=== PATIENT | female | born 1940 | race Caucasian/White ===

== ENCOUNTER 2024-10-10 06:33 | Emergency (ER) | payer OTHER, MEDICAID, SELFPAY ==
[2024-10-10 06:42] VITALS: BP 148/63; PULSE 92; RESP 16; TEMP 36.6; O2SAT 97
--- NOTE | 2024-10-10 06:55 | XR_ITS ---
Examination: AP chest single view TECHNIQUE: AP portable upright chest single view Exam date and time: October 10, 2024, 0803 hours Comparison November 17, 2023. INDICATIONS: Shortness of breath history. FINDINGS: Mild chronic heart failure pattern Mild enlargement cardiac contour. Prominent vascular congestion with mild bibasilar edema Significant bilateral pleural effusions Prominent osteopenia IMPRESSION: Mild heart failure with significant bilateral pleural effusions
--- NOTE | 2024-10-10 06:55 | EKG_ITS ---
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
--- NOTE | 2024-10-10 07:03 | PD.EDSOB ---
ED SOB =RME/HPI General Chief Complaint: Shortness of Breath/Dyspnea Stated Complaint: SOB Time Seen by Provider: 10/10/24 06:41 Arrival date/time: 10/10/24 06:33 Limitations: no limitations RME / HPI RME / HPI Narrative: 83 year old female with history of CHF, HTN, type 2 diabetes presented to the ER accompanied by grandson with a chief complaint of SOB. Per patient, she stated she has chronic pain but had worsened overnight and asked her for pain medication. provided the wrong medication and gave her a BP medication at unknown time. Patient stated no other complaints. Related Data Home Medications ?Medication ?Instructions ?Recorded ?Confirmed metformin 500 mg tablet 500 mg PO QDAY 10/10/21 10/10/21 amlodipine 5 mg tablet 5 mg PO QDAY 11/18/23 11/18/23 celecoxib 100 mg capsule 100 mg PO QDAY 11/18/23 11/18/23 doxazosin 2 mg tablet 2 mg PO HS 11/18/23 11/18/23 Held on 11/20/23. Instructions: Resume on 11/27/23. re-check with PCP rosuvastatin 5 mg tablet 5 mg PO QPM 11/18/23 11/18/23 Previous Rx's ?Medication ?Instructions ?Recorded apixaban 5 mg tablet (Eliquis) 5 mg PO BID 30 days #60 tabs 11/20/23 furosemide 40 mg tablet (Lasix) 40 mg PO QDAY 30 days #30 tabs 11/20/23 lisinopril 2.5 mg tablet 2.5 mg PO QDAY #30 tabs 10/10/24 Allergies Allergy/AdvReac Type Severity Reaction Status Date / Time No Known Allergies Allergy Verified 10/10/24 06:35 Review of Systems Review of Systems Systems Reviewed: All systems reviewed, normal except as documented Past Medical History Past Medical History CARDIAC: Positive Cardiac Disorders, Congestive Heart Failure and Hypertension GASTROINTESTINAL: Positive Pancreatitis ENDOCRINE: Positive Diabetes Mellitus Type 2 Social History SMOKING STATUS: Never smoker ED Exam General Limitations: Present no limitations General appearance: Present alert, in no apparent distress and other (hard of hearing, thin build, frail, speaks in full sentences) Head Head exam: Present atraumatic Eye Eye exam: Present normal appearance, PERRL and EOMI ENT ENT exam: Present normal exam, normal oropharynx and mucous membranes moist Neck Neck exam: Present normal inspection, full ROM and trachea midline Chest Chest inspection: Present symmetric chest wall rise and other (barrel chest) Respiratory Respiratory exam: Present normal lung sounds bilaterally and other (no respiratory distress) Cardiovascular Cardiovascular exam: Present regular rate, normal rhythm and normal heart sounds Abdominal Exam Abdominal exam: Present soft and normal bowel sounds Extremities Exam Extremities exam: Present normal inspection and full ROM Back Exam Back exam: Present normal inspection and full ROM Neurological Exam Neurological exam: Present alert, oriented X3 and CN II-XII intact Psychiatric Psychiatric exam: Present normal affect and normal mood Skin Skin exam: Present warm, dry, intact and normal color Course Course Course Narrative: Chest x-ray has been ordered due to determining etiology of SOB. Quality Measures none Orders Category Date Time Status Chemical Compounder STAT Care 10/10/24 06:55 Completed Continuous Pulse Oximetry ONCE Care 10/10/24 06:55 Completed EKG (ED ONLY) *Do not use* NOW Care 10/10/24 06:55 Completed Discharge Routine Discharge 10/10/24 11:07 Active Discharge Routine Discharge 10/10/24 11:[address] chest wo con Stat Exams 10/10/24 07:23 Completed EKG (ED Only) Stat Exams 10/10/24 06:55 Draft XR chest 1V portable Stat Exams 10/10/24 06:55 Completed B-Type Natriuretic Peptide Stat Lab 10/10/24 08:03 Completed CBC Stat Lab 10/10/24 08:03 Completed Comprehensive Metabolic Panel Stat Lab 10/10/24 08:03 Completed Troponin I Stat Lab 10/10/24 08:03 Completed Aspirin Chew Med 10/10/24 06:55 Discontinued 324 mg PO X1 ONE Vital Signs Vital signs: Vital Signs Temperature 97.8 F 10/10/24 06:42 Pulse Rate 92 10/10/24 06:42 Respiratory Rate 16 10/10/24 06:42 Blood Pressure 148/63 H 10/10/24 06:42 Pulse Oximetry (%) 97 10/10/24 06:42 Oxygen Delivery Method Room Air 10/10/24 06:42 Shortness of Breath / Dyspnea Patient data External records reviewed:: [facility] previous records Clinical information provided by:: patient and family (grandson) Social determinants that could affect healthcare access:: none Patient has the following chronic illnesses:: CHF, HTN, type 2 diabetes How is presenting disease/condition affected by chronic disease/condition?: exacerbated by Evaluation data The following diagnostics were reviewed and interpreted by me:: lab results, radiology exam(s) and EKG tracing(s) (EKG#1: EKG at 0711 hours.Interpreted by me: atrial fibrilation, rate 102) Lab and/or radiology exams considered but not ordered:: none Interpretation Summary: Ordering Physician: Davin Dale MD Date of Service: 10/10/24 Procedure(s): XR chest 1V portable Accession Number(s): [id number] cc: Davin Dale MD; Sam Salcedo MD; Yasmany Gorman MD~ Examination: AP chest single view TECHNIQUE: AP portable upright chest single view Exam date and time: October 10, 2024, 0803 hours Comparison November 17, 2023. INDICATIONS: Shortness of breath history. FINDINGS: Mild chronic heart failure pattern Mild enlargement cardiac contour. Prominent vascular congestion with mild bibasilar edema Significant bilateral pleural effusions Prominent osteopenia IMPRESSION: Mild heart failure with significant bilateral pleural effusions Dictated By: Sam Salcedo MD Signed By: <Electronically signed by Sam Salcedo MD in OV> 10/10/24 0811 Ordering Physician: Davin Dale MD Date of Service: 10/10/24 Procedure(s): CT chest wo con Accession Number(s): [id number] cc: Davin Dale MD; Sam Salecdo MD; Yasmany Gorman MD~ Examination: CT chest, without intravenous contrast. Sagittal and coronal 2-D reconstructions. Exam date and time: October 10, 2024 0925 hours Comparison November 17, 2023 INDICATIONS: Shortness of breath beginning 4 days ago CTDI:vol (mGy) 9.52 DLP: (mGycm) 293 Technique: Multiple 3.0 mm axial sections of the chest to been obtained. Bone and lung density settings are obtained. Sagittal and coronal 2-D reconstructions have been obtained. Low dose protocols were performed. One or more of the following dose reduction techniques were used; automated exposure control, adjustment of the mA and/or KV according to patient size, use of iterative reconstruction technique. Findings: No thoracic aortic aneurysm dilatation Main pulmonary artery segment 32 mm Mild enlargement left atrium and left ventricle Mitral valvular calcification Prominent vascular congestion with mild edema versus pneumonia at the lung bases Large bilateral pleural effusions since 3 to 4 mm pericardial effusion Liver is irregular in contour Spleen is nonenlarged Mild ascites No visualized pancreatic mass Severe osteopenia IMPRESSION: Mild heart failure Edema versus mild pneumonia at the lung bases Large bilateral pleural effusions Cirrhosis versus primary hepatocellular disease Mild ascites Dictated By: Sam Salcedo MD Signed By: <Electronically signed by Sam Salcedo MD in OV> 10/10/24 0947 Medications / Prescriptions Medications or Prescriptions considered but not ordered:: none Medication administrations:: Medication Administration History Discontinued Medications Aspirin (Aspirin 81 Mg Chew) 324 mg PO X1 ONE Stop: 10/10/24 06:56 Last Admin: 10/10/24 07:43 Dose: 324 mg Documented By: TM see above. Consultations Consultation(s) initiated? (list below): No Diagnosis Shortness of Breath Differential Diagnosis: congestive heart failure, pulmonary embolism and other (anxiety ) Most likely diagnosis given after review of the tests above:: Afib, CHF Admission Indicated Admission indicated?: not indicated Explain why admission is indicated or not indicated:: Patient was admitted 11 months ago here with similar symptoms, diagnosed with pericardial effusion. Was under the impression that she might have recurrence of this condition. Work up was negative. I looked through her EMR and could not find a contrindication or a reason why she is not on an LAURA/ARB, therefore I started her on Lisinopril 2.5 mg. Discussed the results with her daughter in law. Also, she may need to be treated for depression, which could be the underlying reason for her insomnia. Admission Request Was there a request for admission?: No Disposition Plan Disposition Plan: Discharge Discharge Attestation Discharge Attestation: The patient and all family members were given an opportunity to ask questions and understood the discharge instructions. Discharge instructions specifically effects, indications for sooner follow up or return to the emergency department, and the expected course of current diagnosis. Patient condition: Stable Discharge Plan Plan Patient Disposition: HOME (Self Care) Discharge Disposition comment: FU with your photonics engineering technician Patient condition on transfer: Stable Prescriptions/Referrals Prescriptions/Med Rec: New lisinopril 2.5 mg tablet 2.5 mg PO QDAY Qty: 30 0RF No Action metformin 500 mg Tablet 500 mg PO QDAY rosuvastatin 5 mg Tablet 5 mg PO QPM Rx Instructions: TAKE WITH DINNER doxazosin 2 mg Tablet 2 mg PO HS celecoxib 100 mg Capsule 100 mg PO QDAY Rx Instructions: TAKE WITH BREAKFAST amlodipine 5 mg Tablet 5 mg PO QDAY Rx Instructions: TAKE AT NOON furosemide [Lasix] 40 mg tablet 40 mg PO QDAY 30 Days Qty: 30 3RF Eliquis 5 mg tablet 5 mg PO BID 30 Days Qty: 60 3RF Referrals: Yasmany Gorman MD [Primary Care Provider] - In 1 week Problem List Clinical Impression: Afib, Congestive heart failure Patient/Caregiver Discharge Instructions Discharge Activity: activity as tolerated Education Materials: AFL/Afib, Coping with Heart Failure Print Language: Algerian Stand Alone Forms: Amy Award Info., Patient Portal Info Letter
--- NOTE | 2024-10-10 07:23 | XR_ITS ---
Examination: CT chest, without intravenous contrast. Sagittal and coronal 2-D reconstructions. Exam date and time: October 10, 2024 0925 hours Comparison November 17, 2023 INDICATIONS: Shortness of breath beginning 4 days ago CTDI:vol (mGy) 9.52 DLP: (mGycm) 293 Technique: Multiple 3.0 mm axial sections of the chest to been obtained. Bone and lung density settings are obtained. Sagittal and coronal 2-D reconstructions have been obtained. Low dose protocols were performed. One or more of the following dose reduction techniques were used; automated exposure control, adjustment of the mA and/or KV according to patient size, use of iterative reconstruction technique. Findings: No thoracic aortic aneurysm dilatation Main pulmonary artery segment 32 mm Mild enlargement left atrium and left ventricle Mitral valvular calcification Prominent vascular congestion with mild edema versus pneumonia at the lung bases Large bilateral pleural effusions since 3 to 4 mm pericardial effusion Liver is irregular in contour Spleen is nonenlarged Mild ascites No visualized pancreatic mass Severe osteopenia IMPRESSION: Mild heart failure Edema versus mild pneumonia at the lung bases Large bilateral pleural effusions Cirrhosis versus primary hepatocellular disease Mild ascites
[2024-10-10] MEDS: ASPIRIN 81 MG CHEW 324 MG PO (07:43)
--- NOTE | 2024-10-10 08:00 | PC.NURSE ---
PT REPORTS THAT SHE IS FEELING SOB. USED [facility] TO COMMUNICATE (KYLIE SP45). PT DENIES ANY PAIN. FAMILY AT BEDSIDE ATTENTIVE TO PT. CALL [facility] IN [place]
[2024-10-10 08:18] LABS: Basophils % (Auto) 0 % (0-2.5); Eosinophils % (Auto) 0 % (0-10); Hematocrit 40.4 % (36.0-46.0); Hemoglobin 13.2 g/dL (12.0-16.0); Immature Granulocytes % (Auto) 1 % (0-0); Immature Granulocytes Auto 0.04 Thou/mm3 (0.00-0.00); Lymphocytes # (Auto) 0.8 Thou/mm3 (1.0-4.8); Lymphocytes % (Auto) 9 % (10-50); Mean Corpuscular HGB Conc 32.7 g/dl (31.0-37.0); Mean Corpuscular Hemoglobin 28.4 pg (25.0-35.0); Mean Corpuscular Volume 87 fL (80-100); Monocytes # (Auto) 0.5 Thou/mm3 (0.0-0.8); Monocytes % (Auto) 6 % (0-12); Neutrophils # (Auto) 7.1 Thou/mm3 (1.8-7.7); Neutrophils % (Auto) 84 % (37-80); Nucleated Red Blood Cell % 0 /100 WBC (0); Platelet Count 234 Thou/mm3 (140-440); RDW Standard Deviation 49.8 fL (36.4-46.3); Red Blood Count 4.65 Miln/mm3 (4.00-5.20); White Blood Count 8.5 Thou/mm3 (3.6-11.0)
[2024-10-10 08:37] LABS: B-Type Natriuretic Peptide 241 pg/mL (0-100)
[2024-10-10 08:39] LABS: Alanine Aminotransferase < 7 U/L (10-49); Albumin, Serum 4.3 gm/dL (3.4-4.8); Albumin/Globulin Ratio 1.5 (1.2-2.2); Alkaline Phosphatase 73 U/L (46-116); Anion Gap 9 (7-16); Aspartate Amino Transferase 13 U/L (0-34); BUN/Creatinine Ratio 37 Ratio (12-20); Bilirubin,Total 0.5 mg/dL (0.3-1.2); Blood Urea Nitrogen 22 mg/dL (9-23); Calcium 9.3 mg/dL (8.3-10.6); Calcium (Corrected) 9.3 mg/dL (8.5-10.1); Carbon Dioxide 28.7 mMol/L (20.0-31.0); Chloride 105 mMol/L (98-107); Creatinine (Component) 0.6 mg/dL (0.6-1.3); Globulin 2.9 gm/dL (2.3-3.5); Glucose 140 mg/dL (74-106); Osmolality,Calculated 290 (275-295); Potassium 3.6 mMol/L (3.4-5.1); Sodium 143 mMol/L (136-145); Total Protein 7.2 gm/dL (5.7-8.2); Troponin I < 0.020 ng/mL (0.0-0.045); eGFR > 60 See Note
[2024-10-10 10:28] VITALS: BP 154/81; PULSE 97; RESP 17; TEMP 36.2; O2SAT 96
[2024-10-10 12:10] VITALS: BP 171/80; PULSE 97; RESP 18; TEMP 36.5; O2SAT 97
== END 2024-10-10 12:41 | disposition home or self-care (01) ==
PROVIDERS: Emergency Provider Emergency Medicine; PCP Family Medicine
DX: I11.0 Hypertensive heart disease with heart failure (principal); I50.9 Heart failure, unspecified; I48.91 Unspecified atrial fibrillation; R18.8 Other ascites; Z79.01 Long term (current) use of anticoagulants
CPT/HCPCS: 36415; 71045; 71250; 80053; 83880; 84484; 85025; 93005; 99284; A9270

== ENCOUNTER 2024-10-25 11:16 | Emergency (ER) | payer MEDICARE, MEDICAID, SELFPAY | END 2024-10-25 12:55 | disposition home or self-care (01) | PROVIDERS: Emergency Provider Emergency Medicine; PCP Student in an Organized Health Care Education/Training Program; Referring Provider Emergency Medicine | DX: R06.02 Shortness of breath (principal) | CPT/HCPCS: 99281 ==

== ENCOUNTER 2024-12-03 08:14 | Emergency (ER) | payer MEDICARE, SELFPAY ==
--- NOTE | 2024-12-03 | XR_ITS ---
Examination: PA chest single view TECHNIQUE: Upright PA chest single view. Date and time: December 03, 2024, 1330 hours Comparison December 03, 2024 8:48 AM INDICATIONS: Post right thoracentesis today FINDINGS: No pneumothorax post thoracentesis Mild prominence cardiac contour Significant bilateral pleural fluid remains IMPRESSION: No pneumothorax post thoracentesis
[2024-12-03 08:20] VITALS: BP 168/90; BP 189/72; PULSE 96; RESP 21; TEMP 36.6; O2SAT 95; BMI 21.8
--- NOTE | 2024-12-03 08:40 | EKG_ITS ---
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
--- NOTE | 2024-12-03 08:40 | XR_ITS ---
Examination: PA lateral chest 2 views TECHNIQUE: Upright PA lateral chest 2 views Date and time: December 03, 2024 0858 hours, comparison October 10, 2024 INDICATION: Chest pain today. FINDINGS: Mild prominence cardiac contour Large right moderate left pleural effusions Moderate vascular congestion Prominent osteopenia IMPRESSION: Large right moderate left pleural effusions
--- NOTE | 2024-12-03 08:55 | PD.EDRME ---
Rapid Medical Screening Exam RME Arrival date/time: 12/03/24 08:14 Chief Complaint: Shortness of Breath/Dyspnea Time Seen by Provider: 12/03/24 08:24 Vital signs: Vital Signs Temperature 97.8 F 12/03/24 08:20 Pulse Rate 96 12/03/24 08:20 Respiratory Rate 21 H 12/03/24 08:20 Blood Pressure 189/72 H 12/03/24 08:20 Pulse Oximetry (%) 95 12/03/24 08:20 Oxygen Delivery Method Room Air 12/03/24 08:20 Vital signs reviewed by provider: Yes RME Narrative: 83-year-old with history of A-fib with brought in by son for evaluation of shortness of breath x 12 hours. Patient reports progressively worsening dyspnea over the last several weeks. She is currently using her 's at home O2 (patient is on does not know how many liters). Patient was pending a cardiac stress test today but canceled the appointment due to worsening dyspnea.
[2024-12-03 09:04] LABS: Basophils % (Auto) 0 % (0-2.5); Eosinophils % (Auto) 0 % (0-10); Hematocrit 40.6 % (36.0-46.0); Hemoglobin 13.6 g/dL (12.0-16.0); Immature Granulocytes % (Auto) 0 % (0-0); Immature Granulocytes Auto 0.01 Thou/mm3 (0.00-0.00); Lymphocytes # (Auto) 0.9 Thou/mm3 (1.0-4.8); Lymphocytes % (Auto) 24 % (10-50); Mean Corpuscular HGB Conc 33.5 g/dl (31.0-37.0); Mean Corpuscular Hemoglobin 27.6 pg (25.0-35.0); Mean Corpuscular Volume 83 fL (80-100); Monocytes # (Auto) 0.3 Thou/mm3 (0.0-0.8); Monocytes % (Auto) 8 % (0-12); Neutrophils # (Auto) 2.6 Thou/mm3 (1.8-7.7); Neutrophils % (Auto) 67 % (37-80); Nucleated Red Blood Cell % 0 /100 WBC (0); Platelet Count 233 Thou/mm3 (140-440); RDW Standard Deviation 44.8 fL (36.4-46.3); Red Blood Count 4.92 Miln/mm3 (4.00-5.20); White Blood Count 3.9 Thou/mm3 (3.6-11.0)
[2024-12-03 09:18] LABS: INR 1.1 (0.9-1.3); Partial Thromboplastin Time 27.3 Seconds (22.0-36.0); Prothrombin Time 12.4 Seconds (9.0-12.2)
[2024-12-03 09:21] LABS: B-Type Natriuretic Peptide 319 pg/mL (0-100)
[2024-12-03 09:35] LABS: Alanine Aminotransferase 10 U/L (10-49); Albumin, Serum 4.4 gm/dL (3.4-4.8); Albumin/Globulin Ratio 1.7 (1.2-2.2); Alkaline Phosphatase 68 U/L (46-116); Anion Gap 7 (7-16); Aspartate Amino Transferase 15 U/L (0-34); BUN/Creatinine Ratio 26 Ratio (12-20); Bilirubin,Total 0.5 mg/dL (0.3-1.2); Blood Urea Nitrogen 13 mg/dL (9-23); Calcium 9.6 mg/dL (8.3-10.6); Calcium (Corrected) 9.6 mg/dL (8.5-10.1); Carbon Dioxide 30.7 mMol/L (20.0-31.0); Chloride 102 mMol/L (98-107); Creatinine (Component) 0.5 mg/dL (0.6-1.3); Globulin 2.6 gm/dL (2.3-3.5); Glucose 90 mg/dL (74-106); LDH (Lactate Dehydrogenase) 155 U/L (120-246); Magnesium 1.3 mg/dL (1.6-2.6); Osmolality,Calculated 279 (275-295); Potassium 3.9 mMol/L (3.4-5.1); Sodium 140 mMol/L (136-145); Troponin I < 0.020 ng/mL (0.0-0.045); eGFR > 60 See Note
[2024-12-03 10:10] LABS: Collection Type, Urine Clean Catch
[2024-12-03 10:18] LABS: Bilirubin,Urine Negative (Negative); Blood,Urine Negative (Negative); Clarity,Urine Clear (Clear/Hazy); Color,Urine Lt-Yellow (Lt Yel-Yel); Glucose, Urine Negative (Negative); Ketones,Urine 1+ (Negative); Leukocyte Esterase,Urine Negative (Negative); Nitrite,Urine Negative (Negative); Protein,Urine Negative (Neg - Trace); RBC,Urine 7 /hpf (0-3); Specific Gravity,Urine 1.016 (1.001-1.035); Squamous Epithelial Cell,Urine 1 /hpf (0-5); Urobilinogen,Urine Negative mg/dL (0.0-1.0); WBC,Urine 2 /hpf (0-5)
[2024-12-03 10:35] LABS: Amphetamine/Methamp Scrn,U Negative (Negative); Barbiturate Screen,Urine Negative (Negative); Benzodiazepines Screen,Urine Negative (Negative); Benzoylecgonine Screen, Ur Negative (Negative); Fentanyl Screen,Urine Negative (Negative); Opiate Screen,Urine Negative (Negative); THC Screen,Urine Negative (Negative)
--- NOTE | 2024-12-03 11:24 | PD.EDSOB ---
ED SOB =RME/HPI General Chief Complaint: Shortness of Breath/Dyspnea Stated Complaint: SOB since last night Time Seen by Provider: 12/03/24 08:24 Arrival date/time: 12/03/24 08:14 RME / HPI RME / HPI Narrative: 83-year-old with history of A-fib hypertension, diabetes mellitus, history of pleural effusion in the past, with brought in by son for evaluation of shortness of breath x 12 hours. Patient reports progressively worsening dyspnea over the last several weeks. She is currently using her 's at home O2 (patient is on does not know how many liters). Patient denies any cough. Denies any fever denies any chest pain. Patient was pending a cardiac stress test today but canceled the appointment due to worsening dyspnea. Related Data Home Medications ?Medication ?Instructions ?Recorded ?Confirmed metformin 500 mg tablet 500 mg PO QDAY 10/10/21 10/10/21 amlodipine 5 mg tablet 5 mg PO QDAY 11/18/23 11/18/23 celecoxib 100 mg capsule 100 mg PO QDAY 11/18/23 11/18/23 doxazosin 2 mg tablet 2 mg PO HS 11/18/23 11/18/23 Held on 11/20/23. Instructions: Resume on 11/27/23. re-check with PCP rosuvastatin 5 mg tablet 5 mg PO QPM 11/18/23 11/18/23 Previous Rx's ?Medication ?Instructions ?Recorded apixaban 5 mg tablet (Eliquis) 5 mg PO BID 30 days #60 tabs 11/20/23 furosemide 40 mg tablet (Lasix) 40 mg PO QDAY 30 days #30 tabs 11/20/23 lisinopril 2.5 mg tablet 2.5 mg PO QDAY #30 tabs 10/10/24 Allergies Allergy/AdvReac Type Severity Reaction Status Date / Time No Known Allergies Allergy Verified 12/03/24 08:17 Review of Systems Review of Systems Narrative Review of Systems: Review of system reviewed and within normal limits except mentioned in HPI ED Exam Narrative Physical exam: VITAL SIGNS: Reviewed. GENERAL APPEARANCE: Alert and interactive, follows commands, no acute distress, HEAD AND FACE: Non-traumatic. ENT: PERRL, pink conjunctivitis, eyelid no trauma, Mucous membrane moist. NECK: Supple, nontender, no nuchal rigidity. CHEST: No tenderness, no crepitus, no paradoxical movement, no retractions. LUNGS: Symmetric, no rales, no wheezing, no ronchi, no stridor, decreased breath sounds bilaterally. HEART: Regular rate, regular rhythm, no murmur, no gallops. ABDOMEN: Soft, positive bowel sounds, nondistended, no guarding, nontender, no rebound, no masses, RECTAL: Deferred. GENITAL: Deferred. NEUROLOGICAL: Gross motor function intact sensory function intact, Appropriate for age. MUSCULOSKELETAL: low back nontender, full range of motion. EXTREMITIES: Nontender, full range of motion. SKIN: Color pink, dry, no rash, no lacerations, no abrasions, no contusions. LYMPHATICS: Deferred. Course Quality Measures none Orders Category Date Time Status EKG (ED ONLY) *Do not use* NOW Care 12/03/24 08:40 Completed EKG (ED Only) Stat Exams 12/03/24 08:40 Draft US thoracentesis Stat Exams 12/03/24 11:31 Completed XR chest 1V post procedure Stat Exams 12/03/24 Completed XR chest 2V Stat Exams 12/03/24 08:40 Completed Amylase,Pleural Fluid Routine Lab 12/03/24 14:20 Completed B-Type Natriuretic Peptide Stat Lab 12/03/24 08:50 Completed Body Fld Cult w [address] Routine Lab 12/03/24 14:20 Received CBC Stat Lab 12/03/24 08:50 Completed Comprehensive Metabolic Panel Stat Lab 12/03/24 08:50 Completed Drug Screen,Urine Stat Lab 12/03/24 10:04 Completed Glucose,Pleural Fluid Routine Lab 12/03/24 14:20 Completed LDH (Lactate Dehydrogenase) Stat Lab 12/03/24 08:50 Completed LDH,Pleural Fluid Routine Lab 12/03/24 14:20 Completed Magnesium Stat Lab 12/03/24 08:50 Completed Partial Thromboplastin Time Stat Lab 12/03/24 08:50 Completed Pleural Fld Cell Count Diff Routine Lab 12/03/24 14:20 Completed Protein Total,Pleural Fluid Routine Lab 12/03/24 14:20 Completed Prothrombin Time with INR Stat Lab 12/03/24 08:50 Completed Troponin I Stat Lab 12/03/24 08:50 Completed Urinalysis Stat Lab 12/03/24 10:04 Completed Lidocaine 1% Pf 30 ml [Xylocaine 1% Pf 30 ml] Med 12/03/24 12:34 Discontinued 30 ml .ROUTE .STK-MED ONE Magnesium Sulfate 2 GM Ivpb [Magnesium Sulfate Ivpb] Med 12/03/24 11:31 Discontinued 2 gm in 50 ml IV X1 Vital Signs Vital signs: Vital Signs Temperature 97.8 F 12/03/24 08:20 Pulse Rate 96 12/03/24 08:20 Respiratory Rate 21 H 12/03/24 08:20 Blood Pressure 189/72 H 12/03/24 08:20 Pulse Oximetry (%) 95 12/03/24 08:20 Oxygen Delivery Method Room Air 12/03/24 08:20 Shortness of Breath / Dyspnea [facility] Narrative MDM Narrative:: 83-year-old with history of A-fib hypertension, diabetes mellitus, history of pleural effusion in the past, with brought in by son for evaluation of shortness of breath x 12 hours. Patient reports progressively worsening dyspnea over the last several weeks. She is currently using her 's at home O2 (patient is on does not know how many liters). Patient denies any cough. Denies any fever denies any chest pain. Patient was pending a cardiac stress test today but canceled the appointment due to worsening dyspnea. EKG as interpreted by me showed chronic A-fib, ventricular rate of 99 bpm, no ST segment elevation or depression noted patient CBC showed no leukocytosis, neurovascular labs unremarkable. Urinalysis no UTI. Chest x-ray showed Large right moderate left pleural effusions Plan of care discussed with the family and patient including ultrasound-guided thoracentesis.. Both of them agree with the plan. Patient underwent ultrasound-guided thoracentesis and was able to remove 1 L of fluid. Was sent to the lab for pleural fluid analysis. Pending pathology results. Patient was advised to follow-up with PCP for pathology results none Patient data External records reviewed:: None Clinical information provided by:: patient and family Social determinants that could affect healthcare access:: none Patient has the following chronic illnesses:: Hypertension chronic A-fib diabetes mellitus How is presenting disease/condition affected by chronic disease/condition?: exacerbated by Evaluation data The following diagnostics were reviewed and interpreted by me:: lab results, radiology exam(s) and EKG tracing(s) Lab and/or radiology exams considered but not ordered:: None Interpretation Summary: See results MDM Medications / Prescriptions Medications or Prescriptions considered but not ordered:: None Medication administrations:: Medication Administration History Discontinued Medications Magnesium Sulfate (Magnesium Sulfate Ivpb) 2 gm in 50 mls @ 25 mls/hr IV X1 ONE Stop: 12/03/24 13:30 Last Infusion: 12/03/24 13:58 Dose: Infused Documented By: Admin: 12/03/24 11:54 Dose: 25 mls/hr Documented By: MARTINA Lidocaine HCl (Lidocaine Inj Pf 1% 30 Ml Vial) Confirm Administered Dose 30 ml .ROUTE .STK-MED ONE Stop: 12/03/24 12:35 Last Admin: 12/03/24 13:19 Dose: Not Given Documented By: MARTINA Non-Admin Reason: Override Medication Magnesium sulfate Consultations Consultation(s) initiated? (list below): No Diagnosis Shortness of Breath Differential Diagnosis: acute exacerbation of chronic obstructive airways disease, congestive heart failure and community acquired pneumonia Most likely diagnosis given after review of the tests above:: Pleural fluid, history of congestive heart failure Admission Indicated Admission indicated?: not indicated Admission Request Was there a request for admission?: No Disposition Plan Disposition Plan: Discharge Discharge Attestation Discharge Attestation: The patient and all family members were given an opportunity to ask questions and understood the discharge instructions. Discharge instructions specifically effects, indications for sooner follow up or return to the emergency department, and the expected course of current diagnosis. Patient condition: Stable Discharge Plan Plan Patient Disposition: HOME (Self Care) Discharge Disposition comment: Stable Prescriptions/Referrals Prescriptions/Med Rec: No Action metformin 500 mg Tablet 500 mg PO QDAY rosuvastatin 5 mg Tablet 5 mg PO QPM Rx Instructions: TAKE WITH DINNER doxazosin 2 mg Tablet 2 mg PO HS celecoxib 100 mg Capsule 100 mg PO QDAY Rx Instructions: TAKE WITH BREAKFAST amlodipine 5 mg Tablet 5 mg PO QDAY Rx Instructions: TAKE AT NOON furosemide [Lasix] 40 mg tablet 40 mg PO QDAY 30 Days Qty: 30 3RF Eliquis 5 mg tablet 5 mg PO BID 30 Days Qty: 60 3RF lisinopril 2.5 mg tablet 2.5 mg PO QDAY Qty: 30 0RF Referrals: Yasmeen Tran MD [Primary Care Provider] - In 1 week Problem List Clinical Impression: Pleural effusion Patient/Caregiver Discharge Instructions Discharge Activity: activity as tolerated Education Materials: Thoracentesis Dc Additional Instructions: Thank you for the opportunity for serving you today. You are stable for discharged . You are advised to: Follow-up with your PCP in 1 to 2 days Return to ED for worsening of symptoms Increase oral fluids Follow-up with your PCP regarding the pathology of your pleural effusion. Print Language: Yi Stand Alone Forms: Amy Award Info., Patient Portal Info Letter PA/MANUEL Supervising Physician JAMAICA/MANUEL Supervising Physician: Lloyd Duran MD
[2024-12-03 11:29] VITALS: BP 142/112; PULSE 99; RESP 27; O2SAT 97
[2024-12-03 11:31] VITALS: BP 188/117; PULSE 102; RESP 29; O2SAT 95
--- NOTE | 2024-12-03 11:31 | XR_ITS ---
Examination: Ultrasound-guided right thoracentesis Ultrasound right hemithorax Ultrasound left hemithorax Date and time: 12/03/2024 at 1307 hours INDICATIONS: Difficulty breathing this week, large right pleural effusion on chest x-ray today TECHNIQUE AND FINDINGS: Informed consent provided. Timeout performed. Ultrasound images right hemithorax demonstrate large right pleural effusion and images left hemithorax small left pleural effusion Skin prepped over the right back and sterile drape applied ultrasound sterile technique hand hygiene 1% lidocaine administered for local anesthesia Utilizing ultrasonographic guidance 5 Malaysian catheter placed in the right pleural space 850 cc pleural fluid removed Estimated blood loss 0 cc IMPRESSION: Successful ultrasound-guided right thoracentesis, 850 cc pleural fluid removed
[2024-12-03] MEDS: Magnesium Sulfate 2 GM Ivpb 2 GM/50 ML BAG IV (11:54)
[2024-12-03 12:00] VITALS: BP 153/90; PULSE 99; RESP 28; O2SAT 94
[2024-12-03 12:24] VITALS: BP 153/90; PULSE 105; RESP 18; TEMP 36.6; O2SAT 95
[2024-12-03 12:30] VITALS: BP 176/111; PULSE 96; RESP 21; O2SAT 95
[2024-12-03 14:55] LABS: Pleural Fluid WBC 928 /cmm
[2024-12-03 14:56] LABS: Pleural Fluid Appearance Hazy; Pleural Fluid Color Yellow; Pleural Fluid Mononuclear 97 %; Pleural Fluid Polynuclear 3 %; Pleural Fluid RBC 1000 /cmm
[2024-12-03 15:08] LABS: Amylase,Pleural Fluid 78 IU/L; Glucose,Pleural Fluid 96 mg/dL; LDH,Pleural Fluid 93 IU/L; Protein Total,Pleural Fluid 4.2 g/dL
== END 2024-12-03 16:35 | disposition home or self-care (01) ==
PROVIDERS: Nurse Practitioner Family; Physician Assistant; Emergency Provider Emergency Medicine; PCP Family Medicine
DX: J90 Pleural effusion, not elsewhere classified (principal); I45.10 Unspecified right bundle-branch block; I48.91 Unspecified atrial fibrillation; I10 Essential (primary) hypertension; E11.9 Type 2 diabetes mellitus without complications
CPT/HCPCS: 32555; 36415; 71046; 80053; 80307; 81001; 82150; 82945; 83615; 83735; 83880; 84157; 84484; 85025; 85610; 85730; 87070; 87075; 87205; 89051; 93005; 96365; 96366; 99284; C1729; J3475

== ENCOUNTER 2024-12-11 10:28 | Emergency (ER) | payer MEDICARE, SELFPAY ==
[2024-12-11 10:41] VITALS: BP 178/80; PULSE 102; RESP 16; TEMP 36.9; O2SAT 95; BMI 23.4
--- NOTE | 2024-12-11 11:08 | EKG_ITS ---
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
--- NOTE | 2024-12-11 11:08 | XR_ITS ---
Examination: PA lateral chest 2 views Technique: Upright PA lateral chest 2 views Date and time: December 11, 2024 1119 hrs. Comparison December 04, 1999 185 Indications: Status post thoracentesis Findings: Chronic heart failure pattern with mild to moderate enlargement cardiac contour prominent vascular congestion and significant bilateral pleural effusions No pneumothorax Impression: Chronic heart failure pattern No pneumothorax
--- NOTE | 2024-12-11 11:09 | PD.EDRME ---
Rapid Medical Screening Exam RME Arrival date/time: 12/11/24 10:28 This is an 83-year-old female that comes into the emergency room with complaints of shortness of breath. Patient recently had a thoracentesis done on December 03, 2024. 850 mL of fluid was removed at that time. Patient complains of shortness of breath and some mild chest pain. Patient has a history of high blood pressure, diabetes, atrial fibrillation and hyperlipidemia. I have greeted and performed a focused initial assessment of this patient. Initial appropriate labs ordered at this time. A comprehensive ED assessment and evaluation of the patient and analysis of all test and completion of medical decision making process will be conducted by additional ED provider. Chief Complaint: Shortness of Breath/Dyspnea Time Seen by Provider: 12/11/24 10:31 Vital signs: Vital Signs Temperature 98.5 F 12/11/24 10:41 Pulse Rate 102 H 12/11/24 10:41 Respiratory Rate 16 12/11/24 10:41 Blood Pressure 178/80 H 12/11/24 10:41 Pulse Oximetry (%) 95 12/11/24 10:41 Oxygen Delivery Method Room Air 12/11/24 10:41
[2024-12-11 12:27] LABS: Basophils # (Auto) 0.0 Thou/mm3 (0.0-0.2); Basophils % (Auto) 1 % (0-2.5); Eosinophils # (Auto) 0.2 Thou/mm3 (0.0-0.5); Eosinophils % (Auto) 4 % (0-10); Hematocrit 42.1 % (36.0-46.0); Hemoglobin 13.5 g/dL (12.0-16.0); Immature Granulocytes Auto 0.02 Thou/mm3 (0.00-0.00); Lymphocytes # (Auto) 1.2 Thou/mm3 (1.0-4.8); Lymphocytes % (Auto) 20 % (10-50); Mean Corpuscular HGB Conc 32.1 g/dl (31.0-37.0); Mean Corpuscular Hemoglobin 27.9 pg (25.0-35.0); Mean Corpuscular Volume 87 fL (80-100); Monocytes # (Auto) 0.5 Thou/mm3 (0.0-0.8); Monocytes % (Auto) 8 % (0-12); Neutrophils # (Auto) 4.2 Thou/mm3 (1.8-7.7); Neutrophils % (Auto) 68 % (37-80); Nucleated Red Blood Cell # 0.00 Thou/mm3 (0.00-0.00); Nucleated Red Blood Cell % 0 /100 WBC (0); Platelet Count 272 Thou/mm3 (140-440); RDW Standard Deviation 48.3 fL (36.4-46.3); Red Blood Count 4.84 Miln/mm3 (4.00-5.20); White Blood Count 6.1 Thou/mm3 (3.6-11.0)
[2024-12-11 12:46] LABS: INR 1.1 (0.9-1.3); Prothrombin Time 11.9 Seconds (9.0-12.2)
[2024-12-11 12:51] LABS: B-Type Natriuretic Peptide 279 pg/mL (0-100)
[2024-12-11 12:53] LABS: Alanine Aminotransferase 73 U/L (10-49); Albumin, Serum 4.4 gm/dL (3.4-4.8); Albumin/Globulin Ratio 1.5 (1.2-2.2); Alkaline Phosphatase 79 U/L (46-116); Anion Gap 6 (7-16); Aspartate Amino Transferase 66 U/L (0-34); BUN/Creatinine Ratio 30 Ratio (12-20); Bilirubin,Total 0.5 mg/dL (0.3-1.2); Blood Urea Nitrogen 15 mg/dL (9-23); Calcium 9.6 mg/dL (8.3-10.6); Calcium (Corrected) 9.6 mg/dL (8.5-10.1); Carbon Dioxide 30.9 mMol/L (20.0-31.0); Chloride 104 mMol/L (98-107); Creatinine (Component) 0.5 mg/dL (0.6-1.3); Estimated Creatinine Clearance 61.0 mL/min (>60); Globulin 2.9 gm/dL (2.3-3.5); Glucose 92 mg/dL (74-106); Osmolality,Calculated 282 (275-295); Potassium 4.5 mMol/L (3.4-5.1); Sodium 141 mMol/L (136-145); Total Protein 7.3 gm/dL (5.7-8.2); Troponin I < 0.020 ng/mL (0.0-0.045); eGFR > 60 See Note
--- NOTE | 2024-12-11 15:05 | PD.EDSOB ---
ED SOB =RME/HPI General Chief Complaint: Shortness of Breath/Dyspnea Stated Complaint: SOB, not able to sleep Time Seen by Provider: 12/11/24 10:31 Arrival date/time: 12/11/24 10:28 Limitations: no limitations RME / HPI RME / HPI Narrative: Patient is a 83-year-old female who is here today with her son. She has 1 day history of increased shortness of breath. This is a chronic issue and happens intermittently. She has remote history of pericardial effusion. She was seen recently here for a pleural effusion and had a thoracentesis performed for similar symptoms. She has known atrial fibrillation that is chronic. She is currently taking Eliquis for that. She also has a history of heart failure. She denies any increased lower leg edema. No fevers or chills. She has no chest pain or abdominal pain. No nausea or vomiting. She has no other acute complaints. Related Data Home Medications ?Medication ?Instructions ?Recorded ?Confirmed metformin 500 mg tablet 500 mg PO QDAY 10/10/21 10/10/21 amlodipine 5 mg tablet 5 mg PO QDAY 11/18/23 11/18/23 celecoxib 100 mg capsule 100 mg PO QDAY 11/18/23 11/18/23 doxazosin 2 mg tablet 2 mg PO HS 11/18/23 11/18/23 Held on 11/20/23. Instructions: Resume on 11/27/23. re-check with PCP rosuvastatin 5 mg tablet 5 mg PO QPM 11/18/23 11/18/23 Previous Rx's ?Medication ?Instructions ?Recorded apixaban 5 mg tablet (Eliquis) 5 mg PO BID 30 days #60 tabs 11/20/23 furosemide 40 mg tablet (Lasix) 40 mg PO QDAY 30 days #30 tabs 11/20/23 lisinopril 2.5 mg tablet 2.5 mg PO QDAY #30 tabs 10/10/24 Allergies Allergy/AdvReac Type Severity Reaction Status Date / Time No Known Allergies Allergy Verified 12/11/24 10:32 Review of Systems Review of Systems Systems Reviewed: All systems reviewed, normal except as documented ED Exam General Limitations: Present no limitations General appearance: Present alert and in no apparent distress Head Head exam: Present atraumatic Eye Eye exam: Present normal appearance, PERRL and EOMI ENT ENT exam: Present normal exam, normal oropharynx and mucous membranes moist Neck Neck exam: Present normal inspection, full ROM and trachea midline Chest Chest inspection: Present normal inspection and symmetric chest wall rise Respiratory Respiratory exam: Present normal lung sounds bilaterally Cardiovascular Cardiovascular exam: Present regular rate, normal rhythm and normal heart sounds Abdominal Exam Abdominal exam: Present soft and normal bowel sounds Extremities Exam Extremities exam: Present normal inspection and full ROM Back Exam Back exam: Present normal inspection and full ROM Neurological Exam Neurological exam: Present alert, oriented X3 and CN II-XII intact Psychiatric Psychiatric exam: Present normal affect and normal mood Skin Skin exam: Present warm, dry, intact and normal color Course Quality Measures none Orders Category Date Time Status EKG (ED ONLY) *Do not use* NOW Care 12/11/24 11:08 Completed EKG (ED Only) Stat Exams 12/11/24 11:08 Draft US thoracentesis Stat Exams 12/11/24 13:55 Ordered XR chest 2V Stat Exams 12/11/24 11:08 Completed BNP [B-Type Natriuretic Peptide] Stat Lab 12/11/24 12:09 Completed CBC Stat Lab 12/11/24 12:09 Completed Comprehensive Metabolic Panel Stat Lab 12/11/24 12:09 Completed PT [Prothrombin Time with INR] Stat Lab 12/11/24 12:09 Completed Troponin I Stat Lab 12/11/24 12:09 Completed Vital Signs Vital signs: Vital Signs Temperature 98.5 F 12/11/24 10:41 Pulse Rate 102 H 12/11/24 10:41 Respiratory Rate 16 12/11/24 10:41 Blood Pressure 178/80 H 12/11/24 10:41 Pulse Oximetry (%) 95 12/11/24 10:41 Oxygen Delivery Method Room Air 12/11/24 10:41 Shortness of Breath / Dyspnea MDM Narrative MDM Narrative:: Patient is a 83-year-old female who is here today with her son. She has 1 day history of increased shortness of breath. This is a chronic issue and happens intermittently. She has remote history of pericardial effusion. She was seen recently here for a pleural effusion and had a thoracentesis performed for similar symptoms. She has known atrial fibrillation that is chronic. She is currently taking Eliquis for that. She also has a history of heart failure. She denies any increased lower leg edema. No fevers or chills. She has no chest pain or abdominal pain. No nausea or vomiting. She has no other acute complaints. On exam, patient is nontoxic-appearing and has no tachypnea. She is in no respiratory stress. Vital signs are stable. She was able to maintain her saturations above 95% while walking. Workup reveals pleural effusion. We did consider a thoracentesis today, however radiology is not available. I do believe the patient is stable for outpatient workup and discharge. We discussed close return precautions. Patient understand agree to return as needed any worsening or emergent changes. Patient data External records reviewed:: [facility] previous records Clinical information provided by:: patient and family Social determinants that could affect healthcare access:: none Patient has the following chronic illnesses:: Atrial fibrillation, CHF, hypertension, diabetes How is presenting disease/condition affected by chronic disease/condition?: exacerbated by Evaluation data The following diagnostics were reviewed and interpreted by me:: lab results (No leukocytosis or significant anemia, no metabolic derangement, AST and ALT are slightly elevated at 66 and 73. BNP is 279.), radiology exam(s) (Pleural effusion) and EKG tracing(s) (EKG reveals atrial fibrillation at [address] changes or dynamic T waves.) Lab and/or radiology exams considered but not ordered:: n/a Interpretation Summary: Pleural effusion, chronic atrial fibrillation Medications / Prescriptions Medications or Prescriptions considered but not ordered:: n/a Medication administrations:: n/a Consultations Consultation(s) initiated? (list below): No Diagnosis Shortness of Breath Differential Diagnosis: acute exacerbation of chronic obstructive airways disease, congestive heart failure, community acquired pneumonia and asthma with exacerbation Most likely diagnosis given after review of the tests above:: Pleural effusion, atrial fibrillation Admission Indicated Admission indicated?: not indicated Admission Request Was there a request for admission?: No Disposition Plan Disposition Plan: Discharge Discharge Attestation Discharge Attestation: The patient and all family members were given an opportunity to ask questions and understood the discharge instructions. Discharge instructions specifically effects, indications for sooner follow up or return to the emergency department, and the expected course of current diagnosis. Patient condition: Stable Discharge Plan Plan Patient Disposition: HOME (Self Care) Patient condition on transfer: Stable Prescriptions/Referrals Prescriptions/Med Rec: No Action metformin 500 mg Tablet 500 mg PO QDAY rosuvastatin 5 mg Tablet 5 mg PO QPM Rx Instructions: TAKE WITH DINNER doxazosin 2 mg Tablet 2 mg PO HS celecoxib 100 mg Capsule 100 mg PO QDAY Rx Instructions: TAKE WITH BREAKFAST amlodipine 5 mg Tablet 5 mg PO QDAY Rx Instructions: TAKE AT NOON furosemide [Lasix] 40 mg tablet 40 mg PO QDAY 30 Days Qty: 30 3RF Eliquis 5 mg tablet 5 mg PO BID 30 Days Qty: 60 3RF lisinopril 2.5 mg tablet 2.5 mg PO QDAY Qty: 30 0RF Referrals: Yasmeen Tran MD [Primary Care Provider] - In 1 week Problem List Clinical Impression: Pleural effusion Patient/Caregiver Discharge Instructions Education Materials: ED Pleural Effusion Additional Instructions: - Contact your clinic and schedule close follow-up appointment next week. - Please do not hesitate to return to the emergency room anytime for any worsening changes as needed. Print Language: Zambian Stand Alone Forms: [employer] Award Info., Patient Portal Info Letter
== END 2024-12-11 15:58 | disposition home or self-care (01) ==
PROVIDERS: Nurse Practitioner Family; Emergency Provider Family Medicine; PCP Family Medicine
DX: I11.0 Hypertensive heart disease with heart failure (principal); I50.9 Heart failure, unspecified; I48.20 Chronic atrial fibrillation, unspecified; Z79.01 Long term (current) use of anticoagulants
CPT/HCPCS: 36415; 71046; 80053; 83880; 84484; 85025; 85610; 93005; 99283

== ENCOUNTER → 2024-12-15 | Outpatient (CLI) | payer MEDICARE, SELFPAY ==
--- NOTE | 2024-12-15 12:23 | XR_ITS ---
Examination: Ultrasound-guided right thoracentesis Ultrasound right hemithorax, ultrasound left hemithorax Date and time: December 15, 2024 1229 hours INDICATIONS: Shortness of breath this week, history heart failure with recurrent bilateral pleural effusions this month TECHNIQUE AND FINDINGS: Grayscale sonographic images right and left hemithoraces Significant bilateral pleural effusions Informed consent provided. Timeout performed. Skin prepped over the right hemithorax and sterile drape applied, hand hygiene ultrasound sterile technique 1% lidocaine administered for local anesthesia Utilizing ultrasonographic guidance successful percutaneous placement 5 Greek catheter in the right pleural space 650 cc pleural fluid removed Estimated blood loss 0 cc IMPRESSION: Successful ultrasound-guided right thoracentesis, 650 cc pleural fluid removed
--- NOTE | 2024-12-15 12:46 | XR_ITS ---
Examination: PA chest single view TECHNIQUE: Upright PA chest single view Date and time: December 15, 2024 1254 hours Comparison December 11, 2024 INDICATIONS: Post right thoracentesis today. FINDINGS: Significant decrease in right pleural fluid. No pneumothorax. Large left pleural effusion. Enlarged cardiac contour with vascular congestion IMPRESSION: No pneumothorax post right thoracentesis today
== END | disposition home or self-care (01) ==
PROVIDERS: Referring Provider Student in an Organized Health Care Education/Training Program; Visit Provider Student in an Organized Health Care Education/Training Program
DX: J90 Pleural effusion, not elsewhere classified (principal)
CPT/HCPCS: 32555; C1729

== ENCOUNTER → 2025-01-08 | Outpatient (CLI) | payer MEDICARE, MEDICAID, SELFPAY ==
--- NOTE | 2025-01-08 11:39 | XR_ITS ---
Examination: PA lateral chest 2 views TECHNIQUE: Upright PA lateral chest 2 views Date and time: January 08, 2025 1150 hours INDICATIONS: Shortness of breath abnormal sounds on auscultation this month FINDINGS: Normal heart size Moderate bilateral pleural effusions Moderate vascular congestion IMPRESSION: Mild chronic heart failure pattern with moderate bilateral pleural effusions
== END | disposition home or self-care (01) ==
PROVIDERS: PCP Student in an Organized Health Care Education/Training Program; Referring Provider Student in an Organized Health Care Education/Training Program; Visit Provider Student in an Organized Health Care Education/Training Program
DX: J90 Pleural effusion, not elsewhere classified (principal)
CPT/HCPCS: 71046

== ENCOUNTER → 2025-01-11 | Outpatient (CLI) | payer MEDICARE, MEDICAID, SELFPAY ==
--- NOTE | 2025-01-11 09:30 | XR_ITS ---
Examination: Screening digital mammography, bilateral Computer aided detection 3-D breast Tomosynthesis, bilateral Date and time of exam: January 11, 2025 0933 hours Compared to mammograms dating to October 23, 2010 Indication: Screening Technique: Nonmagnified MLO, CC views of the breasts to been obtained, reconstructed from 3-D Tomosynthesis images. R2 computer aided detection program utilized for evaluation of suspicious masses and/or abnormal calcifications. 3-D Tomosynthesis images obtained. Findings: Scattered areas of fibroglandular density. Benign calcifications. No interval suspicious masses Impression: BI-RADS category II: Benign Findings. Recommend 1 year follow-up mammogram.
== END | disposition home or self-care (01) ==
PROVIDERS: PCP Student in an Organized Health Care Education/Training Program; Referring Provider Student in an Organized Health Care Education/Training Program; Visit Provider Student in an Organized Health Care Education/Training Program
DX: Z12.31 Encounter for screening mammogram for malignant neoplasm of breast (principal); R92.323 Mammographic fibroglandular density, bilateral breasts; R92.1 Mammographic calcification found on diagnostic imaging of breast
CPT/HCPCS: 77063; 77067

== ENCOUNTER → 2025-01-12 | Outpatient (CLI) | payer MEDICARE, MEDICAID, SELFPAY ==
--- NOTE | 2025-01-12 11:10 | XR_ITS ---
Examination: CT chest, without intravenous contrast. CT abdomen, without intravenous contrast. CT pelvis, without intravenous contrast. 2-D sagittal and coronal reconstructions. 3-D reconstructions. Date and time of exam:January 12, 2025 1116 hours INDICATIONS: Intermittent chest pain shortness of breath one week, CT chest October 10, 2024 mild heart failure pneumonia at the lung bases large bilateral pleural effusions, cirrhosis CTDI vol (mgy) 6.41 DLP (MGycm)423 Technique: Multiple CT images, 3.0 mm slice thickness, obtained chest, abdomen, pelvis, with the high-resolution 64 slice scanner.. Sagittal and coronal 2-D reconstructions are obtained. 3-D reconstructions Low dose protocols were performed. One or more of the following dose reduction techniques were used; automated exposure control, adjustment of the mA and/or KV according to patient size, use of iterative reconstruction technique. Findings: Thoracic aorta calcification no aneurysmal dilatation Pulmonary artery segments are not enlarged Mild to moderate enlargement cardiac contour Mitral valvular calcification Significant vascular congestion 3 mm pulmonary nodule left lower lobe Large bilateral pleural effusions Cirrhosis, liver nodular in contour Gallbladder wall appears thickened Spleen is not enlarged No pancreatic mass No hydronephrosis Mild ascites No bowel obstruction 27 mm fat-containing umbilical hernia No diverticulitis Anteverted uterus with 35 mm uterine body mass Bladder intact Severe osteopenia IMPRESSION: Mild chronic heart failure pattern Large bilateral pleural effusions 3 mm pulmonary nodule left lower lobe, with this study as baseline recommend continued 6 month follow-up CT chest without contrast Cirrhosis Mild ascites Gallbladder wall appears thickened, recommend hepatobiliary sonography follow-up Recommend pelvic sonography to assess 35 mm uterine body mass
[2025-01-12 12:01] LABS: Basophils # (Auto) 0.0 Thou/mm3 (0.0-0.2); Basophils % (Auto) 1 % (0-2.5); Eosinophils # (Auto) 0.0 Thou/mm3 (0.0-0.5); Eosinophils % (Auto) 0 % (0-10); Hematocrit 40.7 % (36.0-46.0); Hemoglobin 13.2 g/dL (12.0-16.0); Immature Granulocytes Auto 0.01 Thou/mm3 (0.00-0.00); Lymphocytes # (Auto) 1.3 Thou/mm3 (1.0-4.8); Lymphocytes % (Auto) 27 % (10-50); Mean Corpuscular HGB Conc 32.4 g/dl (31.0-37.0); Mean Corpuscular Hemoglobin 28.0 pg (25.0-35.0); Mean Corpuscular Volume 86 fL (80-100); Monocytes # (Auto) 0.5 Thou/mm3 (0.0-0.8); Monocytes % (Auto) 9 % (0-12); Neutrophils # (Auto) 3.0 Thou/mm3 (1.8-7.7); Neutrophils % (Auto) 63 % (37-80); Nucleated Red Blood Cell # 0.00 Thou/mm3 (0.00-0.00); Nucleated Red Blood Cell % 0 /100 WBC (0); Platelet Count 241 Thou/mm3 (140-440); RDW Standard Deviation 49.7 fL (36.4-46.3); Red Blood Count 4.72 Miln/mm3 (4.00-5.20); White Blood Count 4.8 Thou/mm3 (3.6-11.0)
[2025-01-12 12:26] LABS: Albumin, Serum 4.4 gm/dL (3.4-4.8); Anion Gap 11 (7-16); BUN/Creatinine Ratio 26 Ratio (12-20); Blood Urea Nitrogen 13 mg/dL (9-23); Calcium 9.5 mg/dL (8.3-10.6); Calcium (Corrected) 9.5 mg/dL (8.5-10.1); Carbon Dioxide 29.3 mMol/L (20.0-31.0); Chloride 101 mMol/L (98-107); Creatinine (Component) 0.5 mg/dL (0.6-1.3); Glucose 95 mg/dL (74-106); Osmolality,Calculated 281 (275-295); Phosphorous 3.4 mg/dL (2.4-5.1); Potassium 4.2 mMol/L (3.4-5.1); Sodium 141 mMol/L (136-145); eGFR > 60 See Note
== END | disposition home or self-care (01) ==
LOC: CCTX 10:54 → COPL 11:31
PROVIDERS: PCP Student in an Organized Health Care Education/Training Program; Referring Provider Student in an Organized Health Care Education/Training Program; Visit Provider Radiology Diagnostic Radiology
DX: J90 Pleural effusion, not elsewhere classified (principal); R91.1 Solitary pulmonary nodule; K74.60 Unspecified cirrhosis of liver; R18.8 Other ascites; N32.89 Other specified disorders of bladder
CPT/HCPCS: 36415; 71250; 74176; 80069; 85025

== ENCOUNTER → 2025-01-14 | Outpatient (CLI) | payer MEDICARE, MEDICAID, SELFPAY ==
[2025-01-14 14:28] LABS: Basophils # (Auto) 0.0 Thou/mm3 (0.0-0.2); Basophils % (Auto) 1 % (0-2.5); Eosinophils # (Auto) 0.0 Thou/mm3 (0.0-0.5); Eosinophils % (Auto) 1 % (0-10); Hematocrit 39.8 % (36.0-46.0); Hemoglobin 12.8 g/dL (12.0-16.0); Immature Granulocytes Auto 0.02 Thou/mm3 (0.00-0.00); Lymphocytes # (Auto) 1.3 Thou/mm3 (1.0-4.8); Lymphocytes % (Auto) 23 % (10-50); Mean Corpuscular HGB Conc 32.2 g/dl (31.0-37.0); Mean Corpuscular Hemoglobin 27.7 pg (25.0-35.0); Mean Corpuscular Volume 86 fL (80-100); Monocytes # (Auto) 0.5 Thou/mm3 (0.0-0.8); Monocytes % (Auto) 9 % (0-12); Neutrophils # (Auto) 3.8 Thou/mm3 (1.8-7.7); Neutrophils % (Auto) 67 % (37-80); Nucleated Red Blood Cell # 0.00 Thou/mm3 (0.00-0.00); Nucleated Red Blood Cell % 0 /100 WBC (0); Platelet Count 278 Thou/mm3 (140-440); RDW Standard Deviation 49.8 fL (36.4-46.3); Red Blood Count 4.62 Miln/mm3 (4.00-5.20); White Blood Count 5.7 Thou/mm3 (3.6-11.0)
[2025-01-14 14:48] LABS: INR 1.1 (0.9-1.3); Partial Thromboplastin Time 26.0 Seconds (22.0-36.0); Prothrombin Time 11.5 Seconds (9.0-12.2)
== END | disposition home or self-care (01) ==
LOC: COPL 12:56
PROVIDERS: PCP Family Medicine; Referring Provider Student in an Organized Health Care Education/Training Program; Visit Provider Student in an Organized Health Care Education/Training Program
DX: J90 Pleural effusion, not elsewhere classified (principal)
CPT/HCPCS: 36415; 85025; 85610; 85730

== ENCOUNTER → 2025-01-15 | Outpatient (CLI) | payer MEDICARE, SELFPAY ==
--- NOTE | 2025-01-15 | XR_ITS ---
Examination: PA lateral chest 2 views TECHNIQUE: Upright PA lateral chest 2 views Date and time: January 15, 2025 0948 hours COMPARISON: January 08, 2025 INDICATIONS: Post right thoracentesis FINDINGS: Mild prominence cardiac contour Moderate elevation left hemidiaphragm. No pneumothorax postthoracentesis today IMPRESSION: No pneumothorax post thoracentesis
--- NOTE | 2025-01-15 09:08 | XR_ITS ---
Examination: Ultrasound-guided right thoracentesis Ultrasound left hemithorax Ultrasound right hemithorax Date and time: January 25, 2025 0920 hours INDICATIONS: Difficulty breathing, chronic, bilateral pleural effusions on CT chest examination January 12, 2025 TECHNIQUE AND FINDINGS: Sonographic images right and left hemithoraces Large right moderate left pleural fluid Informed consent provided. Timeout performed. Skin prepped over the right hemithorax and sterile drape applied hand hygiene ultrasound sterile technique 1% lidocaine administered for local anesthesia Utilizing ultrasonographic guidance 5 Tongan catheter placed in the right pleural space 950 cc pleural fluid removed Estimated blood loss 0 cc IMPRESSION: Successful ultrasound-guided right thoracentesis, 950 cc pleural fluid removed
== END | disposition home or self-care (01) ==
PROVIDERS: PCP Student in an Organized Health Care Education/Training Program; Referring Provider Student in an Organized Health Care Education/Training Program; Visit Provider Student in an Organized Health Care Education/Training Program
DX: J90 Pleural effusion, not elsewhere classified (principal)
CPT/HCPCS: 32555; C1729

== ENCOUNTER 2025-02-09 11:41 | Emergency (ER) | payer MEDICARE, MEDICAID, SELFPAY ==
[2025-02-09 12:19] VITALS: BP 156/78; PULSE 94; RESP 18; TEMP 36.6; O2SAT 95; BMI 22.2
--- NOTE | 2025-02-09 12:24 | XR_ITS ---
Examination: Ultrasound-guided right thoracentesis Ultrasound right hemithorax ultrasound left hemithorax Date and time: February 09, 2025 1358 hours INDICATIONS: Difficulty breathing this week, bilateral pleural effusions on chest x-ray January 15, 2025 TECHNIQUE AND FINDINGS: Sonographic images right and left hemithoraces demonstrates significant bilateral pleural effusions Informed consent provided. Timeout performed. Skin prepped over the right hemithorax and sterile drape applied hand hygiene ultrasound sterile technique 1% lidocaine administered for local anesthesia Utilizing ultrasonographic guidance 5 Tongan catheter placed in the right pleural space 975 cc pleural fluid removed Estimated blood loss 0 cc IMPRESSION: Significant bilateral pleural effusions Successful ultrasound-guided right thoracentesis, 975 cc pleural fluid removed
--- NOTE | 2025-02-09 12:24 | PD.EDRME ---
Rapid Medical Screening Exam E Arrival date/time: 02/09/25 11:41 84-year-old female with a history of hypertension, type 2 diabetes, CHF presents to the emergency room with a chief complaint of shortness of breath x 1 week. Patient states she has a history of pleural effusions requiring thoracentesis. I have greeted and performed a focused initial assessment of this patient. A comprehensive ED assessment and evaluation of the patient, analysis of all test results, and completion of the medical decision making process will be conducted by additional ED providers. Chief Complaint: Shortness of Breath/Dyspnea Time Seen by Provider: 02/09/25 12:13 Vital signs: Vital Signs Temperature 97.9 F 02/09/25 12:19 Pulse Rate 94 02/09/25 12:19 Respiratory Rate 18 02/09/25 12:19 Blood Pressure 156/78 H 02/09/25 12:19 Pulse Oximetry (%) 95 02/09/25 12:19 Oxygen Delivery Method Room Air 02/09/25 12:19 Vital signs reviewed by provider: No
--- NOTE | 2025-02-09 12:25 | EKG_ITS ---
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
--- NOTE | 2025-02-09 12:25 | XR_ITS ---
Examination: PA lateral chest 2 views TECHNIQUE: Upright PA lateral chest 2 views Date and time: February 09, 2025 1311 hours INDICATIONS: Difficulty breathing today. FINDINGS: Normal heart size Moderate vascular congestion. Moderate right pleural effusion. Atelectasis right lower lobe. Prominent osteopenia IMPRESSION: Moderate right pleural effusion
[2025-02-09 13:11] LABS: Basophils # (Auto) 0.0 Thou/mm3 (0.0-0.2); Basophils % (Auto) 0 % (0-2.5); Eosinophils # (Auto) 0.0 Thou/mm3 (0.0-0.5); Eosinophils % (Auto) 0 % (0-10); Hematocrit 38.9 % (36.0-46.0); Hemoglobin 12.6 g/dL (12.0-16.0); Immature Granulocytes Auto 0.02 Thou/mm3 (0.00-0.00); Lymphocytes # (Auto) 1.1 Thou/mm3 (1.0-4.8); Lymphocytes % (Auto) 21 % (10-50); Mean Corpuscular HGB Conc 32.4 g/dl (31.0-37.0); Mean Corpuscular Hemoglobin 28.3 pg (25.0-35.0); Mean Corpuscular Volume 87 fL (80-100); Monocytes # (Auto) 0.5 Thou/mm3 (0.0-0.8); Monocytes % (Auto) 11 % (0-12); Neutrophils # (Auto) 3.5 Thou/mm3 (1.8-7.7); Neutrophils % (Auto) 67 % (37-80); Nucleated Red Blood Cell # 0.00 Thou/mm3 (0.00-0.00); Nucleated Red Blood Cell % 0 /100 WBC (0); Platelet Count 237 Thou/mm3 (140-440); RDW Standard Deviation 53.9 fL (36.4-46.3); Red Blood Count 4.45 Miln/mm3 (4.00-5.20); White Blood Count 5.1 Thou/mm3 (3.6-11.0)
[2025-02-09 13:29] LABS: B-Type Natriuretic Peptide 183 pg/mL (0-100)
[2025-02-09 13:30] LABS: INR 1.1 (0.9-1.3); Partial Thromboplastin Time 25.1 Seconds (22.0-36.0); Prothrombin Time 11.5 Seconds (9.0-12.2)
[2025-02-09 13:43] LABS: Alanine Aminotransferase 9 U/L (10-49); Albumin, Serum 4.3 gm/dL (3.4-4.8); Albumin/Globulin Ratio 1.8 (1.2-2.2); Alkaline Phosphatase 66 U/L (46-116); Anion Gap 11 (7-16); Aspartate Amino Transferase 14 U/L (0-34); BUN/Creatinine Ratio 22 Ratio (12-20); Bilirubin,Total 0.5 mg/dL (0.3-1.2); Blood Urea Nitrogen 11 mg/dL (9-23); Calcium 10.0 mg/dL (8.3-10.6); Calcium (Corrected) 10.0 mg/dL (8.5-10.1); Carbon Dioxide 27.6 mMol/L (20.0-31.0); Chloride 102 mMol/L (98-107); Creatinine (Component) 0.5 mg/dL (0.6-1.3); Estimated Creatinine Clearance 58.0 mL/min (>60); Globulin 2.4 gm/dL (2.3-3.5); Glucose 81 mg/dL (74-106); Osmolality,Calculated 279 (275-295); Potassium 4.1 mMol/L (3.4-5.1); Sodium 141 mMol/L (136-145); Total Protein 6.7 gm/dL (5.7-8.2); Troponin I < 0.020 ng/mL (0.0-0.045); eGFR > 60 See Note
--- NOTE | 2025-02-09 14:15 | XR_ITS ---
Examination: PA chest single view TECHNIQUE: Upright PA chest single view Date and time: February 09, 2025 1418 hours, comparison February 09, 2025 1311 hours INDICATIONS: Post right thoracentesis FINDINGS: No pneumothorax post right thoracentesis Mildly prominent cardiac contour Moderate elevation left hemidiaphragm IMPRESSION: No pneumothorax post right thoracentesis
--- NOTE | 2025-02-09 17:17 | PD.EDSOB ---
ED SOB =RME/HPI General Chief Complaint: Shortness of Breath/Dyspnea Stated Complaint: DIFFICULTY BREATHING Time Seen by Provider: 02/09/25 12:13 Arrival date/time: 02/09/25 11:41 RME / HPI RME / HPI Narrative: 02/09/25 11:41 84-year-old female with a history of hypertension, type 2 diabetes, CHF presents to the emergency room with a chief complaint of shortness of breath x 1 week. Patient states she has a history of pleural effusions requiring thoracentesis. I have greeted and performed a focused initial assessment of this patient. A comprehensive ED assessment and evaluation of the patient, analysis of all test results, and completion of the medical decision making process will be conducted by additional ED providers. DR. SUMMERS MAIN ED EVALUATION 84 year old female with history of hypertension, diabetes, pleural effusions requiring thoracentesis (twice before, last performed 1 month ago) presents to the ED sent by her PCP for evaluation of shortness of breath. Per son, the patient had consulted with her PCP today due to feeling short of breath and was advised to come here for further evaluation/treatment. Denies fevers, chills, sweats. Denies chest pain. Denies nausea, vomiting, diarrhea, constipation. Denies dysuria, urinary frequency and urgency. Geologist: Dr. Lopez Related Data Home Medications ?Medication ?Instructions ?Recorded ?Confirmed metformin 500 mg tablet 500 mg PO QDAY 10/10/21 10/10/21 amlodipine 5 mg tablet 5 mg PO QDAY 11/18/23 11/18/23 celecoxib 100 mg capsule 100 mg PO QDAY 11/18/23 11/18/23 doxazosin 2 mg tablet 2 mg PO HS 11/18/23 11/18/23 Held on 11/20/23. Instructions: Resume on 11/27/23. re-check with PCP rosuvastatin 5 mg tablet 5 mg PO QPM 11/18/23 11/18/23 Previous Rx's ?Medication ?Instructions ?Recorded apixaban 5 mg tablet (Eliquis) 5 mg PO BID 30 days #60 tabs 11/20/23 furosemide 40 mg tablet (Lasix) 40 mg PO QDAY 30 days #30 tabs 11/20/23 lisinopril 2.5 mg tablet 2.5 mg PO QDAY #30 tabs 10/10/24 Allergies Allergy/AdvReac Type Severity Reaction Status Date / Time No Known Allergies Allergy Verified 02/09/25 11:44 Review of Systems Review of Systems Systems Reviewed: All systems reviewed, normal except as documented Past Medical History Past Medical History CARDIAC: Positive Cardiac Disorders, Congestive Heart Failure and Hypertension GASTROINTESTINAL: Positive Pancreatitis ENDOCRINE: Positive Diabetes Mellitus Type 2 Family History FAMILY HISTORY: Negative Family Psychiatric Problems, Family Respiratory Disorders, Family Cardiac Disorders, Family Gastrointestinal Problems, Family Cancer, Family Surgery or Family Anesthesia Reaction Social History SMOKING STATUS: Never smoker ED Exam Narrative Physical exam: GENERAL APPEARANCE: alert and oriented x 4, well-developed, well-nourished, no acute distress HEENT: Normocephalic, atraumatic; pupils equal, round, reactive to light; EOMI; mucous membranes pink, moist; oropharynx clear NECK: Supple LUNGS: CTABL; no wheezes, no rales, no rhonchi HEART: Regular rate, regular rhythm; normal S1, S2; no murmurs ABDOMEN: non distended; normal BS; soft, no tenderness, no guarding, no rebound; no masses, no organomegaly, no hernia BACK: no CVA tenderness EXTREMITIES: atraumatic; no edema NEUROLOGIC: awake; alert and oriented x4; cranial nerves II-XII grossly intact; no focal sensory or motor deficits PSYCHIATRIC: appropriate mood and affect SKIN: warm, dry, normal color; no rashes Course Quality Measures none Orders Category Date Time Status EKG (ED ONLY) *Do not use* NOW Care 02/09/25 12:25 Completed EKG (ED Only) Stat Exams 02/09/25 12:25 Draft US thoracentesis Stat Exams 02/09/25 12:24 Completed XR chest 1V post procedure Stat Exams 02/09/25 14:15 Completed XR chest 2V Stat Exams 02/09/25 12:25 Completed BNP [B-Type Natriuretic Peptide] Stat Lab 02/09/25 12:48 Completed CBC Stat Lab 02/09/25 12:48 Completed CMP [Comprehensive Metabolic Panel] Stat Lab 02/09/25 12:48 Completed PT [Prothrombin Time with INR] Stat Lab 02/09/25 12:48 Completed PTT [Partial Thromboplastin Time] Stat Lab 02/09/25 12:48 Completed Troponin I Stat Lab 02/09/25 12:48 Completed Vital Signs Vital signs: Vital Signs Temperature 97.9 F 02/09/25 12:19 Pulse Rate 94 02/09/25 12:19 Respiratory Rate 18 02/09/25 12:19 Blood Pressure 156/78 H 02/09/25 12:19 Pulse Oximetry (%) 95 02/09/25 12:19 Oxygen Delivery Method Room Air 02/09/25 12:19 Pulse ox is 95% on room air which is adequate. Shortness of Breath / Dyspnea MDM Narrative MDM Narrative:: Martha Winters am scribing for and in the presence of Dr. Summers. 1717: On reassessment after thoracentesis the patient reports feeling improved. Discussed todays results and she is in agreement with plan. Will DC home. Patient data External records reviewed:: [facility] previous records Clinical information provided by:: patient Social determinants that could affect healthcare access:: none Patient has the following chronic illnesses:: HTN, DM, pleural effusions How is presenting disease/condition affected by chronic disease/condition?: exacerbated by Evaluation data The following diagnostics were reviewed and interpreted by me:: lab results, radiology exam(s) and EKG tracing(s) (02/09/2025 @ 12:29 PM. Atrial fibrillation, rate 94, no acute ischemic changes ) Lab and/or radiology exams considered but not ordered:: None Interpretation Summary: Ordering Physician: Alejandro Olmos Date of Service: 02/09/25 Procedure(s): US thoracentesis Accession Number(s): [id number] cc: Alejandro Olmos; Sam Salcedo MD; NO PRIMARY/FAMILY,PHYSICIAN~ Examination: Ultrasound-guided right thoracentesis Ultrasound right hemithorax ultrasound left hemithorax Date and time: February 09, 2025 1358 hours INDICATIONS: Difficulty breathing this week, bilateral pleural effusions on chest x-ray January 15, 2025 TECHNIQUE AND FINDINGS: Sonographic images right and left hemithoraces demonstrates significant bilateral pleural effusions Informed consent provided. Timeout performed. Skin prepped over the right hemithorax and sterile drape applied hand hygiene ultrasound sterile technique 1% lidocaine administered for local anesthesia Utilizing ultrasonographic guidance 5 Maltese catheter placed in the right pleural space 975 cc pleural fluid removed Estimated blood loss 0 cc IMPRESSION: Significant bilateral pleural effusions Successful ultrasound-guided right thoracentesis, 975 cc pleural fluid removed Dictated By: Sam Salcedo MD Signed By: <Electronically signed by Sam Salcedo MD in OV> 02/09/25 1437 Ordering Physician: Alejandro Olmos Date of Service: 02/09/25 Procedure(s): XR chest 2V Accession Number(s): [id number] cc: Alejandro Olmos; Sam Salcedo MD; NO PRIMARY/FAMILY,PHYSICIAN~ Examination: PA lateral chest 2 views TECHNIQUE: Upright PA lateral chest 2 views Date and time: February 09, 2025 1311 hours INDICATIONS: Difficulty breathing today. FINDINGS: Normal heart size Moderate vascular congestion. Moderate right pleural effusion. Atelectasis right lower lobe. Prominent osteopenia IMPRESSION: Moderate right pleural effusion Dictated By: Sam Salcedo MD Signed By: <Electronically signed by Sam Salcedo MD in OV> 02/09/25 1321 Ordering Physician: Sam Salcedo MD Date of Service: 02/09/25 Procedure(s): XR chest 1V post procedure Accession Number(s): [id number] cc: Sam Salcedo MD; NO PRIMARY/FAMILY,PHYSICIAN~ Examination: PA chest single view TECHNIQUE: Upright PA chest single view Date and time: February 09, 2025 1418 hours, comparison February 09, 2025 1311 hours INDICATIONS: Post right thoracentesis FINDINGS: No pneumothorax post right thoracentesis Mildly prominent cardiac contour Moderate elevation left hemidiaphragm IMPRESSION: No pneumothorax post right thoracentesis Dictated By: Sam Salcedo MD Signed By: <Electronically signed by Sam Salcedo MD in OV> 02/09/25 1429 Medications / Prescriptions Medications or Prescriptions considered but not ordered:: None Medication administrations:: None Consultations Consultation(s) initiated? (list below): No Diagnosis Shortness of Breath Differential Diagnosis: acute exacerbation of chronic obstructive airways disease, congestive heart failure, community acquired pneumonia and other (Pleural effusion ) Most likely diagnosis given after review of the tests above:: Recurrent right pleural effusion Status post thoracentesis Dyspnea Admission Indicated Admission indicated?: not indicated Admission Request Was there a request for admission?: No Disposition Plan Disposition Plan: Discharge Discharge Attestation Discharge Attestation: The patient and all family members were given an opportunity to ask questions and understood the discharge instructions. Discharge instructions specifically effects, indications for sooner follow up or return to the emergency department, and the expected course of current diagnosis. Patient condition: Stable Discharge Plan Plan Patient Disposition: HOME (Self Care) Prescriptions/Referrals Prescriptions/Med Rec: No Action metformin 500 mg Tablet 500 mg PO QDAY rosuvastatin 5 mg Tablet 5 mg PO QPM Rx Instructions: TAKE WITH DINNER doxazosin 2 mg Tablet 2 mg PO HS celecoxib 100 mg Capsule 100 mg PO QDAY Rx Instructions: TAKE WITH BREAKFAST amlodipine 5 mg Tablet 5 mg PO QDAY Rx Instructions: TAKE AT NOON furosemide [Lasix] 40 mg tablet 40 mg PO QDAY 30 Days Qty: 30 3RF Eliquis 5 mg tablet 5 mg PO BID 30 Days Qty: 60 3RF lisinopril 2.5 mg tablet 2.5 mg PO QDAY Qty: 30 0RF Referrals: No Primary/Family,Physician [Primary Care Provider] - In 1 week Problem List Clinical Impression: Recurrent right pleural effusion, Status post thoracentesis, Dyspnea Patient/Caregiver Discharge Instructions Education Materials: Pleural Effusion, Thoracentesis Dc Print Language: Portuguese Stand Alone Forms: Amy Award Info., Patient Portal Info Letter
[2025-02-09 17:45] VITALS: BP 120/72; PULSE 83; RESP 18; TEMP 36.8; O2SAT 96
== END 2025-02-09 17:51 | disposition home or self-care (01) ==
PROVIDERS: Nurse Practitioner Family; Emergency Provider Emergency Medicine
DX: J90 Pleural effusion, not elsewhere classified (principal); I11.0 Hypertensive heart disease with heart failure; I50.9 Heart failure, unspecified; I48.91 Unspecified atrial fibrillation
CPT/HCPCS: 32555; 36415; 71046; 80053; 83880; 84484; 85025; 85610; 85730; 93005; 99283; C1729

== ENCOUNTER → 2025-02-19 | Outpatient (CLI) | payer MEDICARE, MEDICAID, SELFPAY ==
--- NOTE | 2025-02-19 | XR_ITS ---
Examination: PA lateral chest 2 views TECHNIQUE: Upright PA lateral chest 2 views Date and time: February 19, 2025 at 12:03 PM INDICATIONS: Shortness of breath beginning several months ago FINDINGS: Mild opacity right base with blunting of the right and left costophrenic angles Normal heart size IMPRESSION: Suspicious for early pneumonia right base Small bilateral pleural effusions
--- NOTE | 2025-02-19 11:00 | XR_ITS ---
Examination: Pelvic ultrasound, transabdominal, complete Technique: Transabdominal ultrasound of the pelvis performed using grayscale imaging Date and time of exam: February 19, 2025 1125 hours INDICATIONS: CT examination January 12, 2025 35 mm uterine body mass FINDINGS: Uterus 7.4 cm uterine body mass 23 x 17 x 26 mm Right ovary obscured by bowel gas Left ovary 3.7 cm arterial flow 31 mm cyst IMPRESSION: 23 x 17 x 26 mm uterine body area of fibroid degeneration
== END | disposition home or self-care (01) ==
PROVIDERS: PCP Student in an Organized Health Care Education/Training Program; Referring Provider Student in an Organized Health Care Education/Training Program; Visit Provider Student in an Organized Health Care Education/Training Program
DX: D25.9 Leiomyoma of uterus, unspecified (principal); J90 Pleural effusion, not elsewhere classified
CPT/HCPCS: 71046; 76856

== ENCOUNTER 2025-03-04 11:54 | Inpatient (IN) | payer MEDICARE, MEDICAID, SELFPAY ==
[2025-03-04 12:37] VITALS: BP 167/70; PULSE 92; RESP 18; TEMP 37.1; O2SAT 96
--- NOTE | 2025-03-04 12:49 | XR_ITS ---
Examination: AP chest single view TECHNIQUE: Upright AP portable chest single view Date and time: March 04, 2025, 1255 hours, comparison 02/19/2025 INDICATIONS: Chest pain shortness of breath beginning 2 days ago. FINDINGS: Moderate right pleural effusion Normal heart size Mild left pleural effusion No lobar pneumonia or pulmonary edema IMPRESSION: Moderate right pleural effusion
--- NOTE | 2025-03-04 12:49 | EKG_ITS ---
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
--- NOTE | 2025-03-04 12:51 | PD.EDCHEST ---
ED Chest Pain RME/HPI General Chief Complaint: Chest Pain Stated Complaint: SENT BY SPUN PASTE MACHINE OPERATOR,YURIDIA,ROSARIO, TO BE ADMITTED Time Seen by Provider: 03/04/25 12:26 Arrival date/time: 03/04/25 11:54 Limitations: no limitations RME / HPI RME / HPI narrative: 84 year old female with history of hypertension, diabetes, pleural effusions requiring thoracentesis (four times before, last performed 3 weeks ago) presents to the ED sent by cigarette vendor Dr. Lopez for evaluation of shortness of breath. Per son, patient had appeared short of breath yesterday and consulted with cigarette vendor today. In the ED, patient complains of pain to her chest. Does not complain of feeling short of breath. Denies fevers, chills, sweats, nausea, vomiting, diarrhea, constipation, abdominal pain. Help Desk Specialist: Dr. Lopez Related Data Home Medications ?Medication ?Instructions ?Recorded ?Confirmed metformin 500 mg tablet 1,000 mg PO .wmeals 10/10/21 03/04/25 rosuvastatin 5 mg tablet 5 mg PO QPM 11/18/23 03/04/25 albuterol sulfate 90 mcg/actuation 1 inh inhalation Q4H 03/04/25 03/04/25 aerosol inhaler diltiazem HCl 180 mg 180 mg PO Q24H 03/04/25 03/04/25 tablet,extended release 24 hr ([place]) furosemide 40 mg tablet (Lasix) 20 mg PO QDAY 03/04/25 03/04/25 losartan 50 mg tablet 50 mg PO QDAY 03/04/25 03/04/25 trazodone 50 mg tablet 50 mg PO HS 03/04/25 03/04/25 Previous Rx's ?Medication ?Instructions ?Recorded apixaban 5 mg tablet (Eliquis) 5 mg PO BID 30 days #60 tabs 11/20/23 Allergies Allergy/AdvReac Type Severity Reaction Status Date / Time No Known Allergies Allergy Verified 03/04/25 11:57 Review of Systems Review of Systems Systems Reviewed: All systems reviewed, normal except as documented Past Medical History Past Medical History CARDIAC: Positive Cardiac Disorders, Congestive Heart Failure and Hypertension GASTROINTESTINAL: Positive Pancreatitis ENDOCRINE: Positive Diabetes Mellitus Type 2 Family History FAMILY HISTORY: Negative Family Psychiatric Problems, Family Respiratory Disorders, Family Cardiac Disorders, Family Gastrointestinal Problems, Family Cancer, Family Surgery or Family Anesthesia Reaction Social History SMOKING STATUS: Never smoker ED Exam General Limitations: Present no limitations General appearance: Present alert and other (Ill appearing not in distress ) Head Head exam: Present atraumatic, normocephalic and normal inspection Eye Eye exam: Present normal appearance, PERRL and EOMI ENT ENT exam: Present normal exam, normal oropharynx and mucous membranes moist Neck Neck exam: Present normal inspection, full ROM and trachea midline Chest Chest inspection: Present normal inspection and symmetric chest wall rise Respiratory Respiratory exam: Present other (decreased breath sounds right side ) Cardiovascular Cardiovascular exam: Present regular rate, normal rhythm and normal heart sounds Abdominal Exam Abdominal exam: Present soft and normal bowel sounds; Absent distention, tenderness or guarding Extremities Exam Extremities exam: Present normal inspection and full ROM Back Exam Back exam: Present normal inspection and full ROM Neurological Exam Neurological exam: Present alert, oriented X3 and CN II-XII intact Psychiatric Psychiatric exam: Present normal affect and normal mood Skin Skin exam: Present warm, dry, intact and normal color Course Quality Measures none Orders Category Date Time Status Patient Condition Routine Admission 03/04/25 15:54 Ordered Activity as Tolerated Routine Care 03/04/25 18:02 Ordered Bedside Blood Glucose ACHS Care 03/04/25 19:19 Completed Manager Of Community Relations NOW Care 03/04/25 12:50 Completed Comfort Measures NEEDED Care 03/04/25 18:00 Completed Continuous Pulse Oximetry NOW Care 03/04/25 18:04 Completed EKG (ED ONLY) *Do not use* NOW Care 03/04/25 12:49 Completed Flu & Pneumonia Vaccine Screen ONCE Care 03/04/25 18:25 Completed Miscellaneous Nursing Order NOW Care 03/04/25 18:25 Completed Notify provider NEEDED Care 03/04/25 15:54 Completed Notify provider NEEDED Care 03/04/25 17:59 Completed Obtain weight 06 Care 03/04/25 18:05 Completed Consult to Cardiology Routine Cons 03/04/25 18:30 Ordered Diet Cardiac Diet 03/05/25 Breakfast Active CA echo doppler complete Routine Exams 03/04/25 18:23 Completed EKG (ED Only) Stat Exams 03/04/25 12:49 Draft US thoracentesis Stat Exams 03/04/25 13:18 Completed XR chest 1V portable Stat Exams 03/04/25 12:49 Completed XR chest 1V post procedure Stat Exams 03/04/25 14:31 Completed RERE IFA Screen w/refl, IFA* Routine Lab 03/05/25 08:50 Received Amylase,Pleural Fluid Stat Lab 03/04/25 14:25 Completed B-Type Natriuretic Peptide Stat Lab 03/04/25 14:05 Completed Body Fld Culture & Gram Stain Stat Lab 03/04/25 14:25 Received C-Reactive Protein Routine Lab 03/05/25 05:30 Completed CBC AM DRAW Lab 03/05/25 05:30 Completed CBC AM DRAW Lab 03/06/25 05:12 Completed CBC Stat Lab 03/04/25 14:05 Completed CRP [C-Reactive Protein] Routine Lab 03/05/25 05:30 Completed Cocci Serology IgM with reflex to IgG [Cocci Serology, Lab 03/05/25 08:50 Completed Unk History] Routine Comprehensive Metabolic Panel AM DRAW Lab 03/05/25 05:30 Completed Comprehensive Metabolic Panel AM DRAW Lab 03/06/25 05:12 Completed Comprehensive Metabolic Panel Stat Lab 03/04/25 14:05 Completed Free T4 (Free Thyroxine) Routine Lab 03/05/25 05:30 Completed Glucose,Pleural Fluid Stat Lab 03/04/25 14:25 Completed Hemoglobin A1C [Glycohemoglobin w (eAG)] AM DRAW Lab 03/05/25 05:30 Completed LDH (Lactate Dehydrogenase) Stat Lab 03/04/25 14:05 Completed LDH,Pleural Fluid Stat Lab 03/04/25 14:25 Completed Lipid Panel AM DRAW Lab 03/05/25 05:30 Completed Magnesium AM DRAW Lab 03/05/25 05:30 Completed Magnesium AM DRAW Lab 03/06/25 05:12 Completed Magnesium Stat Lab 03/04/25 14:05 Completed Partial Thromboplastin Time Stat Lab 03/04/25 14:05 Completed Pleural Fld Cell Count Diff Stat Lab 03/04/25 14:25 Completed Protein Total,Pleural Fluid Stat Lab 03/04/25 14:25 Completed Prothrombin Time with INR Stat Lab 03/04/25 14:05 Completed Sed Rate (ESR) Routine Lab 03/05/25 05:30 Completed Specific [place], Body Fluid Stat Lab 03/04/25 14:25 Completed Thyroid Stimulating Hormone Routine Lab 03/05/25 05:30 Completed Troponin I Stat Lab 03/04/25 14:05 Completed pH,Body Fluid Stat Lab 03/04/25 14:25 Completed Acetaminophen Tab [Tylenol ES Tab] Med 03/05/25 08:18 Discontinued 1,000 mg PO Q6H PRN Acetaminophen Tab [Tylenol Tab] Med 03/04/25 18:04 Discontinued 1,000 mg PO Q6H PRN Apixaban [Eliquis] Med 03/05/25 09:00 Discontinued 2.5 mg PO BID Dextrose 50% Syr [D50w Syringe Abboject] Med 03/04/25 19:19 Discontinued 25 ml IV Q15MIN PRN Dextrose 50% Syr [D50w Syringe Abboject] Med 03/04/25 19:19 Discontinued 50 ml IV Q15MIN PRN Diltiazem Cd [Cardizem Cd] Med 03/05/25 09:00 Discontinued 180 mg PO QDAY Furosemide Inj [Lasix Inj] Med 03/05/25 09:00 Discontinued 40 mg IVP QDAY Glucagon Inj Med 03/04/25 19:19 Discontinued 1 mg IM Q15MIN PRN INSULIN LISPRO (AdmeLOG) [HumaLOG] Med 03/05/25 07:30 Discontinued See Protocol SC AC Labetalol IV [Trandate IV] Med 03/04/25 18:34 Discontinued 10 mg IVP Q6H PRN Lidocaine 1% Pf 30 ml [Xylocaine 1% Pf 30 ml] Med 03/04/25 13:57 Discontinued 30 ml .ROUTE .STK-MED ONE Lisinopril [Prinivil] Med 03/05/25 09:00 Discontinued 2.5 mg PO QDAY Magnesium Sulfate 4 GM Ivpb [Magnesium Sulfate Ivpb] Med 03/04/25 19:20 Discontinued 4 gm in 50 ml IV X1 Ondansetron Inj [Zofran Inj] Med 03/04/25 18:09 Discontinued 4 mg IVP Q6H PRN traZODone HCL [Desyrel] Med 03/04/25 21:00 Discontinued 50 mg PO HS Code Status Routine Oth 03/04/25 15:54 Completed Code Status Routine Oth 03/04/25 18:29 Completed EKG (RT) Routine RT 03/05/25 07:00 Draft Oxygen Delivery PRN RT 03/04/25 18:04 Completed Vital Signs Vital signs: Vital Signs Temperature 98.7 F 03/04/25 12:37 Pulse Rate 92 03/04/25 12:37 Respiratory Rate 18 03/04/25 12:37 Blood Pressure 167/70 H 03/04/25 12:37 Pulse Oximetry (%) 96 03/04/25 12:37 Oxygen Delivery Method Room Air 03/04/25 12:37 Pulse ox is 96% on room air which is adequate. Chest Pain MDM Narrative MDM Narrative:: IMartha, shalom scribing for and in the presence of Dr. Yin. Patient p/w shortness of breath and recurrent pleural effusion. VS and exam as listed. Concern for CHF, acs, pneumonia, malignancy among others. Ordered labs, EKG, CXR. CXR with right sided pleural effusion. Ordered pleural fluid studies and radiology performed thoracentesis. Labs w/o any significant hematologic or metabolic abnl. 15:06p I spoke with cigarette vendor Dr. Lopez and discussed todays results. Requesting patient to be admitted. Requests that testing be performed inpatient to assess for etiology of recurrent pleural effusion 15:07p I spoke with hospitalist team C regarding admission. Kindly accepts patient for admission. Patient data External records reviewed:: [facility] previous records Clinical information provided by:: patient and family Social determinants that could affect healthcare access:: none Patient has the following chronic illnesses:: hypertension, diabetes, pleural effusions requiring thoracentesis (four times before, last performed 3 weeks ago) How is presenting disease/condition affected by chronic disease/condition?: exacerbated by Evaluation data The following diagnostics were reviewed and interpreted by me:: lab results, radiology exam(s) and EKG tracing(s) Lab and/or radiology exams considered but not ordered:: None Interpretation Summary: See [facility] Medications / Prescriptions Medications or Prescriptions considered but not ordered:: None Medication administrations:: Medication Administration History Discontinued Medications Acetaminophen (Acetaminophen 325 Mg Tablet) 1,000 mg PO Q6H PRN PRN Reason: Fever >99.9 Stop: 04/03/25 18:03 Acetaminophen (Acetaminophen 500 Mg Tablet) 1,000 mg PO Q6H PRN PRN Reason: Fever >99.9 Stop: 04/03/25 18:03 Albuterol (Albuterol Inh 8 Gm) 1 puff INH Q4HR PRN PRN Reason: SHORTNESS OF BREATH Stop: 04/05/25 03:05 Last Admin: 03/06/25 09:06 Dose: 1 puff Documented By: DARRELL Apixaban (Apixaban 2.5 Mg Tablet) 2.5 mg PO BID JENIFFER Stop: 04/04/25 08:59 Last Admin: 03/06/25 08:38 Dose: 2.5 mg Documented By: Admin: 03/05/25 20:49 Dose: 2.5 mg Documented By: Admin: 03/05/25 09:17 Dose: 2.5 mg Documented By: RAJINDER Dextrose (Dextrose 50%-Water Inj 50 Ml Syringe) 25 ml IV Q15MIN PRN PRN Reason: BG 50-70 responsive npo pt Stop: 04/03/25 19:18 Dextrose (Dextrose 50%-Water Inj 50 Ml Syringe) 50 ml IV Q15MIN PRN PRN Reason: BG <50 OR BG <70 & pt unresponsive Stop: 04/03/25 19:18 Diltiazem HCl (Diltiazem Cd 180 Mg Capcr) 180 mg PO QDAY JENIFFER Stop: 04/04/25 08:59 Last Admin: 03/06/25 08:34 Dose: 180 mg Documented By: Admin: 03/05/25 09:16 Dose: 180 mg Documented By: RAJINDER Furosemide (Furosemide Inj 10 Mg/Ml 4ml Vial) 40 mg IVP QDAY JENIFFER Stop: 04/04/25 08:59 Last Admin: 03/06/25 08:39 Dose: 40 mg Documented By: Admin: 03/05/25 09:17 Dose: 40 mg Documented By: RAJINDER Glucagon (Glucagon Inj 1 Mg Vial) 1 mg IM Q15MIN PRN PRN Reason: BG <70, and no IV access Magnesium Sulfate (Magnesium Sulfate Ivpb) 4 gm in 50 mls @ 12.5 mls/hr IV X1 ONE Stop: 03/04/25 23:19 Last Admin: 03/04/25 19:41 Dose: 12.5 mls/hr Documented By: IG Insulin Human Lispro (Insulin Lispro (Admelog) 1 Unit/0.01 Ml Unit) 0 unit SC AC JENIFFER; Protocol Stop: 04/04/25 07:29 Last Admin: 03/06/25 17:02 Dose: Not Given Documented By: TD Non-Admin Reason: Per Protocol Admin: 03/06/25 11:16 Dose: Not Given Documented By: TD Non-Admin Reason: Per Protocol Admin: 03/06/25 07:47 Dose: Not Given Documented By: TD Non-Admin Reason: Per Protocol Admin: 03/05/25 17:12 Dose: Not Given Documented By: RAJINDER Non-Admin Reason: Per Protocol Admin: 03/05/25 11:30 Dose: Not Given Documented By: RAJINDER Non-Admin Reason: Per Protocol Admin: 03/05/25 07:36 Dose: Not Given Documented By: RAJINDER Non-Admin Reason: Per Protocol Labetalol HCl (Labetalol Inj 5 Mg/Ml Vial 20 Ml) 10 mg IVP Q6H PRN PRN Reason: SBP > 160 Stop: 04/03/25 18:44 Lidocaine HCl (Lidocaine Inj Pf 1% 30 Ml Vial) Confirm Administered Dose 30 ml .ROUTE .STK-MED ONE Stop: 03/04/25 13:58 Last Admin: 03/04/25 16:56 Dose: Not Given Documented By: Non-Admin Reason: Other, see note Lisinopril (Lisinopril 2.5 Mg Tablet) 2.5 mg PO QDAY JENIFFER Stop: 04/04/25 08:59 Last Admin: 03/06/25 08:38 Dose: 2.5 mg Documented By: Admin: 03/05/25 09:17 Dose: 2.5 mg Documented By: RAJINDER Ondansetron HCl (Ondansetron Inj 2 Mg/Ml Inj 2 Ml) 4 mg IVP Q6H PRN; Protocol PRN Reason: NAUSEA OR VOMITING Stop: 04/03/25 18:08 Potassium Chloride (Potassium Chloride 20 Meq Tabcr) 40 meq PO X1 ONE Stop: 03/06/25 07:57 Last Admin: 03/06/25 08:34 Dose: 40 meq Documented By: TD Trazodone HCl (Trazodone Hcl 50 Mg Tablet) 50 mg PO HS JENIFFER Stop: 04/03/25 20:59 Last Admin: 03/05/25 20:50 Dose: 50 mg Documented By: Admin: 03/04/25 20:11 Dose: 50 mg Documented By: IG See above Consultations Consultation(s) initiated? (list below): Yes Consultation #1 (Physician, Specialty, Details): See MDM Diagnosis Chest Pain Differential Diagnosis: other (See MDM ) Most likely diagnosis given after review of the tests above:: Recurrent pleural effusion Admission Indicated Admission indicated?: indicated Admission Request Was there a request for admission?: Yes Admission Attestation Admission request attestation: Discussed case with Hospitalist service regarding admission. Discussed patients ED course, exam findings, labs, and radiology results. The Hospitalist [agrees] to accept the patient for admission. Disposition Plan Disposition Plan: Admit Critical Care Time Critical Care Time Critical Care Time: Yes Total Critical Care Time (min.): 35 Attestation: Total critical care time: Approximately?36?minutes Due to a high probability of clinically significant, life threatening deterioration, the patient required my highest level of preparedness to intervene emergently and I personally spent this critical care time directly and personally managing the patient. This critical care time included obtaining a history; examining the patient; pulse oximetry; ordering and review of studies; arranging urgent treatment with development of a management plan; evaluation of patient's response to treatment; frequent reassessment; and, discussions with other providers. This critical care time was performed to assess and manage the high probability of imminent, life-threatening deterioration that could result in multi-organ failure. It was exclusive of separately billable procedures and treating other patients and teaching time. Please see MDM section and the rest of the note for further information on patient assessment and treatment. Discharge Plan Plan Patient Disposition: Admit Acute Care w/in Hospital Patient condition on transfer: Stable Problem List Clinical Impression: Recurrent pleural effusion
--- NOTE | 2025-03-04 13:18 | XR_ITS ---
Examination: Ultrasound-guided right thoracentesis Ultrasound right hemithorax Ultrasound left hemithorax Date and time: January 01, 2025, 1411 hours INDICATIONS: Shortness of breath this week, large right pleural effusion on chest x-ray today TECHNIQUE AND FINDINGS: Ernie scale sonographic images right and left hemithoraces, significant right pleural effusion Small left pleural effusion Informed consent provided. Timeout performed. Skin prepped over the right hemithorax and sterile drape applied hand hygiene ultrasound sterile technique 1% lidocaine administered for local anesthesia Utilizing ultrasonographic guidance 5 Sudanese catheter placed in the right pleural space 950 cc pleural fluid removed IMPRESSION: Successful ultrasound-guided right thoracentesis, 950 cc pleural fluid removed Estimated blood loss 0 cc
[2025-03-04 14:20] LABS: Basophils # (Auto) 0.0 Thou/mm3 (0.0-0.2); Basophils % (Auto) 1 % (0-2.5); Eosinophils # (Auto) 0.0 Thou/mm3 (0.0-0.5); Eosinophils % (Auto) 1 % (0-10); Hematocrit 39.9 % (36.0-46.0); Hemoglobin 13.1 g/dL (12.0-16.0); Immature Granulocytes Auto 0.02 Thou/mm3 (0.00-0.00); Lymphocytes # (Auto) 1.0 Thou/mm3 (1.0-4.8); Lymphocytes % (Auto) 21 % (10-50); Mean Corpuscular HGB Conc 32.8 g/dl (31.0-37.0); Mean Corpuscular Hemoglobin 29.2 pg (25.0-35.0); Mean Corpuscular Volume 89 fL (80-100); Monocytes # (Auto) 0.4 Thou/mm3 (0.0-0.8); Monocytes % (Auto) 9 % (0-12); Neutrophils # (Auto) 3.2 Thou/mm3 (1.8-7.7); Neutrophils % (Auto) 69 % (37-80); Nucleated Red Blood Cell # 0.00 Thou/mm3 (0.00-0.00); Nucleated Red Blood Cell % 0 /100 WBC (0); Platelet Count 202 Thou/mm3 (140-440); RDW Standard Deviation 53.1 fL (36.4-46.3); Red Blood Count 4.49 Miln/mm3 (4.00-5.20); White Blood Count 4.7 Thou/mm3 (3.6-11.0)
--- NOTE | 2025-03-04 14:31 | XR_ITS ---
Summation: PA chest single view TECHNIQUE: Upright PA chest single view Date and time: March 04, 2025, 1446 hours INDICATIONS: Post right thoracentesis IMPRESSION: No pneumothorax post right thoracentesis No significant right pleural fluid Normal heart size IMPRESSION: No pneumothorax post thoracentesis
[2025-03-04 14:33] LABS: B-Type Natriuretic Peptide 206 pg/mL (0-100)
[2025-03-04 14:34] LABS: INR 1.1 (0.9-1.3); Partial Thromboplastin Time 25.6 Seconds (22.0-36.0); Prothrombin Time 12.3 Seconds (9.0-12.2)
[2025-03-04 14:53] LABS: Alanine Aminotransferase 7 U/L (10-49); Albumin, Serum 4.3 gm/dL (3.4-4.8); Albumin/Globulin Ratio 1.7 (1.2-2.2); Alkaline Phosphatase 62 U/L (46-116); Anion Gap 11 (7-16); Aspartate Amino Transferase 17 U/L (0-34); BUN/Creatinine Ratio 14 Ratio (12-20); Bilirubin,Total 0.4 mg/dL (0.3-1.2); Blood Urea Nitrogen 7 mg/dL (9-23); Calcium 9.6 mg/dL (8.3-10.6); Calcium (Corrected) 9.6 mg/dL (8.5-10.1); Carbon Dioxide 29.7 mMol/L (20.0-31.0); Chloride 102 mMol/L (98-107); Creatinine (Component) 0.5 mg/dL (0.6-1.3); Estimated Creatinine Clearance 65.4 mL/min (>60); Globulin 2.5 gm/dL (2.3-3.5); Glucose 84 mg/dL (74-106); Magnesium 1.2 mg/dL (1.6-2.6); Osmolality,Calculated 281 (275-295); Potassium 4.3 mMol/L (3.4-5.1); Sodium 143 mMol/L (136-145); Total Protein 6.8 gm/dL (5.7-8.2); Troponin I < 0.020 ng/mL (0.0-0.045); eGFR > 60 See Note
[2025-03-04 16:28] VITALS: BP 167/94; PULSE 97; RESP 16; TEMP 36.9; O2SAT 97
[2025-03-04 16:50] LABS: LDH (Lactate Dehydrogenase) 190 U/L (120-246)
[2025-03-04 17:13] LABS: Pleural Fluid WBC 675 /cmm
--- NOTE | 2025-03-04 17:15 | ESHP_ITS ---
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 CXR showed moderate right-sided pleural effusion and underwent ultrasound-guided thoracentesis that removed 950 cc of pleural fluid without complications. Of note, patient has had multiple thoracentesis's starting in November of this year and son has noticed an approximately 40 pound weight loss since that time. Pleural fluid studies sent for studies and cytology and will follow-up on results. ----- Note reviewed and agree with care plan as documented. Please refer to the note below for further details. Plan discussed with attending physician Dr. Kaylee Song MD PGY-2 Internal Medicine Documentation for date of: 03/04/25 HPI History of Present Illness Chief complaint: Recurrent Pleural Effusion History of present illness: Marcia Domínguez is an 84 yo F w/ PMH CHF, recurrent pleural effusions s/p thoracenteses x4 who presented to [facility] ED today w/ complaint of Chest pain + SOB. She had been visiting her Glove Machine Operator Dr. Lopez where she reported SOB and was instructed to come to ED. She presented with her son who helped provide history. She reports 7/10 chest pain intermittently x1 month, associated with cough, SOB, and 20lb weight loss in the last 4 weeks. Per son she has received x3 thoracenteses in the last month and each time greatly improving symptomatically. Otherwise she denies fevers, chills, sweats, n/v/d, constipation, abdominal pain. Admitted for observation d/t chest pain. Of note, pt's son shared that patient has in the past received a 'shock procedure' due to 'high heart rate', possibly SVT requiring cardioversion. In ED today pt received a fourth thoracentesis which drained 950 cc pleural fluid, sent for cytology. Per pt's son about a liter is drained at each previous thoracentesis. PCP Dr. Lu Glove [employer] Dr. John Villarreal PMH: T2DM, CHF, HTN PSH: None FH: None SH: Never smoker, never drinks, lives in home with family, ambulatory at baseline w/ FWW for comfort Meds: Rosuvastatin 5mg, Losartan 50mg, Metformin 500mg, Furosemide 20mg, Lisinopril 2.5mg, Trazadone 50mg, Cardizem 180mg, pending medication reconciliation Allergies: NKDA ROS negative except as noted above. Exam Vital Signs Temp Pulse Resp BP Pulse Ox O2 Del Method 98.5 F 97 16 167/94 H 97 Room Air 03/04/25 16:28 03/04/25 16:28 03/04/25 16:28 03/04/25 16:28 03/04/25 16:28 03/04/25 16:28 Narrative Exam General: AOx3, no acute distress, able to speak full sentences HEENT: NC/AT, mucous membranes moist, bilateral sclera anicteric Cardiovascular: irregular rate and rhythm, S1/S2 present, no murmurs appreciated Pulmonary: clear to auscultation bilaterally, no rales/rhonchi/wheezes Abdominal: soft, non-tender, non-distended, no rebound/guarding, normal bowel sounds present Musculoskeletal: normal ROM Skin: warm and dry, intact, no rashes Neuro: CN II-XII intact, no focal deficits Results: Labs 03/06/25 05:12 03/06/25 05:12 Labs: Short CBC 03/04/25 Range/Units 14:05 WBC 4.7 (3.6-11.0) Thou/mm3 Hgb 13.1 (12.0-16.0) g/dL Hct 39.9 (36.0-46.0) % Plt Count 202 D (140-440) Thou/mm3 BMP 03/04/25 14:05 Sodium 143 Potassium 4.3 Chloride 102 Carbon Dioxide 29.7 BUN 7 L Creatinine 0.5 L Glucose 84 Calcium 9.6 Cardiac Enzymes 03/04/25 Range/Units 14:05 Troponin I < 0.020 (0.0-0.045) ng/mL Liver Function 03/04/25 Range/Units 14:05 Total Bilirubin 0.4 (0.3-1.2) mg/dL AST 17 (0-34) U/L ALT 7 L (10-49) U/L Alkaline Phosphatase 62 (46-116) U/L Albumin 4.3 (3.4-4.8) gm/dL Quality Measures Quality Measures none Advance care planning discussed with:: patient Medications Home Medications and Allergies Home Medications ?Medication ?Instructions ?Recorded ?Confirmed ?Type metformin 500 mg tablet 1,000 mg PO .wmeals 10/10/21 03/04/25 History rosuvastatin 5 mg tablet 5 mg PO QPM 11/18/23 5 History albuterol sulfate 90 mcg/actuation 1 inh inhalation Q4 H 03/04/25 03/04/25 History aerosol inhaler diltiazem HCl 180 mg 180 mg PO Q24H 03/04/2502/09 History tablet,extended release 24 hr (Matzim LA) furosemide 40 mg tablet (Lasix) 20 mg PO QDAY 03/04/25 03/04/25 History losartan 50 mg tablet 50 mg PO QDAY 03/04/2503/04 History trazodone 50 mg tablet 50 mg PO HS 03/04/25 5 History Allergies Allergy/AdvReac Type Severity Reaction Status Date / Time No Known Allergies Allergy Verified 03/04/25 11:57 Assessment & Plan Plan 84-year-old female with a past medical history of CHF, atrial fibrillation on Eliquis, hypertension, type 2 diabetes mellitus, hyperlipidemia, and recurrent pleural effusions who is being observed overnight s/p thoracentesis. #Chest Pain w/ Hypertensive Urgency #Recurrent Pleural Effusion #CHF, possibly HFpEF that has decompensated Relatively hemodynamically stable, hypertensive urgency this admit to 150s-180s w/o evidence of end-organ damage per admission labs. Pt presents w/ x1 month chest pain and recurrent effusions requiring to date x4 thoracenteses. Latest Echo 11/18/23 showed normal LVEF. Given recurrent effusions as well as 20lb weight loss over the last month very concerning for decompensation of CHF. EKG in ED revealed AFIB. Tentatively NYHA Class III pending further workup. Will calculate ASCVD risk once lipid panel is complete. Pt is s/p thoracentesis in ED today which drained 950cc fluid. -Admit to observation -Order latest Echo to characterize possible decompensation of HF -Will consult Cardiology Dr. Lopez, will resume home BP and CHF meds per recs in AM -Order Lipid Panel and A1c -Trend CMP in AM -Pleural fluid sent out for cytology, pending results -PRN IV Labetalol 10mg #AFIB Chronic per pt, following cardiology. At home has rate control w/ diltiazem 180mg POqD. Currently in AFIB per ED EKG. -Diltiazem 100 mg p.o. daily -Apixaban 2.5 mg p.o. twice daily -Trend EKG in AM -Pending Cardiology recs as above to continue meds as inpatient. #Hyperlipidemia Chronic -Lipid panel as above -Will consider resuming home statin in AM #Type 2 diabetes mellitus -SSI -Follow-up A1c Hospital management: Disposition: Pending pleural fluid studies Diet: Cardiac Lines: PIV DVT prophylaxis: Eliquis CODE STATUS: DNR ----- Note reviewed and agree with care plan as documented. Please refer to the note below for further details. Plan discussed with attending physician Dr. Kaylee Burgess Medical student Attending Provider Attestation/Addendum I attest that I was physically present for the evaluation, physical examination, lab and imaging review of the patient with the residents. I discussed the case with the residents and agree with the findings and plans of care as documented above. After examination of the patient and review of the clinical data I feel that this patient needs observation in the hospital for further treatment/evaluation. Old female with past medical history of CHF, recurrent pleural effusions status post thoracocentesis x 4 who presented to the ED with complaint of chest pain and shortness of breath. Patient went to her applications project manager office today for shortness of breath, was recommended to visit the ED. Patient has been having intermittent chest pain for about a month, she also has cough, shortness of breath and weight loss, nearly 20 pounds in the last 4-week. Patient has been having repeated thoracentesis with relief for her symptoms after. Denies any fever, chills, night sweats, palpitations, nausea, vomiting. Patient underwent another thoracentesis in the ED, 950 cc of pleural fluid was drained from right side. In the ED, patient states she feels better after the thoracentesis but was still slightly tachypneic, lungs sounds were clear to auscultate bilaterally. Since patient is having recurrent pleural effusion, this being her fifth time, had chest pain and tachypnea, we will admit her on observation for further evaluation and treatment. We will obtain echocardiography and cardiology consult. Pleural fluid sent for studies including cytology, Gram stain and culture. We will continue with diltiazem and apixaban for her A-fib. Started on insulin regimen for diabetes mellitus. Shiv Page MD
[2025-03-04 17:16] LABS: Pleural Fluid Appearance Hazy; Pleural Fluid Color Straw; Pleural Fluid Mononuclear 98 %; Pleural Fluid Polynuclear 2 %; Pleural Fluid RBC 3000 /cmm
[2025-03-04 17:29] LABS: Amylase,Pleural Fluid 82 IU/L; Glucose,Pleural Fluid 96 mg/dL; LDH,Pleural Fluid 76 IU/L; Protein Total,Pleural Fluid 4.0 g/dL
[2025-03-04 17:30] VITALS: BP 185/98; PULSE 94; RESP 16; TEMP 36.3; O2SAT 96
[2025-03-04 17:33] VITALS: PULSE 93
--- NOTE | 2025-03-04 17:45 | PC.NURSE ---
ATTEMPTED TO CALL REPORT, RN UNAVAILABLE AT THIS TIME. RN STATES SHE WILL CALL BACK FOR REPORT.
--- NOTE | 2025-03-04 17:45 | PC.NURSE ---
IN TO ASSESS PT. PT RESTING QUIETLY AT THIS TIME WITHOUT ANY COMPLAINTS. STATES SHE CAME IN TODAY WITH C/O CHEST PAIN AND SOB BUT SYMPTOMS NOW RESOLVED SP THORACENTESIS. SON AT BEDSIDE, CALL LIGHT PLACED WITHIN REACH. PLAN TO ADMIT.
[2025-03-04 17:49] LABS: pH,Body Fluid 7.5
[2025-03-04 17:50] LABS: Specific Gravity, Body Fluid 1.020
--- NOTE | 2025-03-04 18:23 | ECHO_ITS ---
Transthoracic Echo Report Ht (in): 63 Wt (lb): 113 Exam Location: [facility] Status: Inpatient Health Care Analyst: Valerie Rodriguez Indications: Procedure Performed: BP: 127 / 72 HR: 92 MEASUREMENTS (Male / Female) Normal Values 2D ECHO LV Diastolic Diameter PLAX 4.2 cm 4.2 - 5.9 / 3.9 - 5.3 cm LV Systolic Diameter PLAX 2.4 cm IVS Diastolic Thickness 0.9 cm 0.6 - 1.0 / 0.6 - 0.9 cm LVPW Diastolic Thickness 0.8 cm 0.6 - 1.0 / 0.6 - 0.9 cm LV Relative Wall Thickness 0.4 LVOT Diameter 1.8 cm LA Volume Index 72.1 cm?/m? 16 - 28 cm?/m? Ascending Aorta Diameter 2.6 cm M-MODE AV Cusp Separation MM 1.3 cm DOPPLER AV Peak Velocity 147.0 cm/s AV Peak Gradient 8.6 mmHg AV Mean Gradient 6.0 mmHg AV Velocity Time Integral 26.4 cm LVOT Peak Velocity 102.0 cm/s LVOT Peak Gradient 4.2 mmHg LVOT Velocity Time Integral 21.5 cm LVOT Cardiac Index 3339.3 cm?/min?m? AV Area Cont Eq vti 2.1 cm? AV Area Cont Eq pk 1.8 cm? MV Area PHT 4.3 cm? Mitral E Point Velocity 96.0 cm/s TR Peak Velocity 230.3 cm/s TR Peak Gradient 21.2 mmHg PV Peak Velocity 78.7 cm/s PV Peak Gradient 2.5 mmHg FINDINGS Left Ventricle Normal left ventricular size, systolic function with no obvious regional wall motion abnormalities. Mild LVH. There is grade II diastolic dysfunction of the left ventricle (pseudonormal filling pattern). The ejection fraction is visually estimated at __ %. Right Ventricle The right ventricle is normal in size and systolic function. The estimated right ventricular systolic pressure, 27 mmHg. Left Atrium The left atrial cavity size is severely increased. Right Atrium The right atrial cavity size is severely increased. Atrial Septum The interatrial septum appears normal with no evidence of a shunt. Aorta The aorta is normal by two-dimensional, color flow and Doppler interrogation. Mitral Valve Moderate mitral annular calcification. Mild thickening of the mitral valve leaflets. Stza-rc-orxmsneq mitral regurgitation. Aortic Valve Aortic valve sclerosis without stenosis Tricuspid Valve The tricuspid valve is normal by two-dimensional, color flow and Doppler interrogation.there is mild to moderate tricuspid valve regurgitation. Pulmonic Valve The pulmonic valve is not well visualized. Trivial pulmonic valve regurgitation. Vessels The pulmonary artery appears normal. The inferior vena cava pulmonary and hepatic veins appear normal. Pericardium The pericardium is normal by two-dimensional imaging. There is no significant pericardial effusion. Other Findings small lateral and posterior pericardial effusion. Without evidence of cardiac tamponade. CONCLUSIONS Indication: CHF Normal left ventricular size and function. Mild LVH. Estimated EF 60-65% Diastolic dysfunction could not be estimated because of the severe MAC Mild RV dilatation. Normal RV function. Mildly elevated RVSP around 30 mmHg. Massively dilated left atrium and severely dilated right atrium. Severe posterior MAC with limited mobility of the posterior mitral valve. Mild thickening and caclcification of mitral valeve. Mild MR Moderate TR and trace DE. Trace pericardial effusion without evidence of cardiac tamponade. Reg Lopez (Electronically Signed) Final Date: 06 March 2025 23:04
[2025-03-04 18:45] VITALS: PULSE 93; PULSE 99; RESP 20; RESP 99
[2025-03-04] MEDS: Magnesium Sulfate 4 GM Ivpb 4 GM/50 ML BAG IV (19:41)
[2025-03-04 20:00] VITALS: BP 169/93; PULSE 100; PULSE 88; RESP 20; TEMP 36.4; O2SAT 98
[2025-03-05] VITALS (12 sets, daily range): BP systolic 119–168; BP diastolic 62–98; PULSE 68–105; RESP 20–95; TEMP 36.2–36.4; O2SAT 96
[2025-03-05 06:06] LABS: Basophils # (Auto) 0.0 Thou/mm3 (0.0-0.2); Basophils % (Auto) 1 % (0-2.5); Eosinophils # (Auto) 0.1 Thou/mm3 (0.0-0.5); Eosinophils % (Auto) 1 % (0-10); Hematocrit 38.4 % (36.0-46.0); Hemoglobin 12.5 g/dL (12.0-16.0); Immature Granulocytes Auto 0.01 Thou/mm3 (0.00-0.00); Lymphocytes # (Auto) 1.0 Thou/mm3 (1.0-4.8); Lymphocytes % (Auto) 21 % (10-50); Mean Corpuscular HGB Conc 32.6 g/dl (31.0-37.0); Mean Corpuscular Hemoglobin 28.3 pg (25.0-35.0); Mean Corpuscular Volume 87 fL (80-100); Monocytes # (Auto) 0.5 Thou/mm3 (0.0-0.8); Monocytes % (Auto) 9 % (0-12); Neutrophils # (Auto) 3.3 Thou/mm3 (1.8-7.7); Neutrophils % (Auto) 68 % (37-80); Nucleated Red Blood Cell # 0.00 Thou/mm3 (0.00-0.00); Nucleated Red Blood Cell % 0 /100 WBC (0); Platelet Count 237 Thou/mm3 (140-440); RDW Standard Deviation 51.6 fL (36.4-46.3); Red Blood Count 4.42 Miln/mm3 (4.00-5.20); White Blood Count 4.9 Thou/mm3 (3.6-11.0)
[2025-03-05 06:36] LABS: Glucose Estimated Average 108 mg/dL (80-131); Hemoglobin A1C 5.4 % Hgb (4.8-6.0)
[2025-03-05 06:42] LABS: Alanine Aminotransferase < 7 U/L (10-49); Albumin, Serum 3.7 gm/dL (3.4-4.8); Albumin/Globulin Ratio 1.8 (1.2-2.2); Alkaline Phosphatase 55 U/L (46-116); Anion Gap 11 (7-16); Aspartate Amino Transferase 13 U/L (0-34); BUN/Creatinine Ratio 18 Ratio (12-20); Bilirubin,Total 0.5 mg/dL (0.3-1.2); Blood Urea Nitrogen 9 mg/dL (9-23); Calcium 9.3 mg/dL (8.3-10.6); Calcium (Corrected) 9.5 mg/dL (8.5-10.1); Carbon Dioxide 30.4 mMol/L (20.0-31.0); Cardiac Risk Estimate 2.5 RATIO (3.7-5.6); Chloride 103 mMol/L (98-107); Cholesterol 137 mg/dL (132-200); Creatinine (Component) 0.5 mg/dL (0.6-1.3); Estimated Creatinine Clearance 7.5 mL/min (>60); Globulin 2.1 gm/dL (2.3-3.5); Glucose 76 mg/dL (74-106); HDL Cholesterol 54 mg/dL (40-60); LDL Cholesterol,Calculated 70 mg/dL (0-130); Magnesium 1.8 mg/dL (1.6-2.6); Osmolality,Calculated 284 (275-295); Potassium 3.8 mMol/L (3.4-5.1); Sodium 144 mMol/L (136-145); Total Protein 5.8 gm/dL (5.7-8.2); Triglycerides 64 mg/dL (30-150); eGFR > 60 See Note
--- NOTE | 2025-03-05 07:00 | EKG_ITS ---
[facility] Test Date: 2025-03-05 Pat Name: ARMEN RIVERA Department: Room: [place] [address] Gender: Female Master [employer]: JOSEE : 1940 Requested By: Surya Burgess Order Number: [id number] Reading MD: Surya Burgess Measurements Intervals Vendor Rate: 78 P: [place]: QRS: 21 QRSD: 98 T: 31 QT: 398 QTc: 454 Interpretive Statements ATRIAL FIBRILLATION ABNORMAL RHYTHM ECG Compared to ECG 03/04/2025 13:04:45 No significant changes /store/S0/[id number].pdf
[2025-03-05 09:01] LABS: Sed Rate (ESR) 5 mm/hr (0-30)
[2025-03-05 09:12] LABS: C-Reactive Protein < 0.5 mg/dL (0.0-0.9); Free T4 (Free Thyroxine) 1.25 ng/dL (0.89-1.76); Thyroid Stimulating Hormone 2.49 uIU/mL (0.55-4.78)
[2025-03-05] MEDS: DILTIAZEM CD 180 MG CAPCR PO (09:16)
[2025-03-05] MEDS: FUROSEMIDE INJ 10 MG/ML 4ML VIAL 40 MG IVP (09:17)
[2025-03-05] MEDS: APIXABAN 2.5 MG TABLET PO ×2 (09:17→20:49)
--- NOTE | 2025-03-05 09:23 | PD.RESDS ---
Planned Discharge Date 03/05/25 DS: Providers Provider Date of admission: 03/05/25 08:52 Primary care physician: Derek Sahu PA-C Admitting Provider: Shiv Page MD Attending Provider on Admission: Shiv Page MD Consults: 03/04/25 18:30 Consult to Cardiology Routine Comment: Consulting Provider: Reg Lopez Attending Provider on DC: Keily Ravi Discharging Provider: Keily Ravi DS: Diagnosis Problem List Completed Was Problem List Reviewed/Reconciled?: Yes Hospital Course Hospital Course Hospital course: Marcia Domínguez is an 84 yo F w/ PMH CHF, recurrent pleural effusions s/p thoracenteses x4 HTN, AFIB on Eliquis, HLD who presented to [facility] ED w/ complaint of Chest pain + SOB. She had been visiting her [employer] Loom Dr. Lopez where she reported SOB and was instructed to come to ED. She presented with her son who helped provide history. She reports 7/10 chest pain intermittently x1 month, associated with cough, SOB, and 40lb weight loss in the last 3 months. She has received x3 thoracenteses since November this year and each time greatly improved symptomatically. In the ED she received a fourth thoracentesis that drained 950cc pleural fluid which was sent for analysis and culture. EKG showed AFIB. She was admitted overnight for observation. Regarding AFIB, she was tachycardic this admission. This as well as SOB on admit were concerning for symptomatic AFIB, however per Cardiology she is safe for discharge. Regarding recurrent effusions, pleural fluid drained this encounter was positive for exudative effusion, cytology pending. Regarding 3 month history of 40lb weight loss, per chart review CT Chest/Ab/Pelvis 01/12/25 showed 3mm pulmonary nodule of LLL and 35mm uterine body mass. Subsequent pelvic US showed 23 x 17 x 26 mm uterine body area of fibroid degeneration. On discharge she is hemodynamically stable, without SOB, ambulatory. She has instructions to follow-up with outpt [employer] regarding uterine mass as well as outpt PCP regarding cytology results, follow-up CT Chest/Ab/Pelvis 6 months after previous. Diagnoses during admission: #Hypertensive urgency #Recurrent pleural effusion #AFIB #Hyperlipidemia #Type 2 diabetes mellitus Discharge instructions: ? Continue taking all other home medications as prescribed ? Follow-up with your industrial maintenance electrician, Dr. Lopez, within 1-2 weeks of discharge ? Follow-up with PCP within 1-2 weeks of discharge for cytology results from your thoracentesis ? If you do not have a PCP, you can follow-up at the [facility] (you can call [phone] to make an appointment) ? Return to ED if symptoms worsen or recur ----- Plan discussed with attending physician Dr. Kaylee Burgess, Medical Student OMSIMaddi Time Spent with Patient Time attestation: Total time spent providing and/or coordinating discharge services: 35 min Time spent: Greater than 30 minutes Exam Vital Signs Temp Pulse Resp BP Pulse Ox O2 Del Method 97.1 F 90 26 H 154/98 H 96 Room Air 03/05/25 08:00 03/05/25 09:17 03/05/25 08:00 03/05/25 09:17 03/05/25 08:00 03/05/25 08:00 Narrative Exam General: AOx3, no acute distress, able to speak full sentences HEENT: NC/AT, mucous membranes moist, bilateral sclera anicteric Cardiovascular: irregular rate and rhythm, S1/S2 present, no murmurs appreciated Pulmonary: clear to auscultation bilaterally, no rales/rhonchi/wheezes Abdominal: soft, non-tender, non-distended, no rebound/guarding, normal bowel sounds present Musculoskeletal: normal ROM Skin: warm and dry, intact, no rashes Neuro: CN II-XII intact, no focal deficits Discharge Plan Plan Patient Disposition: HOME (Self Care) Patient condition on transfer: Stable Care Plan Goals: - Continue taking your home medications as prescribed. - Follow-up with your industrial maintenance electrician, Dr. Lopez, within 1-2 weeks of discharge. - Follow-up with PCP within 1-2 weeks of discharge for cytology results from your thoracentesis. - Pleural studies completed. Advisable to follow up on CEA and AFP levels. - Recommend outpatient Pulmonology referral for further evaluation of recurrent pleural effusions. - If you do not have a PCP, you can follow-up at the [facility] (you can call [phone] to make an appointment) - Return to ED if symptoms worsen or recur. Prescriptions/Referrals Prescriptions/Med Rec: Continued metformin 500 mg Tablet 1,000 mg PO .wmeals rosuvastatin 5 mg Tablet 5 mg PO QPM Rx Instructions: TAKE WITH DINNER Eliquis 5 mg tablet 5 mg PO BID 30 Days Qty: 60 3RF trazodone 50 mg tablet 50 mg PO HS Patient Comments: TAKE 1 TABLET BY MOUTH AT BEDTIME diltiazem HCl [Matzim LA] 180 mg tablet extended release 24 hr 180 mg PO Q24H Patient Comments: TAKE 1 TABLET BY MOUTH EVERY DAY FOR 90 DAYS losartan 50 mg tablet 50 mg PO QDAY Patient Comments: TAKE 1 TABLET BY MOUTH EVERY DAY albuterol sulfate 90 mcg/actuation HFA aerosol inhaler 1 inh inhalation Q4H furosemide [Lasix] 40 mg tablet 20 mg PO QDAY Discontinued lisinopril 2.5 mg tablet 2.5 mg PO QDAY Qty: 30 0RF Referrals: Derek Sahu PA-C [Primary Care Provider] Patient/Caregiver Discharge Instructions Education Materials: Pleural Effusion, Thoracentesis Dc, Your Heart's Electrical System, Low-Salt Choices Print Language: Croatian Stand Alone Forms: Amy Award Info., Patient Portal Info Letter Discharge Order Discharge Orders: Discharge (Routine); Ordered 03/06/25 Ordered By: Carlos A Sánchez Quality Discharge Quality Measures VTE prophylaxis Attestestation Attestation I attest that I was physically present for the evaluation, physical examination, lab and imaging review of the patient with the residents. I discussed the case with the residents and agree with the findings and plans of care as documented above. Shiv Page MD
--- NOTE | 2025-03-05 09:35 | PD.RESCONSUL ---
HPI Data of Consult Requesting Physician: Shiv Page MD Admitting Provider: Shiv Page MD Attending Provider: Shiv Page MD Primary Care Provider: Derek Sahu PA-C Consult Narrative Reason for consult: Paroxysmal A-fib, chest History of present illness: HPI:An 84-year-old female patient with past medical history of hypertension, type 2 diabetes mellitus, CHF, hyperlipidemia, recurrent pleural effusion paroxysmal A-fib on Eliquis, was referred from our office after the patient was noticed to be short of breath and mild chest pain. Patient reported that she has some episodes of cough and shortness of breath. Her son reported that she had significant weight loss over the past few months unintentionally. He also reported that the patient has multiple episodes of fluid retention in her lungs and she go for recurrent pleurocentesis. Patient denied any palpitation, dizziness, lower extremity swelling, orthopnea or paroxysmal nocturnal dyspnea On review of the patient's chart patient has multiple visits to the ED for thoracentesis, previous pleural fluid analysis was positive for exudate based on the lights criteria. Patient was also noticed to have cytology report was done in November 2024 for the pleural fluid and it was only positive for inflammatory cells was negative for any malignant cells. Patient was admitted for thoracentesis and also for recurrent pleural effusion workup and observation Home medications:Eliquis, diltiazem, Lasix, lisinopril, losartan, metformin, rosuvastatin, trazodone PMH: As above PSX: Multiple pleurocentesis Social hx: Alcohol: Denied Tobacco: Denied Illicit drugs: Denied Allergies: No known allergies cc:: cc: Shiv Page MD Review of Systems Review of Systems Systems Reviewed: All systems reviewed, normal except as documented Exam Vital Signs Temp Pulse Resp BP Pulse Ox O2 Del Method 97.1 F 90 26 H 154/98 H 96 Room Air 03/05/25 08:00 03/05/25 09:17 03/05/25 08:00 03/05/25 09:17 03/05/25 08:00 03/05/25 08:00 Narrative Exam GEN: AOx3, cachectic, Albanian speaker, lying in bed comfortably, able to speak full sentences HEENT: NC/AC, PERRLA, oral mucosa moist, neck supple CVS: RRR, S1-S2 present, no murmurs appreciated RESP: No crepitus, good air entry bilaterally GI: soft,non distended, non tender, NBS MSK: able to move all 4 limbs, no lower extremity edema SKIN: warm and dry TV PRODUCTION ASSISTANT: CN II-XII and Sensation grossly intact. Results Labs 03/06/25 05:12 03/06/25 05:12 Labs: Short CBC 03/04/25 03/05/25 Range/Units 14:05 05:30 WBC 4.7 4.9 (3.6-11.0) Thou/mm3 Hgb 13.1 12.5 (12.0-16.0) g/dL Hct 39.9 38.4 (36.0-46.0) % Plt Count 202 D 237 D (140-440) Thou/mm3 BMP 03/04/25 03/05/25 14:05 05:30 Sodium 143 144 Potassium 4.3 3.8 D Chloride 102 103 Carbon Dioxide 29.7 30.4 BUN 7 L 9 Creatinine 0.5 L 0.5 L Glucose 84 76 Calcium 9.6 9.3 Cardiac Enzymes 03/04/25 Range/Units 14:05 Troponin I < 0.020 (0.0-0.045) ng/mL Liver Function 03/04/25 03/05/25 Range/Units 14:05 05:30 Total Bilirubin 0.4 0.5 (0.3-1.2) mg/dL AST 17 13 (0-34) U/L ALT 7 L < 7 L (10-49) U/L Alkaline Phosphatase 62 55 (46-116) U/L Albumin 4.3 3.7 D (3.4-4.8) gm/dL Quality Measures Quality Measures none Advance care planning discussed with:: patient Medications Home Medications and Allergies Home Medications ?Medication ?Instructions ?Recorded ?Confirmed ?Type metformin 500 mg tablet 1,000 mg PO .wmeals 10/10/21 03/04/25 History rosuvastatin 5 mg tablet 5 mg PO QPM 11/18/23 03/04/25 History albuterol sulfate 90 mcg/actuation 1 inh inhalation Q4H 03/04/25 03/04/25 History aerosol inhaler diltiazem HCl 180 mg 180 mg PO Q24H 03/04/25 03/04/25 History tablet,extended release 24 hr ([facility] [place]) furosemide 40 mg tablet (Lasix) 20 mg PO QDAY 03/04/25 03/04/25 History losartan 50 mg tablet 50 mg PO QDAY 03/04/25 03/04/25 History trazodone 50 mg tablet 50 mg PO HS 03/04/25 03/04/25 History Allergies Allergy/AdvReac Type Severity Reaction Status Date / Time No Known Allergies Allergy Verified 03/04/25 11:57 Visit Medications Acetaminophen (Acetaminophen 500 Mg Tablet) 1,000 mg PO Q6H PRN PRN Reason: Fever >99.9 Stop: 04/03/25 18:03 Apixaban (Apixaban 2.5 Mg Tablet) 2.5 mg PO BID [facility] Stop: 04/04/25 08:59 Last Admin: 03/05/25 09:17 Dose: 2.5 mg Dextrose (Dextrose 50%-Water Inj 50 Ml Syringe) 25 ml IV Q15MIN PRN PRN Reason: BG 50-70 responsive npo pt Stop: 04/03/25 19:18 Dextrose (Dextrose 50%-Water Inj 50 Ml Syringe) 50 ml IV Q15MIN PRN PRN Reason: BG <50 OR BG <70 & pt unresponsive Stop: 04/03/25 19:18 Diltiazem HCl (Diltiazem Cd 180 Mg Capcr) 180 mg PO QDAY [facility] Stop: 04/04/25 08:59 Last Admin: 03/05/25 09:16 Dose: 180 mg Furosemide (Furosemide Inj 10 Mg/Ml 4ml Vial) 40 mg IVP QDAY [facility] Stop: 04/04/25 08:59 Last Admin: 03/05/25 09:17 Dose: 40 mg Glucagon (Glucagon Inj 1 Mg Vial) 1 mg IM Q15MIN PRN PRN Reason: BG <70, and no IV access Insulin Human Lispro (Insulin Lispro (Admelog) 1 Unit/0.01 Ml Unit) 0 unit SC [facility]; Protocol Stop: 04/04/25 07:29 Last Admin: 03/05/25 07:36 Dose: Not Given Labetalol HCl (Labetalol Inj 5 Mg/Ml Vial 20 Ml) 10 mg IVP Q6H PRN PRN Reason: SBP > 160 Stop: 04/03/25 18:44 Lisinopril (Lisinopril 2.5 Mg Tablet) 2.5 mg PO QDAY JENIFFER Stop: 04/04/25 08:59 Last Admin: 03/05/25 09:17 Dose: 2.5 mg Ondansetron HCl (Ondansetron Inj 2 Mg/Ml Inj 2 Ml) 4 mg IVP Q6H PRN; Protocol PRN Reason: NAUSEA OR VOMITING Stop: 04/03/25 18:08 Trazodone HCl (Trazodone Hcl 50 Mg Tablet) 50 mg PO HS JENIFFER Stop: 04/03/25 20:59 Last Admin: 03/04/25 20:11 Dose: 50 mg Discontinued Medications Acetaminophen (Acetaminophen 325 Mg Tablet) 1,000 mg PO Q6H PRN PRN Reason: Fever >99.9 Stop: 04/03/25 18:03 Magnesium Sulfate (Magnesium Sulfate Ivpb) 4 gm in 50 mls @ 12.5 mls/hr IV X1 ONE Stop: 03/04/25 23:19 Last Admin: 03/04/25 19:41 Dose: 12.5 mls/hr Assessment & Plan Plan An 84-year-old female patient with past medical history of hypertension, type 2 diabetes mellitus, CHF, hyperlipidemia, recurrent pleural effusion paroxysmal A-fib on Eliquis, was referred from our office after the patient was noticed to be short of breath and mild chest pain. Patient reported that she has some episodes of cough and shortness of breath. Cardiology was consulted for paroxysmal A-fib and chest pain #Chest pain #Persistent A-fib on Eliquis Patient is known case of paroxysmal A-fib on Eliquis and diltiazem. Still in A-fib however rate well-controlled. Patient reported mild to moderate chest pain. Increased with deep breath. Patient had Holter screening as an outpatient in November 2024 which showed 100% atrial fibrillation with average heart rate of 74, maximum heart rate 109 and minimum heart rate 51 with longest pause of 2.6 Patient had a nuclear stress test done in December 16, 2024 which showed normal myocardial perfusion study without evidence of any inducible ischemia her ejection fraction was 75% with normal wall motion. Troponin was negative, BNP was mildly elevated EKG showed only A-fib with rapid ventricular response, no ST changes. The reason we believe that her chest pain was likely of pleuritic chest pain noncardiac. Plan ? Echocardiogram was ordered, follow-up in the ? Continue the patient on Eliquis 2.5 mg p.o. daily ? Continue the patient on diltiazem 180 mg p.o. daily ? Follow-up with a kindergarten prep teacher as an outpatient ? Patient will need further workup for pleural effusion. #Pleural effusion, recurrent Bilateral however more on the right side most of the time. Patient has lost 12 kg for the past year unintentional According to lights criteria patient has positive exudate previous pleural fluid analysis was positive for exudate based on the lights criteria. Patient was also noticed to have cytology report was done in November 2024 for the pleural fluid and it was only positive for inflammatory cells was negative for any malignant cells. Plan ? Cocci, ESR, CRP, TSH, free T4, RERE screening, was ordered continue to follow-up #History of hypertension Patient was put on losartan #Diabetes mellitus Patient is on insulin sliding scale - Patient's plan and care discussed with my attending, Dr. John Perea MD Internal Medicine PGY-3 Attending Provider Attestation/Addendum I have personally seen and examined the patient separately on the above date of service and discussed the plan of care with the resident. I reviewed the resident Dr. Perea consultation progress note and agree with the resident findings and plan in the note above and have also edited the documentation to reflect my findings and plan. Reg Lopez M.D. Interventional Cardiology
[2025-03-05 09:58] LABS: C-Reactive Protein 0.8 mg/dL (0.0-0.9)
--- NOTE | 2025-03-05 10:50 | CHAP ---
Patient was visited by the Spiritual Care Volunteer who prayed for them. (Volunteer was in the hospital from C 9:30-10:50)
--- NOTE | 2025-03-05 11:23 | PD.HHPROG ---
Documentation for date of: 03/05/25 Subjective - Hospitalist Subjective Interval history: At bedside today patient appears comfortable and denies any new complaints. Denies chest pain, increased SOB. Lungs are clear to auscultate bilaterally but patient noted to be tachypneic. Pleural fluid studies suggestive of transudative fluid with high protein, WBC of 675 with mostly lymphocytes. This is patient's 5th thoracentesis in last 3 months. Awaiting pleural fluid gram stain, culture and cytology results. Review of Systems Review of Systems Systems Reviewed: All systems reviewed, normal except as documented Exam Vital Signs Temp Pulse Resp BP Pulse Ox O2 Del Method 97.6 F 68 20 119/62 96 Room Air 03/05/25 20:00 03/05/25 20:00 03/05/25 20:00 03/05/25 20:00 03/05/25 20:00 03/05/25 20:00 Narrative General: AOx3, no acute distress, able to speak full sentences HEENT: NC/AT, mucous membranes moist, bilateral sclera anicteric Cardiovascular: irregular rate and rhythm, S1/S2 present, no murmurs appreciated Pulmonary: clear to auscultation bilaterally, no rales/rhonchi/wheezes Abdominal: soft, non-tender, non-distended, no rebound/guarding, normal bowel sounds present Musculoskeletal: normal ROM Skin: warm and dry, intact, no rashes Neuro: CN II-XII intact, no focal deficits Objective - Hospitalist Labs Diagram: 03/05/25 05:30 03/05/25 05:30 Labs: Laboratory Results - last 24 hr 03/05/25 03/05/25 03/05/25 05:30 05:30 08:50 WBC 4.9 RBC 4.42 Hgb 12.5 Hct 38.4 MCV 87 MCH 28.3 MCHC 32.6 RDW Std Deviation 51.6 H Plt Count 237 D Neut % (Auto) 68 Lymph % (Auto) 21 [place] % (Auto) 9 Eos % (Auto) 1 Baso % (Auto) 1 Neut # (Auto) 3.3 Lymph # (Auto) 1.0 [place] # (Auto) 0.5 Eos # (Auto) 0.1 Baso # (Auto) 0.0 Immature Gran # (Auto) 0.01 H Absolute Nucleated RBC 0.00 Immature Gran % 0 Nucleated RBC % 0 ESR 5 Sodium 144 Potassium 3.8 D Chloride 103 Carbon Dioxide 30.4 Anion Gap 11 BUN 9 Creatinine 0.5 L Estim Creat Clear Calc 7.5 L eGFR > 60 BUN/Creatinine Ratio [address] Glu mg/dL 108 Hemoglobin A1c 5.4 Calculated Osmolality 284 Calcium 9.3 Corrected Calcium 9.5 Magnesium 1.8 Total Bilirubin 0.5 AST 13 ALT < 7 L Alkaline Phosphatase 55 C-Reactive Prot, Quant < 0.5 0.8 Total Protein 5.8 Albumin 3.7 D Globulin 2.1 L Albumin/Globulin Ratio 1.8 Triglycerides 64 Cholesterol 137 LDL Cholesterol, Calc 70 HDL Cholesterol 54 Cholesterol/HDL Ratio 2.5 L TSH 2.49 Free T4 1.25 Coccidioides IgM Ab Negative Assessment & Plan Plan: 84-year-old female with a past medical history of CHF, atrial fibrillation on Eliquis, hypertension, type 2 diabetes mellitus, hyperlipidemia, and recurrent pleural effusions who is being observed s/p thoracentesis. #Chest Pain w/ Hypertensive Urgency #Recurrent Pleural Effusion #CHF, possibly HFpEF that has decompensated Relatively hemodynamically stable, hypertensive urgency this admit to 150s-180s w/o evidence of end-organ damage per admission labs. Pt presents w/ x1 month chest pain and recurrent effusions requiring to date x4 thoracenteses. Latest Echo 11/18/23 showed normal LVEF. Given recurrent effusions as well as 20lb weight loss over the last month very concerning for decompensation of CHF. EKG in ED revealed AFIB. Tentatively NYHA Class III pending further workup. Will calculate ASCVD risk once lipid panel is complete. Pt is s/p thoracentesis in ED today which drained 950cc fluid. -Order latest Echo to characterize possible decompensation of HF -Cardiology following, resumed home BP and CHF meds per recs in AM -Pleural fluid sent out for cytology, pending results, pending RERE, Cocci serology -PRN IV Labetalol 10mg #AFIB Chronic per pt, following cardiology. At home has rate control w/ diltiazem 180mg POqD. Currently in AFIB per ED EKG. -Diltiazem 100 mg p.o. daily -Apixaban 2.5 mg p.o. twice daily -Cardiology following, appreciate recommendations #Hyperlipidemia LDL level within goal #Type 2 diabetes mellitus -SSI -Follow-up A1c Disposition: Telemetry awaiting pleural fluid studies Diet: Cardiac Lines: PIV DVT prophylaxis: Eliquis CODE STATUS: DNR Shiv Page MD Time Spent with Patient Time: Total time spent is greater than 50% in coordination of care (as documented) at patient's floor/unit and/or counseling patient: Time with patient: Greater than 35 minutes Reason for Continued Stay Reason for continued stay: other Quality Measures Quality Measures VTE prophylaxis Advance care planning discussed with:: patient
[2025-03-05 11:49] LABS: Cocci Serology, IgM Negative (Negative)
--- NOTE | 2025-03-05 13:37 | PC.SS ---
SPRING SETTER conducted bedside contact with the patient conduct initial assessment and to discuss discharge planning.? SPRING SETTER utilized granulator machine operator to assist with discussion.? Patient is Tongan speaking.? Patient confirmed demographic information.? Patient resides at home with spouse, Bello Woods.? Patient utilizes a walker to assist with DME.? Patient does not utilize home oxygen.? Patient describes the ability to complete ADL?s independently.? Patient identified son Macario Woods ; as surrogate medical decision maker.? Patient?s PCP is Derek Sahu [facility].? Patient?s early morning is Dr. Lopez.? Patient does not participate with dialysis.? Patient utilizes [facility] for medication services.? Family will provide transportation on behalf of the patient.? No further discharge needs identified by the patient.? No further intervention required at this time, renal social worker will be available to address any further concerns.? Next of Kin: Macario Woods D/C Plan: Home
--- NOTE | 2025-03-05 21:26 | PC.NURSE ---
called RT notified re ekg ordered this morning.
[2025-03-06] VITALS (14 sets, daily range): BP systolic 99–142; BP diastolic 52–79; PULSE 58–94; RESP 16–70; TEMP 36.1–37.1; O2SAT 94–98
--- NOTE | 2025-03-06 03:37 | PC.NURSE ---
RESPIRATORY THERAPIST REMINDED OF PATIENT'S ALBUTEROL INHALER ORDER,RESPONDED THAT SHE IS AWARE OF THE ORDER.
[2025-03-06 06:11] LABS: Basophils # (Auto) 0.0 Thou/mm3 (0.0-0.2); Basophils % (Auto) 0 % (0-2.5); Eosinophils # (Auto) 0.1 Thou/mm3 (0.0-0.5); Eosinophils % (Auto) 2 % (0-10); Hematocrit 38.6 % (36.0-46.0); Hemoglobin 12.4 g/dL (12.0-16.0); Immature Granulocytes Auto 0.01 Thou/mm3 (0.00-0.00); Lymphocytes # (Auto) 1.4 Thou/mm3 (1.0-4.8); Lymphocytes % (Auto) 27 % (10-50); Mean Corpuscular HGB Conc 32.1 g/dl (31.0-37.0); Mean Corpuscular Hemoglobin 28.2 pg (25.0-35.0); Mean Corpuscular Volume 88 fL (80-100); Monocytes # (Auto) 0.6 Thou/mm3 (0.0-0.8); Monocytes % (Auto) 10 % (0-12); Neutrophils # (Auto) 3.2 Thou/mm3 (1.8-7.7); Neutrophils % (Auto) 61 % (37-80); Nucleated Red Blood Cell # 0.00 Thou/mm3 (0.00-0.00); Nucleated Red Blood Cell % 0 /100 WBC (0); Platelet Count 239 Thou/mm3 (140-440); RDW Standard Deviation 51.8 fL (36.4-46.3); Red Blood Count 4.40 Miln/mm3 (4.00-5.20); White Blood Count 5.4 Thou/mm3 (3.6-11.0)
[2025-03-06 06:50] LABS: Alanine Aminotransferase < 7 U/L (10-49); Albumin, Serum 3.9 gm/dL (3.4-4.8); Albumin/Globulin Ratio 1.6 (1.2-2.2); Alkaline Phosphatase 53 U/L (46-116); Anion Gap 8 (7-16); Aspartate Amino Transferase 18 U/L (0-34); BUN/Creatinine Ratio 30 Ratio (12-20); Bilirubin,Total 0.5 mg/dL (0.3-1.2); Blood Urea Nitrogen 15 mg/dL (9-23); Calcium 9.3 mg/dL (8.3-10.6); Calcium (Corrected) 9.4 mg/dL (8.5-10.1); Carbon Dioxide 31.4 mMol/L (20.0-31.0); Chloride 101 mMol/L (98-107); Creatinine (Component) 0.5 mg/dL (0.6-1.3); Estimated Creatinine Clearance 61.6 mL/min (>60); Globulin 2.4 gm/dL (2.3-3.5); Glucose 75 mg/dL (74-106); Magnesium 1.7 mg/dL (1.6-2.6); Osmolality,Calculated 279 (275-295); Potassium 3.2 mMol/L (3.4-5.1); Sodium 140 mMol/L (136-145); Total Protein 6.3 gm/dL (5.7-8.2); eGFR > 60 See Note
[2025-03-06] MEDS: DILTIAZEM CD 180 MG CAPCR PO (08:34)
[2025-03-06] MEDS: APIXABAN 2.5 MG TABLET PO (08:38)
[2025-03-06] MEDS: FUROSEMIDE INJ 10 MG/ML 4ML VIAL 40 MG IVP (08:39)
--- NOTE | 2025-03-06 08:40 | XR_ITS ---
Examination: AP chest single view Technique one AP portable upright chest single view Date and time: March 06, 2025, 0911 hrs. Comparison: 03/04/2025 Indications: Difficulty breathing this week. Findings: Mild enlargement cardiac contour with moderate vascular congestion. Pneumonia left base with mild to moderate left pleural fluid Prominent osteopenia. Impression: Moderate vascular congestion. Pneumonia left base with mild to moderate left pleural fluid
[2025-03-06] MEDS: ALBUTEROL INH 8 GM 1 PUFF INH (09:06)
--- NOTE | 2025-03-06 10:36 | ESPR_ITS ---
Documentation for date of: 03/06/25 Subjective Subjective Interval history: Patient was seen and examined at bedside. Denied any new symptoms, denied any chest pain or shortness of breath. Repeat chest x-ray showed mild pleural effusion collection. Primary team planning to discharge the patient to follow- up in outpatient settings regarding her pleural fluid analysis results. Exam Vital Signs Temp Pulse Resp BP Pulse Ox O2 Del Method 97.2 F 77 18 105/75 96 Room Air 03/06/25 08:00 03/06/25 09:06 03/06/25 09:06 03/06/25 08:39 03/06/25 09:06 03/06/25 08:00 Narrative Exam GEN: AOx3, cachectic, Yakut speaker, lying in bed comfortably, able to speak full sentences HEENT: NC/AC, PERRLA, oral mucosa moist, neck supple CVS: RRR, S1-S2 present, no murmurs appreciated RESP: No crepitus, good air entry bilaterally GI: soft,non distended, non tender, NBS MSK: able to move all 4 limbs, no lower extremity edema SKIN: warm and dry RADIOLOGICAL DEFENSE OFFICER: CN II-XII and Sensation grossly intact. Objective Labs 03/06/25 05:12 03/06/25 05:12 Labs: Laboratory Results - last 24 hr 03/05/25 03/06/25 08:50 05:12 WBC 5.4 RBC 4.40 Hgb 12.4 Hct 38.6 MCV 88 MCH 28.2 MCHC 32.1 RDW Std Deviation 51.8 H Plt Count 239 Neut % (Auto) 61 Lymph % (Auto) 27 [place] % (Auto) 10 Eos % (Auto) 2 Baso % (Auto) 0 Neut # (Auto) 3.2 Lymph # (Auto) 1.4 [place] # (Auto) 0.6 Eos # (Auto) 0.1 Baso # (Auto) 0.0 Immature Gran # (Auto) 0.01 H Absolute Nucleated RBC 0.00 Immature Gran % 0 Nucleated RBC % 0 Sodium 140 Potassium 3.2 L D Chloride 101 Carbon Dioxide 31.4 H Anion Gap 8 BUN 15 Creatinine 0.5 L Estim Creat Clear Calc 61.6 eGFR > 60 BUN/Creatinine Ratio 30 H Glucose 75 Calculated Osmolality 279 Calcium 9.3 Corrected Calcium 9.4 Magnesium 1.7 Total Bilirubin 0.5 AST 18 ALT < 7 L Alkaline Phosphatase 53 Total Protein 6.3 Albumin 3.9 Globulin 2.4 Albumin/Globulin Ratio 1.6 Coccidioides IgM Ab Negative Quality Measures Quality Measures VTE prophylaxis Advance care planning discussed with:: patient Assessment & Plan Assessment Current Active Medications: Generic Name Dose Route Start Last Admin Trade Name Freq PRN Reason Stop Dose Admin Acetaminophen 1,000 mg 03/05/25 08:18 Acetaminophen 500 Mg Tablet PO 04/03/25 18:03 Q6H PRN Fever >99.9 Albuterol 1 puff 03/06/25 03:06 03/06/25 09:06 Albuterol Inh 8 Gm INH 04/05/25 03:05 1 puff Q4HR PRN Administration SHORTNESS OF BREATH Apixaban 2.5 mg 03/05/25 09:00 03/06/25 08:38 Apixaban 2.5 Mg Tablet PO 04/04/25 08:59 2.5 mg BID JENIFFER Administration Dextrose 25 ml 03/04/25 19:19 Dextrose 50%-Water Inj 50 Ml Syringe IV 04/03/25 19:18 Q15MIN PRN BG 50-70 responsive npo pt Dextrose 50 ml 03/04/25 19:19 Dextrose 50%-Water Inj 50 Ml Syringe IV 04/03/25 19:18 Q15MIN PRN BG <50 OR BG <70 & pt unresponsive Diltiazem HCl 180 mg 03/05/25 09:00 03/06/25 08:34 Diltiazem Cd 180 Mg Capcr PO 04/04/25 08:59 180 mg QDAY JENIFFER Administration Furosemide 40 mg 03/05/25 09:00 03/06/25 08:39 Furosemide Inj 10 Mg/Ml 4ml Vial IVP 04/04/25 08:59 40 mg QDAY JENIFFER Administration Glucagon 1 mg 03/04/25 19:19 Glucagon Inj 1 Mg Vial IM Q15MIN PRN BG <70, and no IV access Insulin Human Lispro 0 unit 03/05/25 07:30 03/06/25 07:47 Insulin Lispro (Admelog) 1 Unit/0.01 Ml Unit SC 04/04/25 07:29 Not Given AC JENIFFER Protocol Labetalol HCl 10 mg 03/04/25 18:34 Labetalol Inj 5 Mg/Ml Vial 20 Ml IVP 04/03/25 18:44 Q6H PRN SBP > 160 Lisinopril 2.5 mg 03/05/25 09:00 03/06/25 08:38 Lisinopril 2.5 Mg Tablet PO 04/04/25 08:59 2.5 mg QDAY JENIFFER Administration Ondansetron HCl 4 mg 03/04/25 18:09 Ondansetron Inj 2 Mg/Ml Inj 2 Ml IVP 04/03/25 18:08 Q6H PRN NAUSEA OR VOMITING Protocol Trazodone HCl 50 mg 03/04/25 21:00 03/05/25 20:50 Trazodone Hcl 50 Mg Tablet PO 04/03/25 20:59 50 mg HS JENIFFER Administration Plan An 84-year-old female patient with past medical history of hypertension, type 2 diabetes mellitus, CHF, hyperlipidemia, recurrent pleural effusion paroxysmal A- fib on Eliquis, was referred from our office after the patient was noticed to be short of breath and mild chest pain. Patient reported that she has some episodes of cough and shortness of breath. Cardiology was consulted for paroxysmal A-fib and chest pain #Chest pain #Persistent A-fib on Eliquis Patient is known case of paroxysmal A-fib on Eliquis and diltiazem. Still in A- fib however rate well-controlled. Patient reported mild to moderate chest pain. Increased with deep breath. Patient had Holter screening as an outpatient in November 2024 which showed 100% atrial fibrillation with average heart rate of 74, maximum heart rate 109 and minimum heart rate 51 with longest pause of 2.6 Patient had a nuclear stress test done in December 16, 2024 which showed normal myocardial perfusion study without evidence of any inducible ischemia her ejection fraction was 75% with normal wall motion. Troponin was negative, BNP was mildly elevated EKG showed only A-fib with rapid ventricular response, no ST changes. The reason we believe that her chest pain was likely of pleuritic chest pain noncardiac. Cocci screening negative, RERE still pending, ESR and CRP within normal Plan ? Echocardiogram was ordered, follow-up in the ? Continue the patient on Eliquis 2.5 mg p.o. daily ? Continue the patient on diltiazem 180 mg p.o. daily ? Follow-up with a web production manager as an outpatient ? Patient will need further workup for pleural effusion. #Pleural effusion, recurrent Bilateral however more on the right side most of the time. Patient has lost 12 kg for the past year unintentional According to lights criteria patient has positive exudate previous pleural fluid analysis was positive for exudate based on the lights criteria. Patient was also noticed to have cytology report was done in November 2024 for the pleural fluid and it was only positive for inflammatory cells was negative for any malignant cells. Cocci screening negative, RERE still pending, ESR and CRP within normal, T4 and TSH within normal Plan ? Follow-up on the RERE results. ? Follow-up on the cytology #History of hypertension Patient was put on losartan #Diabetes mellitus Patient is on insulin sliding scale - Patient's plan and care discussed with my attending, Dr. John Perea MD Internal Medicine PGY-3 Attending Provider Attestation/Addendum I have personally seen and examined the patient separately on the above date of service and discussed the plan of care with the resident. I reviewed the resident Dr. Perea consultation progress note and agree with the resident findings and plan in the note above and have also edited the documentation to reflect my findings and plan. Reg Lopez M.D. Interventional Cardiology
--- NOTE | 2025-03-06 11:20 | PD.RESPRO ---
Documentation for date of: 03/06/25 Subjective Subjective Interval history: Patient seen and examined at bedside. Hemoglobin 12.4 and stable, potassium 3.2, bicarb 31.4. ?Vitals are stable.? EKG yesterday showed an irregular rhythm with a rate of 78 suspicious for A-fib. Will follow-up pleural fluid albumin. Exam Vital Signs Temp Pulse Resp BP Pulse Ox O2 Del Method 97.2 F 77 18 105/75 96 Room Air 03/06/25 08:00 03/06/25 09:06 03/06/25 09:06 03/06/25 08:39 03/06/25 09:06 03/06/25 08:00 Narrative Exam General: Elderly lady. Awake and in no acute distress. Conversational and non-toxic appearing. Neurologic: GCS 15. Alert and oriented x3, no gross neurological deficit, and patient able to move all 4 extremities. HEENT: Normocephalic, atraumatic, mucous membranes moist. Pupils reactive to light. Heart: Regular rate and rhythm, normal S1 and S2, no murmurs. Lungs: Clear to auscultation bilaterally with no wheezing or crackles. Abdomen: Soft, nondistended, nontender, positive bowel sounds. No guarding or rebound tenderness. Extremities: No edema. 2+ radial and dorsalis pedis pulses bilaterally. Skin: Warm. Dry. No rash or ecchymoses. Objective Labs 03/06/25 05:12 03/06/25 05:12 Labs: Laboratory Results - last 24 hr 03/05/25 03/06/25 08:50 05:12 WBC 5.4 RBC 4.40 Hgb 12.4 Hct 38.6 MCV 88 MCH 28.2 MCHC 32.1 RDW Std Deviation 51.8 H Plt Count 239 Neut % (Auto) 61 Lymph % (Auto) 27 [place] % (Auto) 10 Eos % (Auto) 2 Baso % (Auto) 0 Neut # (Auto) 3.2 Lymph # (Auto) 1.4 [place] # (Auto) 0.6 Eos # (Auto) 0.1 Baso # (Auto) 0.0 Immature Gran # (Auto) 0.01 H Absolute Nucleated RBC 0.00 Immature Gran % 0 Nucleated RBC % 0 Sodium 140 Potassium 3.2 L D Chloride 101 Carbon Dioxide 31.4 H Anion Gap 8 BUN 15 Creatinine 0.5 L Estim Creat Clear Calc 61.6 eGFR > 60 BUN/Creatinine Ratio 30 H Glucose 75 Calculated Osmolality 279 Calcium 9.3 Corrected Calcium 9.4 Magnesium 1.7 Total Bilirubin 0.5 AST 18 ALT < 7 L Alkaline Phosphatase 53 Total Protein 6.3 Albumin 3.9 Globulin 2.4 Albumin/Globulin Ratio 1.6 Coccidioides IgM Ab Negative Quality Measures Quality Measures VTE prophylaxis Advance care planning discussed with:: patient Assessment & Plan Assessment Current Active Medications: Generic Name Dose Route Start Last Admin Trade Name Freq PRN Reason Stop Dose Admin Acetaminophen 1,000 mg 03/05/25 08:18 Acetaminophen 500 Mg Tablet PO 04/03/25 18:03 Q6H PRN Fever >99.9 Albuterol 1 puff 03/06/25 03:06 03/06/25 09:06 Albuterol Inh 8 Gm INH 04/05/25 03:05 1 puff Q4HR PRN Administration SHORTNESS OF BREATH Apixaban 2.5 mg 03/05/25 09:00 03/06/25 08:38 Apixaban 2.5 Mg Tablet PO 04/04/25 08:59 2.5 mg BID JENIFFER Administration Dextrose 25 ml 03/04/25 19:19 Dextrose 50%-Water Inj 50 Ml Syringe IV 04/03/25 19:18 Q15MIN PRN BG 50-70 responsive npo pt Dextrose 50 ml 03/04/25 19:19 Dextrose 50%-Water Inj 50 Ml Syringe IV 04/03/25 19:18 Q15MIN PRN BG <50 OR BG <70 & pt unresponsive Diltiazem HCl 180 mg 03/05/25 09:00 03/06/25 08:34 Diltiazem Cd 180 Mg Capcr PO 04/04/25 08:59 180 mg QDAY JENIFFER Administration Furosemide 40 mg 03/05/25 09:00 03/06/25 08:39 Furosemide Inj 10 Mg/Ml 4ml Vial IVP 04/04/25 08:59 40 mg QDAY JENIFFER Administration Glucagon 1 mg 03/04/25 19:19 Glucagon Inj 1 Mg Vial IM Q15MIN PRN BG <70, and no IV access Insulin Human Lispro 0 unit 03/05/25 07:30 03/06/25 11:16 Insulin Lispro (Admelog) 1 Unit/0.01 Ml Unit SC 04/04/25 07:29 Not Given AC JENIFFER Protocol Labetalol HCl 10 mg 03/04/25 18:34 Labetalol Inj 5 Mg/Ml Vial 20 Ml IVP 04/03/25 18:44 Q6H PRN SBP > 160 Lisinopril 2.5 mg 03/05/25 09:00 03/06/25 08:38 Lisinopril 2.5 Mg Tablet PO 04/04/25 08:59 2.5 mg QDAY JENIFFER Administration Ondansetron HCl 4 mg 03/04/25 18:09 Ondansetron Inj 2 Mg/Ml Inj 2 Ml IVP 04/03/25 18:08 Q6H PRN NAUSEA OR VOMITING Protocol Trazodone HCl 50 mg 03/04/25 21:00 03/05/25 20:50 Trazodone Hcl 50 Mg Tablet PO 04/03/25 20:59 50 mg HS JENIFFER Administration Plan 84-year-old female with a past medical history of CHF, atrial fibrillation on Eliquis, hypertension, type 2 diabetes mellitus, hyperlipidemia, and recurrent pleural effusions who is being observed s/p thoracentesis. #Chest Pain w/ Hypertensive Urgency #Recurrent Pleural Effusion #CHF, possibly HFpEF that has decompensated Relatively hemodynamically stable, hypertensive urgency this admit to 150s-180s w/o evidence of end-organ damage per admission labs. Pt presents w/ x1 month chest pain and recurrent effusions requiring to date x4 thoracenteses. Latest Echo 11/18/23 showed normal LVEF. Given recurrent effusions as well as 20lb weight loss over the last month very concerning for decompensation of CHF. EKG in ED revealed AFIB. Tentatively NYHA Class III pending further workup. Will calculate ASCVD risk once lipid panel is complete. Pt is s/p thoracentesis in ED today which drained 950cc fluid. Plan: -Order latest Echo to characterize possible decompensation of HF -Cardiology following, holding home BP and CHF meds -Pleural fluid sent out for cytology, pending results, pending RERE, Cocci serology, albumin #AFIB Chronic per pt, following cardiology. At home has rate control w/ diltiazem 180mg POqD. Currently in AFIB per ED EKG. Plan: -Holding: -Diltiazem 100 mg p.o. daily -Apixaban 2.5 mg p.o. twice daily -Cardiology following, appreciate recommendations #Hyperlipidemia LDL level within goal #Type 2 diabetes mellitus -SSI -Follow-up A1c Disposition: Telemetry, lab contacted and pleural albumin ordered. Diet: Cardiac Lines: PIV DVT prophylaxis: Eliquis CODE STATUS: DNR Patient was seen and discussed with my attending physician Dr. Kaylee NIX and my senior resident Dr. Gonzalo NIX PGY-3. Jey Arceo DO PGY-1. Attending Provider Attestation/Addendum I attest that I was physically present for the evaluation, physical examination, lab and imaging review of the patient with the residents. I discussed the case with the residents and agree with the findings and plans of care as documented above. Shiv Page MD
[2025-03-06 15:05] LABS: Cocci Serology, IgG Negative (Negative)
[2025-03-06 16:17] LABS: Albumin, Peritoneal Fluid 2.8 gm/dL
--- NOTE | 2025-03-06 18:00 | PD.RESDS ---
Planned Discharge Date 03/07/25 DS: Providers Provider Date of admission: 03/05/25 08:52 Primary care physician: Derek Sahu PA-C Admitting Provider: Shiv Page MD Attending Provider on Admission: Shiv Page MD Consults: 03/04/25 18:30 Consult to Cardiology Routine Comment: Consulting Provider: Reg Lopez Attending Provider on DC: Carlos A Sánchez MD Discharging Provider: Carlos A Sánchez MD DS: Diagnosis Problem List Completed Was Problem List Reviewed/Reconciled?: Yes Hospital Course Hospital Course Hospital course: Marcia Domínguez is an 84 yo F w/ PMH CHF, recurrent pleural effusions s/p thoracenteses x4 HTN, AFIB on Eliquis, HLD who presented to [facility] ED w/ complaint of Chest pain + SOB. She had been visiting her Bank Note Designer Dr. Lopez where she reported SOB and was instructed to come to ED. She presented with her son who helped provide history. She reports 7/10 chest pain intermittently x1 month, associated with cough, SOB, and 40lb weight loss in the last 3 months. She has received x3 thoracenteses since November this year and each time greatly improved symptomatically. In the ED she received a fourth thoracentesis that drained 950cc pleural fluid which was sent for analysis and culture. EKG showed AFIB. She was admitted overnight for observation. Regarding AFIB, she was tachycardic this admission. Which improved during the hospital stay. Regarding recurrent effusions, pleural fluid drained this encounter was positive for exudative effusion, cytology pending. Regarding 3 month history of 40lb weight loss, per chart review CT Chest/Ab/Pelvis 01/12/25 showed 3mm pulmonary nodule of LLL and 35mm uterine body mass. Subsequent pelvic US showed 23 x 17 x 26 mm uterine body area of fibroid degeneration. Studies were sent including RERE screen cocci serology, tumor markers including AFP, CEA. Echocardiography was ordered. Pleural fluids studies showed 675 WBCs with 98% mononuclear cells, total protein of 4 compared to 6.8 and serum and LDH of 78 compared to 190 serum. Meets 1 of lights criteria. Obtained pleural fluid albumin, which came back at 2.8 compared to 4.3 and serum. Pleural fluid Gram stain and culture are still pending. Of note, patient's previous pleural fluid studies from November had similar picture, had negative Gram stain and culture results along with negative pathology results. With patient being on diuretics, concern for pseudo exudative fluid also arises. The pleural fluid to serum fluid gradient is more than 1.2 supporting more for diagnosis of pseudo exudate. Patient has CHF, possibly contributing to her transudative (pseudo exudative) pleural effusion. Patient seen and examined at bedside this morning, appears comfortable and denies any new complaints. States she feels comfortable, does not appear to be in respiratory distress. Vital signs are stable, saturating well on room air. Lab results are stable as well except for potassium of 3.2, repleted accordingly. Patient deemed stable for discharge on her home medications. Recommended to follow-up with her PCP and cardiology in 1 to 2 weeks of discharge. Recommended to follow-up on results from pleural fluid studies. She may also benefit from pulmonology consult. 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 Pupils reactive to light. Heart: Regular rate and rhythm, normal S1 and S2, no murmurs. Lungs: Clear to auscultation bilaterally with no wheezing or crackles. Abdomen: Soft, nondistended, nontender, positive bowel sounds. No guarding or rebound tenderness. Extremities: No edema. 2+ radial and dorsalis pedis pulses bilaterally. Neurologic: Alert and oriented x4, no gross neurological deficit, and patient able to move all 4 extremities. Skin: Warm. Dry. No rash or ecchymoses. Discharge Plan Plan Patient Disposition: HOME (Self Care) Patient condition on transfer: Stable Care Plan Goals: - Continue taking your home medications as prescribed. - Follow-up with your pull through hooker, Dr. Lopez, within 1-2 weeks of discharge. - Follow-up with PCP within 1-2 weeks of discharge for cytology results from your thoracentesis. - Pleural studies completed. Advisable to follow up on CEA and AFP levels. - Recommend outpatient Pulmonology referral for further evaluation of recurrent pleural effusions. - If you do not have a PCP, you can follow-up at the [facility] (you can call [phone] to make an appointment) - Return to ED if symptoms worsen or recur. Prescriptions/Referrals Prescriptions/Med Rec: Continued metformin 500 mg Tablet 1,000 mg PO .wmeals rosuvastatin 5 mg Tablet 5 mg PO QPM Rx Instructions: TAKE WITH DINNER Eliquis 5 mg tablet 5 mg PO BID 30 Days Qty: 60 3RF trazodone 50 mg tablet 50 mg PO HS Patient Comments: TAKE 1 TABLET BY MOUTH AT BEDTIME diltiazem HCl [Matzim LA] 180 mg tablet extended release 24 hr 180 mg PO Q24H Patient Comments: TAKE 1 TABLET BY MOUTH EVERY DAY FOR 90 DAYS losartan 50 mg tablet 50 mg PO QDAY Patient Comments: TAKE 1 TABLET BY MOUTH EVERY DAY albuterol sulfate 90 mcg/actuation HFA aerosol inhaler 1 inh inhalation Q4H furosemide [Lasix] 40 mg tablet 20 mg PO QDAY Discontinued lisinopril 2.5 mg tablet 2.5 mg PO QDAY Qty: 30 0RF Referrals: Derek Sahu PA-C [Primary Care Provider] Patient/Caregiver Discharge Instructions Education Materials: Pleural Effusion, Thoracentesis Dc, Your Heart's Electrical System, Low-Salt Choices Print Language: Bahraini Stand Alone Forms: [employer] Info., Patient Portal Info Letter Discharge Order Discharge Orders: Discharge (Routine); Ordered 03/06/25 Ordered By: Carlos A Sánchez Quality Discharge Quality Measures VTE prophylaxis
[2025-03-06 18:39] LABS: AFP Non-Pregnant < 1.30 ng/mL (<8.10); Carcinoembryonic Antigen 1.2 ng/mL (0.0-5.0)
[2025-03-10 07:11] LABS: ANA Screen, IFA NEGATIVE (NEGATIVE)
== END 2025-03-06 20:00 | disposition home or self-care (01) | DRG 304 ==
LOC: SERX 15:08 → SERHOLD 17:17 → S2NX 03-05 06:04 → SERHOLD 03-05 06:50 → S2NX 03-05 06:51 → S3NX 03-05 23:27
PROVIDERS: Nurse Practitioner Primary Care; Student in an Organized Health Care Education/Training Program; Admitting Provider Student in an Organized Health Care Education/Training Program; Emergency Provider Emergency Medicine; PCP Student in an Organized Health Care Education/Training Program; Visit Provider Student in an Organized Health Care Education/Training Program
DX: I16.0 Hypertensive urgency (principal); I50.33 Acute on chronic diastolic (congestive) heart failure; J91.8 Pleural effusion in other conditions classified elsewhere; I48.19 Other persistent atrial fibrillation; I11.0 Hypertensive heart disease with heart failure; E78.5 Hyperlipidemia, unspecified; D25.9 Leiomyoma of uterus, unspecified; E11.9 Type 2 diabetes mellitus without complications; Z66 Do not resuscitate; Z79.01 Long term (current) use of anticoagulants; Z79.899 Other long term (current) drug therapy
CPT/HCPCS: 36415; 71045; 80053; 80061; 82042; 82105; 82150; 82378; 82945; 83036; 83615; 83735; 83880; 83986; 84157; 84315; 84439; 84443; 84484; 85025; 85610; 85652; 85730; 86038; 86140; 86331; 86635; 87070; 87205; 89051; 93005; 93225; 93306; 94640; 94664; 94762; 99285; C1729; G0378; J1938; J3475; A9270

== ENCOUNTER 2025-03-22 07:10 | Day surgery (SDC) | payer MEDICARE, MEDICAID, SELFPAY ==
[2025-03-22] VITALS (16 sets, daily range): BP systolic 97–201; BP diastolic 55–114; PULSE 64–99; RESP 16–24; TEMP 36.7–37.2; O2SAT 94–98; BMI 18.8
[2025-03-22] MEDS: MIDAZOLAM INJ 1 MG/ML VIAL 2 ML (ASD USE ONLY) 2 MG IVP (09:45)
[2025-03-22] MEDS: BENZOCAINE 20% (Hurricaine) SPRAY 1 DOSE TOP (09:45)
[2025-03-22] MEDS: DEXTROSE 5%-NS 1,000 ML 20 ML IV (09:45)
[2025-03-22] MEDS: fentaNYL CIT INJ 50 mCg/ML AMP 2ML (ASD USE ONLY) IVP (09:46)
[2025-03-22] MEDS: LABETALOL INJ 5 MG/ML VIAL 20 ML 10 MG IVP (09:46)
--- NOTE | 2025-03-22 09:58 | SUR.OPER ---
0912 Dr Villarreal informed of pt's repeat bs-73. Wants D5W IV to continue
[2025-03-22] MEDS: SODIUM CHLORIDE 0.9% 500 ML 500 ML 20 ML IV (10:00)
== END 2025-03-22 11:05 | disposition home or self-care (01) ==
PROVIDERS: PCP Student in an Organized Health Care Education/Training Program; Referring Provider Specialist; Visit Provider Specialist
PROC: 0DBE8ZX Excision of Large Intestine, Via Natural or Artificial Opening Endoscopic, Diagnostic (ICD-10-PCS; CPT 45380; principal; 2025-03-22 12:15)
PROC: (CPT 43239; 2025-03-22 12:15)
DX: K55.20 Angiodysplasia of colon without hemorrhage (principal); K64.1 Second degree hemorrhoids; K57.30 Diverticulosis of large intestine without perforation or abscess without bleeding; R19.4 Change in bowel habit; I10 Essential (primary) hypertension; E11.9 Type 2 diabetes mellitus without complications; E78.5 Hyperlipidemia, unspecified; Z79.899 Other long term (current) drug therapy; Z79.01 Long term (current) use of anticoagulants; Z79.84 Long term (current) use of oral hypoglycemic drugs
CPT/HCPCS: 45382; A4649; J2250; J3010; J3490; J7042; J7999; A9270; J1920

== ENCOUNTER → 2025-04-19 | Outpatient (CLI) | payer MEDICARE, MEDICAID, SELFPAY ==
--- NOTE | 2025-04-19 08:27 | XR_ITS ---
EXAMINATION: PA lateral chest 2 views TECHNIQUE: Upright PA lateral chest 2 views Date and time: April 19, 2025, 0836 hours, comparison 03/06/2025 INDICATIONS: Shortness of breath beginning 2 months ago, diagnosis hypertension FINDINGS: No significant cardiac enlargement Moderate to large right pleural effusion Mild to moderate left pleural effusion Prominent osteopenia IMPRESSION: Moderate to large right pleural effusion Mild to moderate left pleural effusion
== END | disposition home or self-care (01) ==
LOC: CDIM 08:17
PROVIDERS: PCP Student in an Organized Health Care Education/Training Program; Referring Provider Student in an Organized Health Care Education/Training Program; Visit Provider Student in an Organized Health Care Education/Training Program
DX: J90 Pleural effusion, not elsewhere classified (principal)
CPT/HCPCS: 71046

== ENCOUNTER 2025-04-23 10:07 | Emergency (ER) | payer MEDICARE, MEDICAID, SELFPAY ==
[2025-04-23 10:08] VITALS: BMI 23.8
[2025-04-23 10:22] VITALS: BP 156/87; PULSE 86; RESP 18; TEMP 36.9; O2SAT 95
--- NOTE | 2025-04-23 10:34 | XR_ITS ---
EXAMINATION: PA chest single view TECHNIQUE: Upright PA chest single view Date and time: April 23, 2025, 11:01 a.m., comparison April 19, 2025 INDICATIONS: Shortness of breath, history right pleural fluid FINDINGS: Again noted moderate right pleural fluid Normal heart size Left lung clear Moderate osteopenia IMPRESSION: Again noted moderate right pleural fluid
--- NOTE | 2025-04-23 10:36 | PD.EDRME ---
Rapid Medical Screening Exam RME Arrival date/time: 04/23/25 10:07 84-year-old female with a history of hypertension, type 2 diabetes, hyperlipidemia presents to the emergency room with a chief complaint of a pleural effusion. Patient had x-rays done on 04/19/2025 and was sent to the emergency room today due to the patient's increase in shortness of breath I have greeted and performed a focused initial assessment of this patient. A comprehensive ED assessment and evaluation of the patient, analysis of all test results, and completion of the medical decision making process will be conducted by additional ED providers. Chief Complaint: Shortness of Breath/Dyspnea Time Seen by Provider: 04/23/25 10:15 Vital signs: Vital Signs Temperature 98.5 F 04/23/25 10:22 Pulse Rate 86 04/23/25 10:22 Respiratory Rate 18 04/23/25 10:22 Blood Pressure 156/87 H 04/23/25 10:22 Pulse Oximetry (%) 95 04/23/25 10:22 Oxygen Delivery Method Room Air 04/23/25 10:22 Vital signs reviewed by provider: No Exam: Diminished breath sounds Strong and regular rhythm S1 and S2 noted GCS 15 Clinical Impression: Pleural effusion/community-acquired pneumonia/pericardial effusion
--- NOTE | 2025-04-23 10:37 | EKG_ITS ---
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
[2025-04-23 11:13] VITALS: BP 171/88; PULSE 92; RESP 34; TEMP 36.6; O2SAT 95
[2025-04-23 11:18] LABS: Basophils # (Auto) 0.0 Thou/mm3 (0.0-0.2); Basophils % (Auto) 0 % (0-2.5); Eosinophils # (Auto) 0.0 Thou/mm3 (0.0-0.5); Eosinophils % (Auto) 1 % (0-10); Hematocrit 40.4 % (36.0-46.0); Hemoglobin 13.5 g/dL (12.0-16.0); Immature Granulocytes Auto 0.02 Thou/mm3 (0.00-0.00); Lymphocytes # (Auto) 1.1 Thou/mm3 (1.0-4.8); Lymphocytes % (Auto) 22 % (10-50); Mean Corpuscular HGB Conc 33.4 g/dl (31.0-37.0); Mean Corpuscular Hemoglobin 29.5 pg (25.0-35.0); Mean Corpuscular Volume 88 fL (80-100); Monocytes # (Auto) 0.5 Thou/mm3 (0.0-0.8); Monocytes % (Auto) 10 % (0-12); Neutrophils # (Auto) 3.3 Thou/mm3 (1.8-7.7); Neutrophils % (Auto) 67 % (37-80); Nucleated Red Blood Cell # 0.00 Thou/mm3 (0.00-0.00); Nucleated Red Blood Cell % 0 /100 WBC (0); Platelet Count 242 Thou/mm3 (140-440); RDW Standard Deviation 49.0 fL (36.4-46.3); Red Blood Count 4.58 Miln/mm3 (4.00-5.20); White Blood Count 5.0 Thou/mm3 (3.6-11.0)
[2025-04-23 11:22] VITALS: PULSE 97; RESP 32; RESP 96
[2025-04-23 11:30] LABS: INR 1.0 (0.9-1.3); Partial Thromboplastin Time 25.9 Seconds (22.0-36.0); Prothrombin Time 11.0 Seconds (9.0-12.2)
[2025-04-23 11:31] LABS: B-Type Natriuretic Peptide 262 pg/mL (0-100)
[2025-04-23] MEDS: MethylPREDNISolone SOD SUCC 62.5 MG/ML 2ML VIAL 125 MG IVP (11:35)
[2025-04-23] MEDS: SODIUM CHLORIDE 0.9% 1000 ML 1,000 ML 100 ML IV (11:38)
[2025-04-23 11:40] LABS: Collection Type, Urine Clean Catch
[2025-04-23 11:43] LABS: Alanine Aminotransferase 8 U/L (10-49); Albumin, Serum 4.8 gm/dL (3.4-4.8); Albumin/Globulin Ratio 2.1 (1.2-2.2); Alkaline Phosphatase 58 U/L (46-116); Anion Gap 11 (7-16); Aspartate Amino Transferase 17 U/L (0-34); BUN/Creatinine Ratio 23 Ratio (12-20); Bilirubin,Total 0.3 mg/dL (0.3-1.2); Blood Urea Nitrogen 14 mg/dL (9-23); Calcium 9.5 mg/dL (8.3-10.6); Calcium (Corrected) 9.5 mg/dL (8.5-10.1); Carbon Dioxide 31.6 mMol/L (20.0-31.0); Chloride 101 mMol/L (98-107); Creatinine (Component) 0.6 mg/dL (0.6-1.3); Estimated Creatinine Clearance 45.8 mL/min (>60); Globulin 2.3 gm/dL (2.3-3.5); Glucose 104 mg/dL (74-106); Magnesium 1.4 mg/dL (1.6-2.6); Osmolality,Calculated 287 (275-295); Potassium 3.7 mMol/L (3.4-5.1); Sodium 144 mMol/L (136-145); Total Protein 7.1 gm/dL (5.7-8.2); Troponin I < 0.020 ng/mL (0.0-0.045); eGFR > 60 See Note
[2025-04-23 11:47] VITALS: PULSE 71; PULSE 87; RESP 28; O2SAT 100
[2025-04-23] MEDS: ALBUTEROL RT 2.5 MG/0.5 ML NEBU 5 MG INH (11:47)
[2025-04-23] MEDS: SODIUM CHLORIDE RT SOL 0.9% 3 ML NEBU INH (11:47)
[2025-04-23 11:54] LABS: Bilirubin,Urine Negative (Negative); Blood,Urine Negative (Negative); Clarity,Urine Clear (Clear/Hazy); Color,Urine Colorless (Lt Yel-Yel); Culture Indicated,Urine Not Indicated; Glucose, Urine Negative (Negative); Ketones,Urine Negative (Negative); Leukocyte Esterase,Urine Negative (Negative); Nitrite,Urine Negative (Negative); PH,Urine 7.5 (5.0-7.0); Protein,Urine Negative (Neg - Trace); RBC,Urine 1 /hpf (0-3); Specific Gravity,Urine 1.008 (1.001-1.035); Squamous Epithelial Cell,Urine 1 /hpf (0-5); Urobilinogen,Urine Negative mg/dL (0.0-1.0); WBC,Urine < 1 /hpf (0-5)
[2025-04-23 13:28] VITALS: BP 131/56; PULSE 76; RESP 14; TEMP 36.6; O2SAT 95
--- NOTE | 2025-04-23 15:43 | EDNOTE_ITS ---
ED SOB =RME/HPI General Chief Complaint: Shortness of Breath/Dyspnea Stated Complaint: SOB X1 WEEK Time Seen by Provider: 04/23/25 10:15 Arrival date/time: 04/23/25 10:07 Limitations: no limitations RME / HPI RME / HPI Narrative: 04/23/25 10:07 84-year-old female with a history of hypertension, type 2 diabetes, hyperlipidemia presents to the emergency room with a chief complaint of a pleural effusion. Patient had x-rays done on 04/19/2025 and was sent to the emergency room today due to the patient's increase in shortness of breath I have greeted and performed a focused initial assessment of this patient. A comprehensive ED assessment and evaluation of the patient, analysis of all test results, and completion of the medical decision making process will be conducted by additional ED providers. DR. GOODEN MAIN ED EVALUATION: 84 year old female with history of CHF (EF 60-65%), atrial fibrillation on Eliquis, recurrent pleural effusions s/p thoracentesis x5, hypertension, hyperlipidemia presents to the ED for evaluation of shortness of breath beginning 1 week ago. Patient described feeling she is not getting enough air with no known modifying factors at home. Patient reports her shortness of breath today is similar to previous episodes of shortness of breath with pleural effusions. Denies fevers, chills, chest pain, abdominal pain, n/v. Exam: Diminished breath sounds Strong and regular rhythm S1 and S2 noted GCS 15 Impression: Pleural effusion/community-acquired pneumonia/pericardial effusion Related Data Home Medications ?Medication ?Instructions ?Recorded ?Confirmed metformin 500 mg tablet 1,000 mg PO .wmeals 10/10/21 03/22/25 rosuvastatin 5 mg tablet 5 mg PO QPM 11/18/23 5 albuterol sulfate 90 mcg/actuation 1 inh inhalation Q4 H 03/04/25 03/22/25 aerosol inhaler diltiazem HCl 180 mg 180 mg PO Q24H 03/04/2503/10 tablet,extended release 24 hr (Matzim [place]) furosemide 40 mg tablet (Lasix) 20 mg PO QDAY 03/04/25 03/22/25 losartan 50 mg tablet 50 mg PO QDAY 03/04/2503/22 apixaban 2.5 mg tablet (Eliquis) 2.5 mg PO QDAY 03/22/25 Previous Rx's ?Medication ?Instructions ?Recorded albuterol sulfate 90 mcg/actuation 2 inh inhalation Q6 H PRN shortness 04/23/25 breath activated powder inhaler of breath #2 ea prednisone 20 mg tablet 20 mg PO QDAY SHORTNESS OF B REATH 04/23/25 #18 tabs Allergies Allergy/AdvReac Type Severity Reaction Status Date / Time No Known Allergies Allergy Verified 03/22/25 07:57 Review of Systems Review of Systems Systems Reviewed: All systems reviewed, normal except as documented Past Medical History Past Medical History CARDIAC: Positive Cardiac Disorders, Atrial Fibrillation, Congestive Heart Failure and Hypertension GASTROINTESTINAL: Positive Gastrointestinal Disorders and Pancreatitis ENT: Positive Deafness ([place]) ENDOCRINE: Positive Diabetes Mellitus Type 2 Social History SMOKING STATUS: Never smoker ED Exam General Limitations: Present no limitations General appearance: Present alert and in no apparent distress Head Head exam: Present atraumatic, normocephalic and normal inspection Eye Eye exam: Present normal appearance, PERRL and EOMI ENT ENT exam: Present normal exam, normal oropharynx and mucous membranes moist Neck Neck exam: Present normal inspection, full ROM and trachea midline Chest Chest inspection: Present normal inspection and symmetric chest wall rise Respiratory Respiratory exam: Present other (Diminished breath sounds) Cardiovascular Cardiovascular exam: Present regular rate, normal rhythm and normal heart sounds Abdominal Exam Abdominal exam: Present soft and normal bowel sounds Extremities Exam Extremities exam: Present normal inspection and full ROM Back Exam Back exam: Present normal inspection and full ROM Neurological Exam Neurological exam: Present alert, oriented X3 and CN II-XII intact Psychiatric Psychiatric exam: Present normal affect and normal mood Skin Skin exam: Present warm, dry, intact and normal color Course Quality Measures none Orders Category Date Time Status Spring Former NOW Care 04/23/25 11:22 Completed Continuous Pulse Oximetry NOW Care 04/23/25 11:22 Completed EKG (ED ONLY) *Do not use* NOW Care 04/23/25 10:37 Completed Insert IV NOW Care 04/23/25 11:22 Completed EKG (ED Only) Stat Exams 04/23/25 10:37 Draft XR chest 1V portable Stat Exams 04/23/25 10:34 Completed B-Type Natriuretic Peptide Stat Lab 04/23/25 10:55 Completed CBC Stat Lab 04/23/25 10:55 Completed CMP [Comprehensive Metabolic Panel] Stat Lab 04/23/25 10:55 Completed Magnesium Stat Lab 04/23/25 10:55 Completed PT [Prothrombin Time with INR] Stat Lab 04/23/25 10:55 Completed PTT [Partial Thromboplastin Time] Stat Lab 04/23/25 10:55 Completed Troponin I Stat Lab 04/23/25 10:55 Completed Urinalysis, C/S if Indicated Stat Lab 04/23/25 11:30 Completed ALBUTEROL RT 0.5ml [Proventil Rt 0.5ml] Med 04/23/25 11:23 Discontinued 5 mg INH X1 ONE MethylPREDNISolone.* [SoluMEDROL Inj] Med 04/23/25 11:23 Discontinued 125 mg IVP X1 ONE Sodium Chloride 0.9% 1000 ml [Ns] 1,000 ml Med 04/23/25 11:22 Discontinued IV 100 mls/hr Sodium Chloride Rt Bhavani 0.9% [NS Rt Bhavani 0.9%] Med 04/23/25 11:23 Discontinued 3 ml INH PRN PRN Oxygen Delivery NOW RT 04/23/25 11:22 Completed Vital Signs Vital signs: Vital Signs Temperature 98.5 F 04/23/25 10:22 Pulse Rate 86 04/23/25 10:22 Respiratory Rate 18 04/23/25 10:22 Blood Pressure 156/87 H 04/23/25 10:22 Pulse Oximetry (%) 95 04/23/25 10:22 Oxygen Delivery Method Room Air 04/23/25 10:22 Pulse ox is 95% on room air which is adequate. Shortness of Breath / Dyspnea MDM Narrative MDM Narrative:: Martha Winters am scribing for and in the presence of Dr. Gooden. I reviewed todays labs and chest xray. The chest xray showed she had pleural fluid. I evaluated previous history and patient last had a thoracentesis performed February of this year. The analysis of the fluid showed no malignant cells, with macrophages, red blood cells, lymphocytes, and neutrophils. The patient has remained stable through ED course. We reviewed all the results, analysis, and treatment plans. Strict return precautions were outlined. Patient diagnosed with shortness of breath, COPD exacerbation, pleural fluid. I advised she follow up with PCP for referral to safety coordinator. Patient data External records reviewed:: [facility] previous records Clinical information provided by:: patient Social determinants that could affect healthcare access:: none Patient has the following chronic illnesses:: CHF (EF 60-65%), atrial fibrillation on Eliquis, recurrent pleural effusions s/p thoracentesis x5, hypertension, hyperlipidemia How is presenting disease/condition affected by chronic disease/condition?: exacerbated by Evaluation data The following diagnostics were reviewed and interpreted by me:: lab results, radiology exam(s) and EKG tracing(s) (EKG @ 11:19h, interpreted by me, atrial fibrillation, rate 91, no STEMI. ) Lab and/or radiology exams considered but not ordered:: None Interpretation Summary: Ordering Physician: Alejandro Olmos Date of Service: 04/23/25 Procedure(s): XR chest 1V portable Accession Number(s): [id number] cc: Alejandro Olmos; Sam Salcedo MD~ EXAMINATION: PA chest single view TECHNIQUE: Upright PA chest single view Date and time: April 23, 2025, 11:01 a.m., comparison April 19, 2025 INDICATIONS: Shortness of breath, history right pleural fluid FINDINGS: Again noted moderate right pleural fluid Normal heart size Left lung clear Moderate osteopenia IMPRESSION: Again noted moderate right pleural fluid Dictated By: Sam Salcedo MD Signed By: <Electronically signed by Sam Salcedo MD in [place]> 04/23/25 1110 Medications / Prescriptions Medications or Prescriptions considered but not ordered:: None Medication administrations:: Medication Administration History Discontinued Medications Albuterol (Albuterol Rt 2.5 Mg/0.5 Ml Nebu) 5 mg INH X1 ONE Stop: 04/23/25 11:24 Last Admin: 04/23/25 11:47 Dose: 5 mg Documented By: LOVE Sodium Chloride (Ns) 1,000 mls @ 100 mls/hr IV .Q10H ONE Stop: 04/23/25 21:21 Last Infusion: 04/23/25 13:31 Dose: 0 mls/hr Documented By: Admin: 04/23/25 11:38 Dose: 100 mls/hr Documented By: GABY Methylprednisolone Sodium Succinate (Methylprednisolone Sod Succ 62.5 Mg/Ml 2ml Vial) 125 mg IVP X1 ONE Stop: 04/23/25 11:24 Last Admin: 04/23/25 11:35 Dose: 125 mg Documented By: GM Sodium Chloride (Sodium Chloride Rt Bhavani 0.9% 3 Ml Nebu) 3 ml INH PRN PRN PRN Reason: SOLN Stop: 05/23/25 11:22 Last Admin: 04/23/25 11:47 Dose: 3 ml Documented By: LOVE See above Consultations Consultation(s) initiated? (list below): No Diagnosis Shortness of Breath Differential Diagnosis: acute exacerbation of chronic obstructive airways disease, congestive heart failure and community acquired pneumonia Most likely diagnosis given after review of the tests above:: Recurrent pleural effusion COPD exacerbation Admission Indicated Admission indicated?: not indicated Explain why admission is indicated or not indicated:: With no condition needing emergent intervention, there was no indication for admission. Admission Request Was there a request for admission?: No Disposition Plan Disposition Plan: Discharge Discharge Attestation Discharge Attestation: The patient and all family members were given an opportunity to ask questions and understood the discharge instructions. Discharge instructions specifically effects, indications for sooner follow up or return to the emergency department, and the expected course of current diagnosis. Patient condition: Stable Discharge Plan Plan Patient Disposition: HOME (Self Care) Patient condition on transfer: Stable Prescriptions/Referrals Prescriptions/Med Rec: New albuterol sulfate 90 mcg/actuation aerosol powdr breath activated 2 inh inhalation Q6H MDD 8 INHALATIONS PRN (Reason: shortness of breath) Qty: 2 1RF prednisone 20 mg tablet 20 mg PO QDAY MDD 3 Qty: 18 0RF Rx Instructions: Take 3 Tabs q Day for 3 days then take 2 tabs q Day for 3 days then take 1 tablet q Day for 3 days then D/C #18 No Action metformin 500 mg Tablet 1,000 mg PO .wmeals rosuvastatin 5 mg Tablet 5 mg PO QPM Rx Instructions: TAKE WITH DINNER diltiazem HCl [Matzim LA] 180 mg tablet extended release 24 hr 180 mg PO Q24H Patient Comments: TAKE 1 TABLET BY MOUTH EVERY DAY FOR 90 DAYS losartan 50 mg tablet 50 mg PO QDAY Patient Comments: TAKE 1 TABLET BY MOUTH EVERY DAY albuterol sulfate 90 mcg/actuation HFA aerosol inhaler 1 inh inhalation Q4H furosemide [Lasix] 40 mg tablet 20 mg PO QDAY Eliquis 2.5 mg tablet 2.5 mg PO QDAY Patient Comments: TAKE 1 TABLET BY MOUTH TWICE A DAY Problem List Clinical Impression: Recurrent pleural effusion, Acute exacerbation of chronic obstructive airways disease Patient/Caregiver Discharge Instructions Discharge Activity: activity as tolerated Education Materials: Pleural Effusion, COPD Meds Additional Instructions: Follow-up with your regular doctor and consider referral to pulmonary medicine Patient has recurrent pleural effusions and may need to have thoracentesis again in the near future. Please asked to see a pulmonary doctor so this can be addressed for a long-term solution. Take medications as directed. Print Language: Kinyarwanda Stand Alone Forms: Amy Award Info., Patient Portal Info Letter
== END 2025-04-23 13:35 | disposition home or self-care (01) ==
LOC: SERX 13:53
PROVIDERS: Nurse Practitioner Family; Emergency Provider Family Medicine; PCP Student in an Organized Health Care Education/Training Program
DX: J90 Pleural effusion, not elsewhere classified (principal); J44.1 Chronic obstructive pulmonary disease with (acute) exacerbation; E11.9 Type 2 diabetes mellitus without complications; E78.5 Hyperlipidemia, unspecified; I11.0 Hypertensive heart disease with heart failure; I48.91 Unspecified atrial fibrillation; Z79.01 Long term (current) use of anticoagulants
CPT/HCPCS: 36415; 71045; 80053; 81001; 83735; 83880; 84484; 85025; 85610; 85730; 93005; 94640; 96361; 96374; 99284; J2919; J7030; J7611

== ENCOUNTER → 2025-04-27 | Outpatient (CLI) | payer MEDICARE, MEDICAID, SELFPAY ==
[2025-04-27 09:58] LABS: INR 1.1 (0.9-1.3); Partial Thromboplastin Time 25.6 Seconds (22.0-36.0); Prothrombin Time 11.5 Seconds (9.0-12.2)
[2025-04-27 10:11] LABS: Alanine Aminotransferase 13 U/L (10-49); Albumin, Serum 4.5 gm/dL (3.4-4.8); Albumin/Globulin Ratio 2.3 (1.2-2.2); Alkaline Phosphatase 56 U/L (46-116); Anion Gap 11 (7-16); Aspartate Amino Transferase 16 U/L (0-34); BUN/Creatinine Ratio 27 Ratio (12-20); Bilirubin,Total 0.4 mg/dL (0.3-1.2); Blood Urea Nitrogen 16 mg/dL (9-23); Calcium 9.2 mg/dL (8.3-10.6); Calcium (Corrected) 9.2 mg/dL (8.5-10.1); Carbon Dioxide 30.9 mMol/L (20.0-31.0); Chloride 101 mMol/L (98-107); Creatinine (Component) 0.6 mg/dL (0.6-1.3); Globulin 2.0 gm/dL (2.3-3.5); Glucose 127 mg/dL (74-106); Osmolality,Calculated 288 (275-295); Potassium 3.9 mMol/L (3.4-5.1); Sodium 143 mMol/L (136-145); Total Protein 6.5 gm/dL (5.7-8.2); eGFR > 60 See Note
[2025-04-27 10:14] LABS: Basophils # (Auto) 0.0 Thou/mm3 (0.0-0.2); Basophils % (Auto) 0 % (0-2.5); Eosinophils # (Auto) 0.1 Thou/mm3 (0.0-0.5); Eosinophils % (Auto) 2 % (0-10); Hematocrit 40.7 % (36.0-46.0); Hemoglobin 13.3 g/dL (12.0-16.0); Immature Granulocytes Auto 0.02 Thou/mm3 (0.00-0.00); Lymphocytes # (Auto) 1.4 Thou/mm3 (1.0-4.8); Lymphocytes % (Auto) 27 % (10-50); Mean Corpuscular HGB Conc 32.7 g/dl (31.0-37.0); Mean Corpuscular Hemoglobin 29.1 pg (25.0-35.0); Mean Corpuscular Volume 89 fL (80-100); Monocytes # (Auto) 0.4 Thou/mm3 (0.0-0.8); Monocytes % (Auto) 8 % (0-12); Neutrophils # (Auto) 3.4 Thou/mm3 (1.8-7.7); Neutrophils % (Auto) 62 % (37-80); Nucleated Red Blood Cell # 0.00 Thou/mm3 (0.00-0.00); Nucleated Red Blood Cell % 0 /100 WBC (0); Platelet Count 251 Thou/mm3 (140-440); RDW Standard Deviation 48.7 fL (36.4-46.3); Red Blood Count 4.57 Miln/mm3 (4.00-5.20); White Blood Count 5.4 Thou/mm3 (3.6-11.0)
== END | disposition home or self-care (01) ==
PROVIDERS: PCP Student in an Organized Health Care Education/Training Program; Referring Provider Student in an Organized Health Care Education/Training Program; Visit Provider Student in an Organized Health Care Education/Training Program
DX: J90 Pleural effusion, not elsewhere classified (principal)
CPT/HCPCS: 36415; 80053; 85025; 85610; 85730

== ENCOUNTER → 2025-04-28 | Outpatient (CLI) | payer MEDICARE, MEDICAID, SELFPAY ==
--- NOTE | 2025-04-28 08:39 | XR_ITS ---
EXAMINATION: PA lateral chest 2 views TECHNIQUE: Upright PA lateral chest 2 views Date and time: April 28, 2025, 0855 hours, comparison April 23, 2025 INDICATIONS: History right pleural effusion. FINDINGS: Again noted moderate right pleural fluid Normal heart size Mild vascular congestion Stable osseous structures IMPRESSION: Again noted moderate right pleural fluid
== END | disposition home or self-care (01) ==
PROVIDERS: PCP Student in an Organized Health Care Education/Training Program; Referring Provider Student in an Organized Health Care Education/Training Program; Visit Provider Student in an Organized Health Care Education/Training Program
DX: J90 Pleural effusion, not elsewhere classified (principal)
CPT/HCPCS: 71046

== ENCOUNTER → 2025-04-29 | Outpatient (CLI) | payer MEDICARE, MEDICAID, SELFPAY ==
--- NOTE | 2025-04-29 | XR_ITS ---
EXAMINATION: Upright PA chest single view TECHNIQUE: PA upright chest single view Date and time: April 29, 2025, 1213 hours INDICATIONS: Post right thoracentesis. FINDINGS: No pneumothorax post right thoracentesis Mild to moderate elevation left hemidiaphragm Normal heart size IMPRESSION: No pneumothorax post right thoracentesis
--- NOTE | 2025-04-29 11:30 | XR_ITS ---
EXAMINATION: Ultrasound-guided right thoracentesis Ultrasound right hemithorax Ultrasound left hemithorax Date and time: April 29, 2025, 1144 hours INDICATIONS: Difficulty breathing this week, significant right pleural fluid on chest x-ray this morning TECHNIQUE AND FINDINGS: Multiple high resolution sonographic images right and left hemithoraces demonstrate large right pleural effusion Informed consent provided. Timeout performed. Skin prepped over the right hemithorax and sterile drape applied hand hygiene ultrasound sterile technique 1% lidocaine administered for local anesthesia Utilizing ultrasonographic guidance successful percutaneous placement 5 [place] catheter in the right pleural space 925 cc pleural fluid removed Estimated blood loss 0 cc IMPRESSION: Successful ultrasound-guided right thoracentesis, 925 cc pleural fluid removed
== END | disposition home or self-care (01) ==
PROVIDERS: PCP Student in an Organized Health Care Education/Training Program; Referring Provider Student in an Organized Health Care Education/Training Program; Visit Provider Student in an Organized Health Care Education/Training Program
DX: J90 Pleural effusion, not elsewhere classified (principal)
CPT/HCPCS: 32555; C1729

== ENCOUNTER → 2025-05-05 | Outpatient (CLI) | payer MEDICARE, MEDICAID, SELFPAY ==
[2025-05-05 10:10] LABS: Basophils # (Auto) 0.0 Thou/mm3 (0.0-0.2); Basophils % (Auto) 0 % (0-2.5); Eosinophils # (Auto) 0.0 Thou/mm3 (0.0-0.5); Eosinophils % (Auto) 1 % (0-10); Hematocrit 38.2 % (36.0-46.0); Hemoglobin 12.3 g/dL (12.0-16.0); Immature Granulocytes Auto 0.02 Thou/mm3 (0.00-0.00); Lymphocytes # (Auto) 1.3 Thou/mm3 (1.0-4.8); Lymphocytes % (Auto) 22 % (10-50); Mean Corpuscular HGB Conc 32.2 g/dl (31.0-37.0); Mean Corpuscular Hemoglobin 29.4 pg (25.0-35.0); Mean Corpuscular Volume 91 fL (80-100); Monocytes # (Auto) 0.6 Thou/mm3 (0.0-0.8); Monocytes % (Auto) 10 % (0-12); Neutrophils # (Auto) 3.9 Thou/mm3 (1.8-7.7); Neutrophils % (Auto) 68 % (37-80); Nucleated Red Blood Cell # 0.00 Thou/mm3 (0.00-0.00); Nucleated Red Blood Cell % 0 /100 WBC (0); Platelet Count 219 Thou/mm3 (140-440); RDW Standard Deviation 51.0 fL (36.4-46.3); Red Blood Count 4.19 Miln/mm3 (4.00-5.20); White Blood Count 5.8 Thou/mm3 (3.6-11.0)
[2025-05-05 10:23] LABS: Glucose Estimated Average 111 mg/dL (80-131); Hemoglobin A1C 5.5 % Hgb (4.8-6.0)
[2025-05-05 10:53] LABS: Alanine Aminotransferase 8 U/L (10-49); Albumin, Serum 4.4 gm/dL (3.4-4.8); Albumin/Globulin Ratio 2.0 (1.2-2.2); Alkaline Phosphatase 57 U/L (46-116); Anion Gap 10 (7-16); Aspartate Amino Transferase 15 U/L (0-34); BUN/Creatinine Ratio 30 Ratio (12-20); Bilirubin,Total 0.3 mg/dL (0.3-1.2); Blood Urea Nitrogen 15 mg/dL (9-23); Calcium 9.3 mg/dL (8.3-10.6); Calcium (Corrected) 9.3 mg/dL (8.5-10.1); Carbon Dioxide 30.2 mMol/L (20.0-31.0); Cardiac Risk Estimate 2.2 RATIO (3.7-5.6); Chloride 103 mMol/L (98-107); Cholesterol 143 mg/dL (132-200); Creatinine (Component) 0.5 mg/dL (0.6-1.3); Free T4 (Free Thyroxine) 1.35 ng/dL (0.89-1.76); Globulin 2.2 gm/dL (2.3-3.5); Glucose 96 mg/dL (74-106); HDL Cholesterol 66 mg/dL (40-60); LDL Cholesterol,Calculated 67 mg/dL (0-130); Magnesium 1.5 mg/dL (1.6-2.6); Osmolality,Calculated 285 (275-295); Potassium 3.9 mMol/L (3.4-5.1); Sodium 143 mMol/L (136-145); Thyroid Stimulating Hormone 2.68 uIU/mL (0.55-4.78); Total Protein 6.6 gm/dL (5.7-8.2); Triglycerides 51 mg/dL (30-150); eGFR > 60 See Note
[2025-05-05 10:59] LABS: CA 125 112.0 U/mL (<30.2); Carcinoembryonic Antigen 2.5 ng/mL (0.0-5.0)
[2025-05-10 07:05] LABS: CA 19-9 Antigen* 7 U/mL (<34)
== END | disposition home or self-care (01) ==
LOC: COPL 08:10
PROVIDERS: PCP Family Medicine; Referring Provider Obstetrics & Gynecology; Visit Provider Student in an Organized Health Care Education/Training Program
DX: J90 Pleural effusion, not elsewhere classified (principal); N85.8 Other specified noninflammatory disorders of uterus; K76.9 Liver disease, unspecified; K74.69 Other cirrhosis of liver; I48.91 Unspecified atrial fibrillation; I50.30 Unspecified diastolic (congestive) heart failure
CPT/HCPCS: 36415; 80053; 80061; 82378; 83036; 83735; 84439; 84443; 85025; 86301; 86304

== ENCOUNTER → 2025-05-12 | Outpatient (CLI) | payer MEDICARE, MEDICAID, SELFPAY ==
--- NOTE | 2025-05-12 14:00 | XR_ITS ---
Examination: MRI abdomen without contrast Date and time of exam: May 12, 2025, 1548 hours INDICATIONS: Diagnosis other specified noninflammatory disorders of the uterus, uterine mass, cirrhosis Technique: Multiple MRI axial and sagittal sections abdomen. Sagittal T2-weighted images, TR 3500, TE 118 T1 weighted transverse sections, TR 688 T8.5, T2-weighted sagittal sections T1 weighted sagittal sections TR 621, TE 30 T2 axial sections, TR 4, 190, TE 84. Findings: Right lung pleural-parenchymal disease Liver is irregular in contour, no focal liver lesions Spleen is not enlarged No extrahepatic biliary tract dilatation, no gallstones noted Common bile duct 8 mm no common bile duct or common hepatic duct stones Pancreatic duct dilated 4 mm, no pancreatic mass or peripancreatic edema No bowel obstruction Aorta normal size Tiny bilateral renal cysts, no hydronephrosis Thoracolumbar dextroscoliosis 15 degrees IMPRESSION: Cirrhosis versus primary hepatocellular disease Negative for cholelithiasis Common bile duct 8 mm, no common bile duct or common hepatic duct stones Mildly dilated pancreatic duct seen with prior episodes of pancreatitis, no current acute pancreatitis Aorta normal size No abdominal lymphadenopathy No ascites
== END | disposition home or self-care (01) ==
LOC: SMRI 13:42
PROVIDERS: PCP Student in an Organized Health Care Education/Training Program; Referring Provider Obstetrics & Gynecology; Visit Provider Obstetrics & Gynecology
DX: K74.60 Unspecified cirrhosis of liver (principal); K85.90 Acute pancreatitis without necrosis or infection, unspecified
CPT/HCPCS: 74181